=== PATIENT | male | born 1955 | race Caucasian/White ===

== ENCOUNTER → 2022-03-19 08:16 | Outpatient (BNVA) | payer MEDICARE, SELFPAY | PROVIDERS: PCP Internal Medicine; Visit Provider Psychiatry & Neurology Neurology | DX: G20 Parkinson's disease (principal); G47.52 REM sleep behavior disorder; F41.9 Anxiety disorder, unspecified | CPT/HCPCS: 99202 ==

== ENCOUNTER → 2022-06-18 07:48 | Outpatient (BNVA) | payer MEDICARE, SELFPAY | PROVIDERS: PCP Internal Medicine; Visit Provider Nurse Practitioner Family | DX: G20 Parkinson's disease (principal); G47.52 REM sleep behavior disorder; F41.9 Anxiety disorder, unspecified | CPT/HCPCS: 99212 ==

== ENCOUNTER → 2022-07-23 11:19 | Outpatient (BNVA) | payer MEDICARE, SELFPAY | PROVIDERS: PCP Internal Medicine; Visit Provider Nurse Practitioner Family | DX: G20 Parkinson's disease (principal); G47.52 REM sleep behavior disorder; F41.9 Anxiety disorder, unspecified | CPT/HCPCS: 99212 ==

== ENCOUNTER → 2022-11-13 08:52 | Outpatient (BNVA) | payer MEDICARE, SELFPAY | PROVIDERS: PCP Internal Medicine; Visit Provider Nurse Practitioner Family | DX: G20 Parkinson's disease (principal); R41.82 Altered mental status, unspecified; F41.9 Anxiety disorder, unspecified; G47.52 REM sleep behavior disorder | CPT/HCPCS: 99212 ==

== ENCOUNTER 2022-12-11 07:39 | Outpatient (REF) | payer MEDICARE, SELFPAY ==
--- NOTE | 2022-12-11 07:49 | EEG_ITS ---
This is a 16-channel EEG with an EKG lead. The patient is reported awake during the tracing. Background EEG rhythm is about 8 hertz 5 to 20 microvolt posteriorly and lower amplitude fast anteriorly. Photic stimulation does not produce any significant driving. Hypoventilation is not performed. Cardiac lead does not reveal any significant abnormality. No sharp wave spikes or paroxysmal tendency or asymmetry noted. IMPRESSION: Mild slowing with no evidence of seizure disorder. MD ANATOLY Kim/DORIS / [phone]
== END 2022-12-11 07:40 | disposition home or self-care (01) ==
LOC: HO.NEURO 07:39
PROVIDERS: PCP Internal Medicine; Visit Provider Nurse Practitioner Family
DX: R41.82 Altered mental status, unspecified (principal)
CPT/HCPCS: 95816

== ENCOUNTER 2023-05-13 09:24 | Outpatient (AMB) | payer MEDICARE, SELFPAY ==
--- NOTE | 2023-05-13 09:29 | MHC.OFFVIS ---
Intake Vital Signs 05/13/23 09:34 Weight 154 lb BP 112/62 Blood Pressure Location Lt brachial Position Sitting Pulse 70 Pulse Source Pulse Oximeter Pulse Oximetry (%) 77 L Oxygen Delivery Method Room Air Intake Visit Reasons: 6 mo f/u Parkinsons -Lvm Intake Note: F/U Parkinson, patient states he had fallen out of bed and also when stepping up on a curve. More shaking Senior Policy Analyst Required: No Allergies No Known Allergies Allergy (Verified 05/13/23 09:31) HPI HPI Comments History of Present Illness Details 67 y/o male patient presents with his for follow up of Parkinson disease. reports he is more slow in reaction and cognitive processing. No more episodes starring off. EEG result was mild slowing but not evidence of seizure. He has fall from bed, and hit his head. Now he uses bed rails to prevent to fall. He is on clonazepam 0.5 mg qHS for REM behavior. Pt's also reports that patient snores, and witnessed apnea spells. He is having non refreshing sleep with daytime sleepiness. Pt reports that his anxiety has been better with citalopram 20 mg daily. No hallucination. He is on PT four times a week. Pt is on Sinemet 25/100 mg, 1 tab TID, 6 am, 12 am and 5-6 am, he feels more tremor early in the morning and 11pm, difficulty turn and struggling pulling his blanket, and his feels him tremor in the bed. He needs helps for dressing. He uses MiraLax to manage constipation. [facility] Medical History Allergic rhinitis BPH (benign prostatic hyperplasia) CAD (coronary artery disease) Diverticulosis Hyperlipidemia Ischemic cardiomyopathy Nephrolithiasis Surgical History H/O carotid endarterectomy H/O heart surgery Family History Mother Parkinson disease Father Cirrhosis of liver Social History (Updated 05/13/23 @ 09:34 by Fozia Vargas [facility] [address]) Alcohol intake: never Patient Tobacco Use Status: Never used Tobacco Review of Systems Const All systems reviewed & are unremarkable except as noted in HPI and below Neuro Reports Abnormal speech present Physical Exam Vital Signs: Last Vital Signs Pulse 70 11/09/23 09:34 BP 112/62 05/13/23 09:34 Pulse Ox 77 L 05/13/23 09:34 Oxygen Delivery Method Room Air 05/13/23 09:34 Const General: cooperative and healthy appearing Nutritional Appearance: average body habitus Orientation/consciousness: patient oriented x3 HEENT Head: Yes normal to inspection Eyes Pupils: Equal, round and reactive pupils present Neck Other: mild antecollis Neuro Other: right wirst more stiff than left. Left hand more tremor. General: patient oriented x3 Cranial nerves: Yes Facial sensation intact/muscles of mastication intact, Yes Equal, round and reactive pupils present, Yes Bilaterally intact EOM present, Yes Nystagmus not present, Yes Normal facial strength present and Yes Midline tongue present Cognition (Neuro): normal cognition Speech: Abnormal speech present Motor exam (neuro): 5/5 motor strength present throughout Deep tendon reflexes (DTR's): Right triceps reflex intensity grade: 2+, Left triceps reflex intensity grade: 2+, Rt Biceps (C5, C6): 2+, Left biceps reflex intensity grade: 2+, Right brachioradialis reflex intensity grade: 2+, Left brachioradialis reflex intensity grade: 2+, Right patellar reflex intensity grade: 2+ and Left patellar reflex intensity grade: 2+ Psych Mental Status: mental status grossly normal Affect: normal affect Assessment & Plan Assessment & Plan (1) Anxiety: Code(s): F41.9 - Anxiety disorder, unspecified (2) Parkinson's disease: Code(s): G20 - Parkinson's disease (3) REM behavioral disorder: Code(s): G47.52 - REM sleep behavior disorder (4) Daytime sleepiness: Code(s): R40.0 - Somnolence (5) Snoring: Code(s): R06.83 - Snoring Plan Advised patient to continue citalopram 20mg qd for anxiety and clonazepam 0.5mg 1/2-1 tab along with melatonin 3 mg qhs for RBD. Continue to take Carbidopa/Levodopa 25-100 mg, 1 tab TID. Advised patient to take Sinemet 25/100 mg ER qHS. Increase fluids and continue to use miralax to manage constipation. Continue to do daily exercise. Advised patient to undergo home sleep study to assess sleep apnea. Orders: Orders RT home sleep study 05/13/23 R06.83 - Snoring, R40.0 - Somnolence Medications: New carbidopa-levodopa 25-100 mg ER 1 tab PO BEDTIME 30 days 30 tabs 2RF Coding Level of Care Code Est Pt Level 4 (03513) Diagnoses Anxiety F41.9 Parkinson's disease G20 REM behavioral disorder G47.52 Daytime sleepiness R40.0 Snoring R06.83
[2023-05-13 09:34] VITALS: BP 112/62; PULSE 70; O2SAT 77
== END 2023-05-13 10:13 | disposition home or self-care (01) ==
PROVIDERS: Visit Provider Nurse Practitioner Family
DX: G20.A1 Parkinson's disease without dyskinesia, without mention of fluctuations (principal); F41.9 Anxiety disorder, unspecified; G47.52 REM sleep behavior disorder; R40.0 Somnolence; R06.83 Snoring
CPT/HCPCS: 99214

== ENCOUNTER → 2023-05-13 09:24 | Outpatient (BNVA) | payer MEDICARE, SELFPAY | PROVIDERS: Visit Provider Nurse Practitioner Family | DX: R06.83 Snoring (principal); R40.0 Somnolence; G47.52 REM sleep behavior disorder; I25.10 Atherosclerotic heart disease of native coronary artery without angina pectoris; I25.5 Ischemic cardiomyopathy | CPT/HCPCS: 99212 ==

== ENCOUNTER 2023-10-01 13:11 | Outpatient (AMB) | payer MEDICARE, SELFPAY ==
--- NOTE | 2023-10-01 13:24 | A.OFFVIS_ITS ---
Intake Vital Signs 10/01/23 13:43 Height 5 ft 9 in Weight 147 lb BMI 21.7 BP 100/70 Blood Pressure Location Rt brachial Position Sitting Pulse 57 Pulse Source Pulse Oximeter Pulse Oximetry (%) 99 Oxygen Delivery Method Room Air Intake Visit Reasons: F/U-Confirmed Intake Note: Patient presents for f/u. Wants to know if he could get a 90 day prescription for Clonazepam. 90 day for Carbidopa/Levodopa ER and would like for prescriptions to be send to [facility] mail service pharmacy. More sweating at night and strong under arm body order pt wants to know if is the meds or the Parkinson's? More confusion and more memory loss. Allergies No Known Allergies Allergy (Verified 10/01/23 13:35) HPI HPI Comments History of Present Illness Details 67 y/o male patient presents with his wi fe for follow up of Parkinson disease. reports he is more slow in reaction and cognitive processing. No more episodes starring off. EEG result was mild slowing but not evidence of seizure. 67 y/o male patient presents with his wi fe for follow up of Parkinson disease. reports he is more slow in reaction and cognitive processing. No more episodes starring off. EEG result was mild slowing but not evidence of seizure. October 10 home sleep study scheduled. He has fall from bed, and hit his head. Now he uses bed rails to prevent to fall. He is on clonazepam 0.5 mg qHS for REM behavior. Pt's also reports that patient snores, and witnessed apnea spells. He is having non refreshing sleep with daytime sleepiness. Pt reports that his anxiety has been better with citalopram 20 mg daily. No hallucination. He is on PT four times a week. Pt is on Sinemet 25/100 mg, 1 tab TID, 9 am, 2 pm and 7 pm, He needs helps for dressing. He uses MiraLax to manage constipation. He has fall from bed, and hit his head. Now he uses bed rails to prevent to fall. He is on clonazepam 0.5 mg qHS for REM behavior. Pt's also reports that patient snores, and witnessed apnea spells. He is having non refreshing sleep with daytime sleepiness. Pt reports that his anxiety has been better with citalopram 20 mg daily. No hallucination. He is on PT four times a week. Pt is on Sinemet 25/100 mg, 1 tab TID, 6 am, 12 am and 5-6 am, he feels more tremor early in the morning and 11pm, difficulty turn and struggling pulling his blanket, and his feels him tremor in the bed. He needs helps for dressing. He uses MiraLax to manage constipation. [facility] Medical History Allergic rhinitis BPH (benign prostatic hyperplasia) CAD (coronary artery disease) Diverticulosis Hyperlipidemia Ischemic cardiomyopathy Nephrolithiasis Surgical History H/O carotid endarterectomy H/O heart surgery Family History Mother Parkinson disease Father Cirrhosis of liver Social History Alcohol intake: never Patient Tobacco Use Status: Never used Tobacco Physical Exam Vital Signs: Last Vital Signs Pulse 57 10/01/23 13:43 BP 100/70 10/01/23 13:43 Pulse Ox 99 10/01/23 13:43 Oxygen Delivery Method Room Air 10/01/23 13:43 BMI result Body Mass Index 21.7 Assessment & Plan Assessment & Plan (1) Anxiety: Code(s): F41.9 - Anxiety disorder, unspecified (2) Parkinson's disease: Code(s): G20 - Parkinson's disease (3) REM behavioral disorder: Code(s): G47.52 - REM sleep behavior disorder (4) Daytime sleepiness: Code(s): R40.0 - Somnolence (5) Snoring: Code(s): R06.83 - Snoring Plan Advised patient to continue citalopram 20mg qd for anxiety and clonazepam 0.5mg 1/2-1 tab along with melatonin 3 mg qhs for RBD. Continue to take Carbidopa/Levodopa 25-100 mg, 1 tab TID. Advised patient to take Sinemet 25/100 mg ER qHS. Increase fluids and continue to use miralax to manage constipation. Continue to do daily exercise. Advised patient to undergo home sleep study to assess sleep apnea. Coding Diagnoses Anxiety F41.9 Parkinson's disease G20 REM behavioral disorder G47.52 Daytime sleepiness R40.0 Snoring R06.83
--- NOTE | 2023-10-01 13:41 | A.OFFVIS_ITS ---
Intake Vital Signs 10/01/23 13:43 Height 5 ft 9 in Weight 147 lb BMI 21.7 BP 100/70 Blood Pressure Location Rt brachial Position Sitting Pulse 57 Pulse Source Pulse Oximeter Pulse Oximetry (%) 99 Oxygen Delivery Method Room Air Intake Visit Reasons: F/U-Confirmed Intake Note: Patient presents for F/U. Pt. wants to know if he could get a 90 day pre scription for Clonazepam. 90 day prescription for Carbidopa/Levodopa ER. Would like prescriptions to be send to [facility] service pharmacy. More sweating at night and srtong odor under arms. Pt. wants to know if it's the meds or the Parkinsons? Confusion and more memory loss. Allergies No Known Allergies Allergy (Verified 10/01/23 13:35) HPI HPI Comments History of Present Illness Details 68 y/o male patient presents with his wi fe for follow up of Parkinson disease. Pt is on Sinemet 25/100 mg, 1 tab TID, 9 am, 2 pm and 7 pm. Pt started Sinemet ER since the last visit. He states that he has less tremor, can move more easily at night, and early in the morning. He still needs helps for dressing. He uses MiraLax to manage constipation. He walks slowly, but no freezing episodes or falls He is on clonazepam 0.5 mg qHS for REM behavior. He sleeps well, uses bed rails. Pt's also reports that patient snores, and witnessed apnea spells. He is having non refreshing sleep with daytime sleepiness. Home sleep study scheduled on October,. Pt reports that his anxiety has been better with citalopram 20 mg daily. No hallucination. [facility] Medical History Allergic rhinitis BPH (benign prostatic hyperplasia) CAD (coronary artery disease) Diverticulosis Hyperlipidemia Ischemic cardiomyopathy Nephrolithiasis Surgical History H/O carotid endarterectomy H/O heart surgery Family History Mother Parkinson disease Father Cirrhosis of liver Social History Alcohol intake: never Patient Tobacco Use Status: Never used Tobacco Review of Systems Const All systems reviewed & are unremarkable except as noted in HPI and below Neuro Reports Abnormal speech present Physical Exam Vital Signs: Last Vital Signs Pulse 57 10/01/23 13:43 BP 100/70 10/01/23 13:43 Pulse Ox 99 10/01/23 13:43 Oxygen Delivery Method Room Air 10/01/23 13:43 BMI result Body Mass Index 21.7 Const General: cooperative and healthy appearing Nutritional Appearance: average body habitus Orientation/consciousness: patient oriented x3 HEENT Head: Yes normal to inspection Eyes Pupils: Equal, round and reactive pupils present Neck Other: mild antecollis Neuro Other: right wirst more stiff than left. Left hand more tremor. General: patient oriented x3 Cranial nerves: Yes Facial sensation intact/muscles of mastication intact, Yes Equal, round and reactive pupils present, Yes Bilaterally intact EOM present, Yes Nystagmus not present, Yes Normal facial strength present and Yes Midline tongue present Cognition (Neuro): normal cognition Speech: Abnormal speech present Motor exam (neuro): 5/5 motor strength present throughout Deep tendon reflexes (DTR's): Right triceps reflex intensity grade: 2+, Left triceps reflex intensity grade: 2+, Rt Biceps (C5, C6): 2+, Left biceps reflex intensity grade: 2+, Right brachioradialis reflex intensity grade: 2+, Left brachioradialis reflex intensity grade: 2+, Right patellar reflex intensity grade: 2+ and Left patellar reflex intensity grade: 2+ Psych Mental Status: mental status grossly normal Affect: normal affect Assessment & Plan Assessment & Plan (1) Anxiety: Code(s): F41.9 - Anxiety disorder, unspecified (2) Parkinson's disease: Code(s): G20 - Parkinson's disease (3) REM behavioral disorder: Code(s): G47.52 - REM sleep behavior disorder (4) Daytime sleepiness: Code(s): R40.0 - Somnolence (5) Snoring: Code(s): R06.83 - Snoring Plan Advised patient to continue citalopram 20mg qd for anxiety and clonazepam 0.5mg 1/2-1 tab for RBD. Continue to take Carbidopa/Levodopa 25-100 mg, 1 tab TID and Sinemet 25/100 mg ER qHS. Increase fluids and continue to use miralax to manage constipation. Continue to do daily exercise. Advised patient to undergo home sleep study to assess sleep apnea. Coding Level of Care Code Est Pt Level 4 (57900) Diagnoses Anxiety F41.9 Parkinson's disease G20 REM behavioral disorder G47.52 Daytime sleepiness R40.0 Snoring R06.83
[2023-10-01 13:43] VITALS: BP 100/70; PULSE 57; O2SAT 99; BMI 21.7
== END 2023-10-01 14:20 | disposition home or self-care (01) ==
PROVIDERS: PCP Internal Medicine; Visit Provider Nurse Practitioner Family
DX: G20.A1 Parkinson's disease without dyskinesia, without mention of fluctuations (principal); F41.9 Anxiety disorder, unspecified; G47.52 REM sleep behavior disorder; R40.0 Somnolence; R06.83 Snoring
CPT/HCPCS: 99214

== ENCOUNTER → 2023-10-01 13:11 | Outpatient (BNVA) | payer MEDICARE, SELFPAY | PROVIDERS: PCP Internal Medicine; Visit Provider Nurse Practitioner Family | DX: G20.A1 Parkinson's disease without dyskinesia, without mention of fluctuations (principal); F41.9 Anxiety disorder, unspecified; G47.52 REM sleep behavior disorder; R40.0 Somnolence; R06.83 Snoring | CPT/HCPCS: 99212 ==

== ENCOUNTER → 2023-10-11 12:46 | Outpatient (REF) | payer MEDICARE, SELFPAY | LOC: HO.SL 12:46 | PROVIDERS: PCP Internal Medicine; Visit Provider Nurse Practitioner Family | DX: G47.33 Obstructive sleep apnea (adult) (pediatric) (principal); R06.83 Snoring; R40.0 Somnolence; G47.52 REM sleep behavior disorder; I25.10 Atherosclerotic heart disease of native coronary artery without angina pectoris; I25.5 Ischemic cardiomyopathy | CPT/HCPCS: 95806 ==

== ENCOUNTER → 2023-10-11 13:24 | Outpatient (BNV) | payer MEDICARE, SELFPAY | PROVIDERS: PCP Internal Medicine; Visit Provider Psychiatry & Neurology Neurology | DX: G47.33 Obstructive sleep apnea (adult) (pediatric) (principal) | CPT/HCPCS: 95806 ==

== ENCOUNTER 2024-03-30 11:21 | Outpatient (AMB) | payer MEDICARE, SELFPAY ==
--- NOTE | 2024-03-30 11:22 | A.OFFVIS_ITS ---
Vital Signs 03/30/24 11:26 Height 5 ft 9 in Weight 142 lb 4 oz BMI 21.0 BP 80/60 L Blood Pressure Location Rt brachial Position Sitting Pulse 84 Pulse Source Pulse Oximeter Pulse Oximetry (%) 98 Oxygen Delivery Method Room Air Intake Visit Reasons: 6 mo f/u Intake Note: Patint presents for a 6 mo fu- Parkinson's disease. 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 Pt is on Sinemet 25/100 mg, 1 tab TID, 9 am, 2 pm and 7 pm. and CR at bedtime. His memory is worse. He has trouble expressing , slow responses. He still needs helps for dressing. He uses MiraLax to manage constipation. He walks slowly, but no freezing episodes or falls He is on clonazepam 0.5 mg qHS for REM behavior and he is better. He sleeps well, uses bed rails. He was diagnosed with VAN and started on AUtoPAP 5-20 but he is unable to tolerate it Pt reports that his anxiety has been better with citalopram 20 mg daily. No hallucination. [facility] Medical History (Updated 03/30/24 @ 14:13 by Beth Charles MD) Obstructive sleep apnea Allergic rhinitis Nephrolithiasis BPH (benign prostatic hyperplasia) Ischemic cardiomyopathy Hyperlipidemia Diverticulosis CAD (coronary artery disease) Surgical History H/O carotid endarterectomy H/O heart surgery Family History Mother Parkinson disease Father Cirrhosis of liver Social History Alcohol intake: never Patient Tobacco Use Status: Never used Tobacco Review of Systems Neuro Reports Abnormal speech present Physical Exam Vital Signs: Last Vital Signs Pulse 84 03/30/24 11:26 BP 80/60 L 03/30/24 11:26 Pulse Ox 98 03/30/24 11:26 Oxygen Delivery Method Room Air 03/30/24 11:26 BMI result Body Mass Index 21.0 Const General: cooperative and healthy appearing Nutritional Appearance: average body habitus Orientation/consciousness: patient oriented x3 HEENT Head: Yes normal to inspection Eyes Pupils: Equal, round and reactive pupils present Neck Other: mild antecollis Neuro Other: right wirst more stiff than left. Left hand more tremor. FFM and foot taps decreased L>R General: patient oriented x3 Cranial nerves: Yes Facial sensation intact/muscles of mastication intact, Yes Equal, round and reactive pupils present, Yes Bilaterally intact EOM present, Yes Nystagmus not present, Yes Normal facial strength present and Yes Midline tongue present Cognition (Neuro): normal cognition Speech: Abnormal speech present Motor exam (neuro): 5/5 motor strength present throughout Psych Mental Status: mental status grossly normal Affect: normal affect Assessment & Plan Assessment & Plan (1) Parkinson's disease: Code(s): G20 - Parkinson's disease Category: Medical Qualifiers: Dyskinesia presence: without dyskinesia Fluctuating manifestations: without fluctuating manifestations Qualified Code(s): G20.A1 - Parkinson's disease without dyskinesia, without mention of fluctuations (2) Anxiety: Code(s): F41.9 - Anxiety disorder, unspecified Category: Medical (3) REM behavioral disorder: Code(s): G47.52 - REM sleep behavior disorder Category: Medical (4) Obstructive sleep apnea: Code(s): G47.33 - Obstructive sleep apnea (adult) (pediatric) Category: Medical Plan Advised patient to continue citalopram 20mg qd for anxiety and clonazepam 0.5mg 1/2-1 tab for RBD. Increase Carbidopa/Levodopa 25-100 mg, 1 tab qid and Sinemet 25/100 mg ER qHS. Increase fluids and continue to use miralax to manage constipation. Continue to do daily exercise. will refer to [facility] for oral device to help with sleep apnea. Patient is unable to tolerate CPAP Orders: Referrals Dentistry Referral G47.33 - Obstructive sleep apnea (adult) (pediatric) Medications: Changed From carbidopa-levodopa 25-100 mg 1 tab PO TID 90 days 270 tabs 1RF To carbidopa-levodopa 25-100 mg 1 tab PO QID 90 days 360 tabs 1RF Coding Level of Care Code Est Pt Level 4 (88097) Complex EM visit Add On G2211 Diagnoses Parkinson's disease without dyskinesia or fluctuating manifestations G20.A1 Dyskinesia presence: without dyskinesia Fluctuating manifestations: without fluctuating manifestations Anxiety F41.9 REM behavioral disorder G47.52 Obstructive sleep apnea G47.33
[2024-03-30 11:26] VITALS: BP 80/60; PULSE 84; O2SAT 98; BMI 21.0
== END 2024-03-30 11:56 | disposition home or self-care (01) ==
PROVIDERS: PCP Internal Medicine; Visit Provider Psychiatry & Neurology Neurology
DX: G20.A1 Parkinson's disease without dyskinesia, without mention of fluctuations (principal); F41.9 Anxiety disorder, unspecified; G47.52 REM sleep behavior disorder; G47.33 Obstructive sleep apnea (adult) (pediatric)
CPT/HCPCS: 99214; G2211

== ENCOUNTER → 2024-03-30 11:21 | Outpatient (BNVA) | payer MEDICARE, SELFPAY | PROVIDERS: PCP Internal Medicine; Visit Provider Psychiatry & Neurology Neurology | DX: G20.A1 Parkinson's disease without dyskinesia, without mention of fluctuations (principal); G47.52 REM sleep behavior disorder; G47.33 Obstructive sleep apnea (adult) (pediatric); F41.9 Anxiety disorder, unspecified | CPT/HCPCS: 99212 ==

== ENCOUNTER 2024-08-02 11:08 | Outpatient (AMB) | payer MEDICARE, SELFPAY ==
--- NOTE | 2024-08-02 11:22 | A.OFFVIS_ITS ---
Vital Signs 08/02/24 11:23 Height 5 ft 9 in Weight 149 lb BMI 22.0 BP 90/62 Blood Pressure Location Rt brachial Position Sitting Intake Visit Reasons: 4m follow up Intake Note: Patient presents for 4 month follow up Allergies No Known Allergies Allergy (Verified 08/02/24 11:24) Medication List - Last Reconciled 08/02/24 by Beth Charles MD aspirin (Adult Low Dose Aspirin) 81 mg PO DAILY carbidopa-levodopa 25-100 mg 1 tab PO QID 90 days carbidopa-levodopa 25-100 mg ER 1 tab PO BEDTIME 90 days citalopram 20 mg PO DAILY 90 days clonazepam 0.5 mg PO BEDTIME 90 days evolocumab (Repatha SureClick) 140 mg subcut Q2W polyethylene glycol 3350 (Miralax) 17 grams PO DAILY HPI Comments Details: 69 y/o male patient presents with his for follow up of Parkinson disease.He is slower with his ADLS since his last visit.He needs occasional help with putting on his shirt .He had 1 fall last month while he was working out side - tripped on something.SPeech is slower , Memory is slower. Pt is on Sinemet 25/100 mg, 1 tab TID, 9 am, 2 pm and 7 pm. and CR at bedtime. He uses MiraLax to manage constipation. He is on clonazepam 0.5 mg qHS for REM behavior and he is better. He sleeps well, uses bed rails. He was diagnosed with VAN and started on AUtoPAP 5-20 but he is unable to tolerate it AHI was 14 and O 2 melanie was 81 % Pt reports that his anxiety has been better with citalopram 20 mg daily. No hallucination. [facility] Medical History Obstructive sleep apnea Allergic rhinitis Nephrolithiasis BPH (benign prostatic hyperplasia) Ischemic cardiomyopathy Hyperlipidemia Diverticulosis CAD (coronary artery disease) Surgical History H/O carotid endarterectomy H/O heart surgery Family History Mother Parkinson disease Father Cirrhosis of liver Social History Alcohol intake: never Patient Tobacco Use Status: Never used Tobacco Review of Systems Neuro Reports Abnormal speech present Physical Exam Vital Signs: Last Vital Signs BP 90/62 08/02/24 11:23 BMI result Body Mass Index 22.0 Const General: cooperative and healthy appearing Nutritional Appearance: average body habitus Orientation/consciousness: patient oriented x3 HEENT Head: Yes normal to inspection Eyes Pupils: Equal, round and reactive pupils present Neck Other: mild antecollis Neuro Other: right wrist more stiff than left. Left hand more tremor. FFM and foot taps decreased L>R- slower than last visit General: patient oriented x3 Cranial nerves: Yes Facial sensation intact/muscles of mastication intact, Yes Equal, round and reactive pupils present, Yes Bilaterally intact EOM present, Yes Nystagmus not present, Yes Normal facial strength present and Yes Midline tongue present Cognition (Neuro): normal cognition Speech: Abnormal speech present Motor exam (neuro): 5/5 motor strength present throughout Psych Mental Status: mental status grossly normal Affect: normal affect Assessment & Plan Assessment & Plan (1) Parkinson's disease: Code(s): G20 - Parkinson's disease Category: Medical Qualifiers: Dyskinesia presence: without dyskinesia Fluctuating manifestations: without fluctuating manifestations Qualified Code(s): G20.A1 - Parkinson's disease without dyskinesia, without mention of fluctuations (2) Anxiety: Code(s): F41.9 - Anxiety disorder, unspecified Category: Medical (3) REM behavioral disorder: Code(s): G47.52 - REM sleep behavior disorder Category: Medical (4) Obstructive sleep apnea: Code(s): G47.33 - Obstructive sleep apnea (adult) (pediatric) Category: Medical Plan Advised patient to continue citalopram 20mg qd for anxiety and clonazepam 0.5mg 1/2-1 tab for RBD. Increase Carbidopa/Levodopa 25-100 mg, 1.5 tab qid and Sinemet 25/100 mg ER qHS. Increase fluids and continue to use miralax to manage constipation. Continue to do daily exercise. will refer to [facility] for oral device to help with sleep apnea. Patient is unable to tolerate CPAP Orders: Orders PT Evaluation and Treatment Today G20.A1 - Parkinson's disease without dyskinesia, without mention of fluctuations Referrals Speech and Hearing Referral G20.A1 - Parkinson's disease without dyskinesia, without mention of fluctuations, R41.3 - Other amnesia Dentistry Referral G47.33 - Obstructive sleep apnea (adult) (pediatric) Medications: Changed From carbidopa-levodopa 25-100 mg 1 tab PO QID 90 days 360 tabs 1RF To carbidopa-levodopa 25-100 mg 1.5 tabs PO QID 90 days 540 tabs 1RF Coding Level of Care Code Est Pt Level 4 (59777) Complex EM visit Add On G2211 Diagnoses Parkinson's disease without dyskinesia or fluctuating manifestations G20.A1 Dyskinesia presence: without dyskinesia Fluctuating manifestations: without fluctuating manifestations Anxiety F41.9 REM behavioral disorder G47.52 Obstructive sleep apnea G47.33
[2024-08-02 11:23] VITALS: BP 90/62; BMI 22.0
--- OUTSIDE RECORDS SUMMARY | 2024-08-02 13:25 | XMS_ITS | Encounter Summary ---
Author Organization [facility] Address [address] [place] [address] Care Team Providers Care Carpet Journeyman Name Role Phone Miguel Chowdary MD Primary Care Provider [phone] Reason for Referral * Imaging (Routine) - Authorized Specialty Diagnoses / Procedures Referred By Suzy posada Referred To Contact Radiology Diagnoses Weight loss Decreased appetite History of myocardial infarct at age greater than [address] of the abdomen Procedures XR Esophagram Sukhdeep Schneider PA [address] [address] Referral ID Status Reason Start Date Expiration Date V isits Requested Visits Authorized [id number] Authorized 05/29/2024 05/29/2025 1 1 Reason for Visit * Reason Comments Weight Loss Encounter Details Date Type Department Care Team (Late st Contact Info) Description 05/29/2024 10:20 AM EST Office Visit Gastroenterology - [place] 175 [place] [address] [phone] Sukhdeep Schneider PA 175 [facility] [address] [place] [address] Weight loss (Primary Dx); Decreased appetite; History of myocardial infarct at age greater than 60 years; Abnormal CT of the abdomen Social History Tobacco Use Types Packs/Day Years Used Date Smoking Tobacco: Never Smokeless Tobacco: Never Alcohol Use Standard Drinks/Week Comments Not Currently 0 (1 standard drink = 0.6 oz pur e alcohol) Housing Instability Answer Date Recorde d Are you worried that in the next 2 months you may not have stable housing? Patient declined 06/22/2024 Food Access & Nutrition Answer Date Rec orded Do you have access to a vari ety of food including fruits and vegetables? Patient declined 06/22/2024 Health Literacy Answer Date Recorded How often do you need to hav e someone help you when you read instructions, pamphlets, or other written material from your doctor or pharmacy? Patient declined 06/22/2024 Caregiver: How often do you need to have someone help you when you read instructions, pamphlets, or other written material from your doctor or pharmacy? Not on file Financial Risk Answer Date Recorded How hard is it for you to pa y for the very basics like food, housing, medical care, and air conditioning / heating? Patient declined 06/22/2024 Transportation Answer Date Recorded Has the lack of transportati on kept you from meetings, work, or from getting things needed for daily living? Patient declined 06/22/2024 Has the lack of transportati on kept you from medical appointments or from getting medications? Patient declined 06/22/2024 Social Isolation Answer Date Recorded How often do you feel lonely or isolated from those around you? Patient declined 06/22/2024 Food Risk Answer Date Recorded Within the past 12 months we worried whether our food would run out before we got money to buy more. Patient declined 024 Within the past 12 months th e food we bought just didn't last and we didn't have money to get more. Patient declined 06/04 Dependent Care Answer Date Recorded Do you need help finding or paying for care for your loved ones. For example, child life assistant or elderly care for an older adult? Patient declined 06/22/2024 Education Answer Date Recorded Do you think completing more education or training, like finishing a GED, going to college, or learning a trade, would be helpful for you? Patient declined 06/22/2024 Employment and Income Answer Date Recor ded During the last four weeks, have you been actively looking for work? Unable to respond 06/22/2024 Living Situation Answer Date Recorded What is your living situation? 1 08/23/2023 Interpersonal Safety Answer Date Record ed Physical Abuse 06/08/2024 Verbal Abuse 06/08/2024 Sex and Gender Information Value Date Recorded Sex Assigned at Not on file Gender Identity Not on file Sexual Orientation Not on file Job Start Date Occupation Industry Not on file Not on file Not on file documented as of this encounter Last Filed Vital Signs Vital Sign Reading Time Taken Comments Blood Pressure 122/76 05/29/2024 10:22 AM EST Pulse 140 05/29/2024 10:22 AM EST Temperature - - Respiratory Rate - - Oxygen Saturation - - Inhaled Oxygen Concentration - - Weight 65.1 kg (143 lb 9.6 oz) 05/29/2024 10:22 AM EST Height 177.8 cm (5' 10 ) 05/29/2024 10:22 AM EST Body Mass Index 20.6 05/29/2024 10:22 AM EST documented in this encounter Patient Instructions * Attachments The following attachments cannot be sent through Care Everywhere. * CAD (Coronary Artery Disease): General Info (Barbadian) * Coronary Artery Disease (Barbadian) * Statins (Barbadian) * Weight Loss: Abnormal (Barbadian) documented in this encounter Progress Notes * REID Miranda - 05/29/2024 10:20 AM EST Patient seen for further discussion regarding weight loss and abnormal CT. Patient had reported losing about 15 lbs over the last couple of months and weight loss was unintentional. Patient underwentCT in Apr and it was noted for circumfrential wall thickening of the gastric antrum with a suggested direct visualization- EGD. Patient also reports that his appetite has slightly increased and has gain several pounds back. Patient also has had a colonoscopy several years ago but need the update study to verify the suggested repeat timeframe. Patient remarks that he did have an WV about 4 yrs agoand has not had the same appetite since. Does report issues with swallowing and choking with almostevery meal and suggest a modified barium swallow to further evaluate his choking episodes * REID Miranda - 05/29/2024 10:20 AM EST DENTIFIER: Kalia Taylor is a 68 y.o. old male who presents to the gastroenterology department todayfor re-evaluation of weight loss and abnormal CT as well as choking episodes. The biopsies of your stomach are showing mild inflammation associated with irritants. They do not contain any changes that were precancerous or associated with significant active inflammation or infection. HPI: 68-year-old gentleman seen for further discussion regarding weight loss and abnormal CT. Patient is accompanied by his . Patient had reported losing about 15 lbs over the last couple of months and weight loss was unintentional. Patient underwent CT in Apr and it was noted for circumfrential wall thickening of the gastric antrum with a suggested direct visualization- EGD. Patient also reports that his appetite has slightly increased in the recent past and has gain several pounds back. Patient denies any pain before or after eating. Patient also has had a colonoscopy in October 2021. There were 2 tubular adenomas that were removed from the transverse colon with a recommended 5-year repeat which would be in 2026. Patient remarks that he did have an WV about 4 yrs ago and has not had the same appetite since. Does report issues with swallowing and choking with almost every meal and suggest a modified bariumswallow to further evaluate his choking episodes. There is a question of whether he is also aspirating thus the decision for the modified barium swallow ROS: GENERAL: No malaise, significant weight loss or fever HEENT: No changes in hearing or vision, nose bleeds or swallowing problems NECK: No lumps, goiter, pain or significant neck swelling RESPIRATORY: No cough, wheezing or shortness of breath CARDIOVASCULAR: No chest pain, leg swelling or palpitations, history of WV in 2019 GI: Positive for episodes of choking and dysphagia, positive for abnormal CT, positive for polyps removed, weight loss MUSCULOSKELETAL: No joint pain or swelling, back pain, or muscle pain. SKIN: No lesions, rash or itching Neuro: Positive for Parkinson's disease The remainder of the review of systems is reviewed and negative. PAST MEDICAL HISTORY: Patient Active Problem List Diagnosis Date Noted Spinal stenosis of lumbar region with radiculopathy 05/16/2024 Chronic heart failure with preserved ejection fraction (HFpEF) ([facility]) 10/08/2023 Anxiety 12/21/2022 Parkinson disease ([facility]) 12/21/2022 Primary insomnia 12/21/2022 Primary hypertension 02/13/2022 STEMI involving right coronary artery ([facility]) 02/13/2022 Bilateral carotid artery stenosis 05/20/2021 Diverticulosis 04/05/2020 Ischemic cardiomyopathy 04/05/2020 Mixed hyperlipidemia 04/05/2020 Peyronie's disease 04/05/2020 Coronary artery disease involving [place] coronary artery of [place] heart without angina pectoris 12/21/2019 BPH (benign prostatic hyperplasia) 08/31/2014 Nephrolithiasis 07/31/2008 Allergic rhinitis 07/28/2005 SOCIAL HISTORY: Social History Tobacco Use Smoking status: Never Smokeless tobacco: Never Substance Use Topics Alcohol use: Not Currently FAMILY HISTORY: Family History Problem Relation Name Age of Onset Coronary artery disease Mother Coronary artery disease Father ACTIVE MEDICATIONS: Outpatient Medications Marked as Taking for the 05/29/24 encounter (Office Visit) with REID Miranda Medication Sig Dispense Refill aspirin 81 mg EC tablet Take 1 tablet (81 mg total) by mouth 1 (one) time each day. carbidopa-levodopa (Rytary) 23.75-95 mg per XR capsule Take by mouth at bedtime. carbidopa-levodopa (SINEMET) 25-100 mg per tablet Take 1 Tablet by mouth 4 times daily. citalopram (CeleXA) 10 mg tablet Take 1 tablet (10 mg total) by mouth 1 (one) time each day. clonazePAM (KlonoPIN) 0.5 mg tablet TAKE 1 TABLET BY MOUTH DAILY AT BEDTIME. ADMINISTER 30 MINUTES BEFORE BEDTIME evolocumab (Repatha Syringe) 140 mg/mL syringe Inject 140 mg into the skin. Every 14 days polyethylene glycol (MIRALAX) 17 gram packet Take 17 g by mouth daily. ALLERGIES: @ALL@ PHYSICAL EXAM: Visit Vitals BP 122/76 Pulse (!) 140 Ht 1.778 m (70 ) Wt 65.1 kg (143 lb 9.6 oz) BMI 20.60 kg/m?? Smoking Status Never BSA 1.81 m?? APPEARANCE: Alert and in no acute distress EYES: PERRLA, conjunctiva and sclera normal. MOUTH/THROAT: no erythema or exudates NECK: Neck supple, no adenopathy HEART: RRR with normal S1 and S2, no murmurs appreciated LUNG: clear to auscultation LYMPH NODES: grossly normal ABDOMEN: Soft, nontender, normal active bowel sounds throughout, no organomegaly RECTAL: Exam deferred. EXTREMITIES: Extremities warm and well perfused SKIN: Skin color, texture, turgor normal. LABS: No results found for: WBC , HGB , HCT , MCV , PLT , NA , K , CL , CO2 , GLUCOSE , BUN , CREATININE , CALCIUM , PROT , ALBUMIN , BILITOT , AST , ALT , URICACID , PHOS , MG , ALKPHOS , EGFR No results found for: SEDRATE , CRP , IRON , FERRITIN , CDIFFTOX , HPYLORI , STOOLCX , LIPASE , APTT , PT , INR , CELIAC , TTGIGA , GLIADINIGA , OCCULTBLD , CALPROTECTIN IMAGING: MRI OF LUMBAR SPINE NO CONTRAST MRI OF LUMBAR SPINE NO CONTRAST MR OF THE LUMBAR SPINE WITHOUT CONTRAST HISTORY: Left-sided sciatica. Technique: MR of the lumber spine was performed without contrast utilizing the standard departmental protocol. COMPARISON: Lumbar spine 04/20/2020. FINDINGS: Conus medullaris terminates at the [L2] level, and demonstrates normal signal. There is no abnormal thickening or clumping of the cauda equina nerve roots. There is slight retrolisthesis of L1 on L2. There is slight retrolisthesis of L2 on L3. There is slight retrolisthesis of L3 on L4. There is retrolisthesis of L5 relative to both L4 and S1. Vertebral body heights are normal. There is signal change of the bone marrow the endplates at multiple levels consistent with degenerative change.. There is disc desiccation at every level. There are parapelvic cysts of both kidneys. At T12-L1, there is disc bulging and endplate spurring on the sagittal sequences. No central canal stenosis. At L1-L2, there is slight retrolisthesis of L1 on L2. There is generalized disc bulging with bilateral lateral disc bulging, endplate spurring, and mild bilateral neural foraminal narrowing. No central canal stenosis . At L2-L3, there is slight retrolisthesis of L2 on L3. There is generalized disc bulging with bilateral lateral disc bulging right greater than left, endplate spurring, mild right neural foraminal narrowing and moderate left neural foraminal narrowing. No central canal stenosis . There is bilateral lateral recess narrowing with contact with the bilateral L3 nerve roots. At L3-L4, there is slight retrolisthesis of L3 on L4. There is generalized disc bulging with bilateral lateral disc bulging and small central disc herniation extending slightly caudad from the disc space, endplate spurring, ligamentous bulging, facet hypertrophy, severe left neural foraminal narrowing and mild left neural foraminal narrowing. There is bilateral lateral recess narrowing, left greater than right. There is mild central canal stenosis . At L4-L5, there is retrolisthesis of L5 relative to L4. There is generalized disc bulging with bilateral lateral disc bulging, moderate right neural foraminal narrowing, left neural foraminal narrowing, ligamentous bulging, severe facet hypertrophy, severe central stenosis stenosis with bunching of the nerve roots, and bilateral lateral recess stenosis with compression of the L5 nerve roots bilaterally. There is a small left paracentral disc herniation/bulge extending slightly craniad from the disc space and contacting the exiting left L4 nerve root. At L5-S1, there is disc space narrowing and retrolisthesis of L5 on S1. There is diffuse disc bulging with bilateral lateral disc bulging and small central disc bulge, extensive endplate spurring, moderate facet hypertrophy, moderate to severe bilateral neural foraminal narrowing with contact with the bilateral L5 nerve roots. There is bilateral lateral recess narrowing. No central canal stenosis.. IMPRESSION: IMPRESSION: Multilevel bony and discogenic degenerative changes as described. Severe central canal stenosis at L4-5. Compression L5 nerve roots bilaterally. Other findings as described. Not Vldtd CT Results for orders placed in visit on 04/14/24 CT ABD \T\ PELVIS W/CONTRAST Narrative CT ABD & PELVIS W/CONTRAST TECHNIQUE: Multidetector-row CT of the abdomen and pelvis was performed after administration of intravenous contrast (90 cc of Isovue-370) using tailored dose modulation techniques. Images were reconstructed in the axial, coronal, and sagittal planes. COMPARISON: Abdomen/pelvis CT on June 21, 2023. HISTORY: Unintentional weight loss. FINDINGS: Lower Chest: See separately dictated concurrently obtained chest CT report. Liver: Some of the hypodense hepatic lesions, the largest measuring 0.8 cm in the left hepatic lobe (3:18) are unchanged from previous CT that was obtained without intravenous contrast. Biliary: Normal gallbladder. No biliary ductal dilatation. Spleen: No splenomegaly. No focal splenic lesions. Pancreas: Unremarkable. Adrenal Glands: No nodules. Kidneys/Ureters: Bilateral parapelvic cysts. No hydronephrosis. Bowel: Orally administered contrast has reached the mid transverse colon. Circumferential wall thickening of the gastric antrum (3:32). No bowel distention. Moderate stool load within the proximal colonic loops. Peritoneum/Retroperitoneum: No free fluid or free air. Lymph Nodes: No lymphadenopathy. Pelvic Organs/Bladder: Urinary bladder is decompressed. Prostatomegaly. Vessels: No abnormality aortic aneurysm. Mild atherosclerotic disease with calcifications. Bones/Soft Tissues: Degenerative changes along the spine. No suspicious bone lesions. Chronic large coarse calcifications in the surface of the left gluteal musculature and in smaller amount on the right side. Impression IMPRESSION: 1. No suspicious masses or acute findings in the abdomen/pelvis. 2. Circumferential wall thickening of the gastric antrum without resulting in obstruction, of unclear clinical significance. If clinically concerning, consider correlation with endoscopy. 3. Prostatomegaly. IMPRESSION: 1. Weight loss 2. Decreased appetite 3. History of myocardial infarct at age greater than [address] of the abdomen PLAN: 1. Weight loss, decreased appetite, abnormal CT of abdomen, history of WV Patient states that since he had his WV in 2019, he has not had the same appetite. His states that he lost about 20 pounds over the last 10 months or so but patient feels that he has gained several pounds back. He does remark that his appetite has changed and does feel full easy. Due to his weight loss his PCP had ordered a CT of abdomen and pelvis. The results of the CT showed circumferential thickening of the antrum with a suggested direct visualization. Patient is not having any epigastric pain. Patient is having some issues with swallowing and more so with choking and there is a question of aspiration pneumonia so he will be scheduled for sinew with speech for further evaluation. Due to the abnormal finding on the CT, it is suggested that patient undergo an patient will be notified about the date for the endoscopy. The procedure(s) was explained to the patient and all questions were answered. The list of complications include: perforation, infection, bleeding, reaction to medications, and incomplete examination. Treatments that might be necessary to correct these complications if they occur include resting athome, hospitalization, intravenous fluid therapy, antibiotic therapy, blood transfusion, and rarely, surgery. Patient has been advised that they will need an escort home following the procedure. If the EGD is in the AM, they are aware that no food or drink after midnight. If procedure is after 11 AM, then nofood or drink eight hours prior to procedure. Patient to follow up in office as scheduled after procedure. Total time of today's encounter is 36 minutes in preparing to see the patient, reviewing labs, diagnostic studies as well as other provider notes, documenting in charting, creating an HPI, performinga medically appropriate exam, counseling patient length in regards to choking and dysphagia as wellas abnormal CT There was documentation in EMR after visit. None of which time was spent performing s eparately billable procedures or ancillary services. Much appreciation for allowing us to participate in patient's care Orders Placed This Encounter Procedures XR Esophagram XR Speech Evaluation w Cine/Video ADDITIONAL ORDERS: XR ESOPHAGRAM XR SPEECH EVALUATION W CINE/VIDEO REID Miranda documented in this encounter Plan of Treatment Upcoming Encounters Date Type Department Care Team (Late st Contact Info) Description 08/04/2024 2:00 PM EST Consult Orthopedics [address] [phone] Lokesh Floyd PA [address] [place], [place] 08/10/2024 11:00 AM EST Office Visit Adult Medicine [facility] [address] [place] [address] Garcia Jin PA [address] [place], [place] 08/16/2024 10:10 AM EST Office Visit Pulmonolgy - [place] [address] [phone] Rebecca Casey NP [address] [address] 08/17/2024 9:00 AM EST Appointment [facility] [address] [place] [phone] Scheduled Orders Name Type Priority Associated Diagnoses Orde r Schedule XR Esophagram Imaging Routine Weight loss Decreased appetite History of myocardial infarct at age greater than [address] of the abdomen Expected: 05/29/2024, Expires: 05/29/2025 XR Speech Evaluation w Cine/Video Imaging Routine Weight loss Decreased appetite History of myocardial infarct at age greater than [address] of the abdomen Expected: 05/29/2024, Expires: 05/29/2025 documented as of this encounter Visit Diagnoses Diagnosis Weight loss- Primary Loss of weight Decreased appetite Anorexia History of myocardial infarct at age greater than [address] of the abdomen Nonspecific (abnormal) findings on radiological and other examination of abdominal area, including retroperitoneum documented in this encounter Care Teams Carpet Journeyman Relationship Specialty Start Date End Date Miguel Chowdary MD [address] [place] [id number] PCP - General Internal Medicine 01/24/19 documented as of this encounter
--- OUTSIDE RECORDS SUMMARY | 2024-08-02 13:25 | XMS_ITS | Encounter Summary ---
Author Organization [facility] Address [address] [place] [address] Care Team Providers Care Machine Sander Name Role Phone Miguel Chowdary MD Primary Care Provider [phone] Encounter Details Date Type Department Care Team (Late st Contact Info) Description 12/08/2019 Scanned Document [facility] [place] [address] [place] [phone] Rm Francois MD [address] [facility] [address] [place] [address] Social History Tobacco Use Types Packs/Day Years Used Date Smoking Tobacco: Never Smokeless Tobacco: Never Alcohol Use Standard Drinks/Week Comments Never 0 (1 standard drink = 0.6 oz pur e alcohol) AUDIT-C Answer Date Recorded Frequency of Alcohol Consumption Never 10/16/2019 Average Number of Drinks Not on file 020 Frequency of Binge Drinking Not on file 10/03 Sex and Gender Information Value Date Recorded Sex Assigned at Not on file Gender Identity Not on file Sexual Orientation Not on file COVID-19 Exposure Response Date Recorded In the last month, have you been in contact with someone who was confirmed or suspected to have Coronavirus / COVID-19? No / Unsure 12/08/2019 8:48 AM EDT documented as of this encounter Plan of Treatment Not on file documented as of this encounter Visit Diagnoses Not on filedocumented in this encounter Care Teams Machine Sander Relationship Specialty Start Date End Date Miguel Chowdary MD [address] [place] [id number] PCP - General 09/28/19 documented as of this encounter
--- OUTSIDE RECORDS SUMMARY | 2024-08-02 13:25 | XMS_ITS | Encounter Summary ---
Author Organization [facility] Address [address] [place] [address] Care Team Providers Care Nursing Home Assistant Administrator Name Role Phone Miguel Chowdary MD Primary Care Provider [phone] Reason for Referral * Consultation (Routine) - Authorized Specialty Diagnoses / Procedures Referred By Contac t Referred To Contact Orthopaedics / Orthopedic Diagnoses Knee pain, unspecified chronicity, unspecified laterality Miguel Chowdary MD [address] [place] [address] Lokesh Floyd PA [address] [place] [id number] Referral ID Status Reason Start Date Expiration Date Visits Requested Visits Authorized [id number] Authorized Specialty Services Required 07/03/2025 1 1 Reason for Visit * Reason Onset Date Comments Knee Pain 07/03/2024 Encounter Details Date Type Department Care Team (Late st Contact Info) Description 07/03/2024 Telephone Adult Medicine [address] [address] Miguel Chowdary MD [address] [place] [address] [phone] Knee Pain Social History Tobacco Use Types Packs/Day Years [...] got money to buy more. Patient declined Within the past 12 months th e food we bought just didn't last and we didn't have money to get more. Patient declined 06/04 Dependent Care Answer Date Recorded Do you need help finding or paying for care for your loved ones. For example, child welfare consultant or elderly care for an older adult? [...] on file documented as of this encounter Progress Notes * Mercedes Luevano RN - 07/03/2024 12:01 PM EST Pt is aware * Miguel Chowdary MD - 07/03/2024 11:58 AM EST Please call patient and , I have referred patient to orthopedic service. * Mercedes Luevano RN - 07/03/2024 11:45 AM EST Pt has pain in right knee , he has had this pain for several weeks, was seen last week and had an xray but after visit stepped down hard and had sudden onset of [pain in the knee and now has more pain when walking Pt has no chest pain or SOB, has not been ill and has not had any N/V/D or fever, he has no other new joint pains, both knees are painful, slight swelling at inner aspect of the patella , no redness,denies any redness or pain in calves, he has nl CSM, knees are not locking or giving out but he haspain with full weight bearing Pt and are asking what they can do with this new pain . He was told to use conservative therapy for 6 weeks but he has more pain today * Arlet Johnson - 07/03/2024 11:18 AM EST Patient was seen 06/29/[address] Chowdary for knee pain and was told to call if worsened. Patient states he was walking down some steps yesterday and felt something break loose. Says its very painful and heis having a hard time standing. documented in this encounter Plan of Treatment Upcoming Encounters Date Type Department Care Team (Late st Contact Info) Description 08/04/2024 2:00 PM EST Consult Orthopedics - [place] [id number] [place], [place] [phone] Lokesh Floyd PA [address] [place], [place] 08/10/2024 11:00 AM EST Office Visit Adult Medicine [place] [address] [place], [place] [phone] Garcia Jin PA 444 [place], [place] 08/16/2024 10:10 AM EST Office Visit Pulmonolgy [facility] [address] [phone] Rebecca Casey NP [address] [address] 08/17/2024 9:00 AM EST Appointment [facility] Xray [address] [place] [phone] Scheduled Referrals Name Type Priority Associated Diagnoses Orde r Schedule Ambulatory referral to Orthopedic Outpatient Referral Routine Knee pain, unspecified chronicity, unspecified laterality Expected: 07/10/2024, Expires: 07/03/2025 documented as of this encounter Visit Diagnoses Diagnosis Knee pain, unspecified chronicity, unspecified laterality- Primary documented in this encounter Additional Health Concerns Assessment Noted Time PHQ-9 Depression Total Score: 0 06/22/20 24 6:18 PM EST documented as of this encounter Care Teams Nursing Home Assistant Administrator Relationship Specialty Start Date End Date Miguel Chowdary MD [address] [place] [address] PCP - General Internal Medicine 01/24/19 documented as of this encounter
--- OUTSIDE RECORDS SUMMARY | 2024-08-02 13:25 | XMS_ITS | Encounter Summary ---
Author Organization [facility] Address [address] [place] [address] Care Team Providers Care Urology Nurse Name Role Phone Miguel Chowdary MD Primary Care Provider [phone] Encounter Details Date Type Department Care Team (Late st Contact Info) Description 12/08/2019 Scanned Document [facility] Heart [facility] V[facility] [place] [address] [place] [phone] mR Francois MD [address] [facility] [address] [place] [address] Social History Tobacco Use Types Packs/Day Years [...] on filedocumented in this encounter Care Teams Urology Nurse Relationship Specialty Start Date End Date Miguel Chowdary MD [address] [place] [address] PCP - General 09/28/19 documented as of this encounter
--- OUTSIDE RECORDS SUMMARY | 2024-08-02 13:25 | XMS_ITS | Encounter Summary ---
Author Organization [facility] Address [address] [place] [address] Care Team Providers Care Frankfurter Inspector Name Role Phone Miguel Chowdary MD Primary Care Provider [phone] Reason for Visit * Reason Onset Date Comments Treatmeant Plan pwk 07/19/2024 Encounter Details Date Type Department Care Team ([facility] Contact Info) Description 07/19/2024 Telephone Adult Medicine [address] [phone] Flavia Miller [place] Treatmeant Plan pwk Social History Tobacco Use Types Packs/Day Years [...] your doctor or pharmacy? Not on file 024 Financial Risk Answer Date Recorded How hard [...] for your loved ones. For example, child watch attendant or elderly care for an older adult? [...] as of this encounter Progress Notes * Flavia [place] - 07/19/2024 11:39 AM EST Treatment Plan put in DrY's office for signature documented in this encounter Plan of Treatment Upcoming Encounters Date Type Department Care Team (Late st Contact Info) Description 08/04/2024 2:00 PM EST Consult Orthopedics - [place] [address] [place] [address] Lokesh Floyd PA [address] [place] [address] 08/10/2024 11:00 AM EST Office Visit [place] [facility] [address] [place] [address] Garcia Jin PA [address] [place] [address] 08/16/2024 10:10 AM EST Office Visit Pulmonolgy - [place] [address] [phone] Rebecca Casey NP [address] [address] 08/17/2024 9:00 AM EST Appointment [facility] Xray [address] [place] [phone] documented as of this encounter Visit Diagnoses Not on filedocumented in this encounter Additional Health Concerns Assessment Noted Time PHQ-9 Depression Total Score: 0 06/22/20 24 6:18 PM EST documented as of this encounter Care Teams Frankfurter Inspector Relationship Specialty Start Date End Date Miguel Chowdary MD [address] [place] [address] PCP - General Internal Medicine 01/24/19 documented as of this encounter
--- OUTSIDE RECORDS SUMMARY | 2024-08-02 13:25 | XMS_ITS | Encounter Summary ---
Author Organization [facility] Address [address] [place] [address] Care Team Providers Care Display Associate Name Role Phone Miguel Chowdary MD Primary Care Provider [phone] Encounter Details Date Type Department Care Team (Late st Contact Info) Description 11/22/2019 Scanned Document [facility] Heart & Vascular [place] [address] [place] [phone] Rm Francois MD [facility] [address] [place] [address] Social History Tobacco Use Types Packs/Day Years [...] have Coronavirus / COVID-19? No / Unsure 11/14/2019 11:40 AM EDT documented as of this encounter Plan of Treatment Not on file documented as of this encounter Visit Diagnoses Not on filedocumented in this encounter Care Teams Display Associate Relationship Specialty Start Date End Date Miguel Chowdary MD [address] [place] [address] PCP - General 09/28/19 documented as of this encounter
--- OUTSIDE RECORDS SUMMARY | 2024-08-02 13:25 | XMS_ITS | Encounter Summary ---
Author Organization [facility] Address [address] [place] [address] Care Team Providers Care Padder Cushion Name Role Phone Miguel Chowdary MD Primary Care Provider [phone] Encounter Details Date Type Department Care Team (Late st Contact Info) Description 12/08/2019 Scanned Document [facility] Heart & Vascular [place] [address] [place] [phone] Rm Francois MD [facility] [address] [place] [address] Social History Tobacco Use Types Packs/Day Years [...] on filedocumented in this encounter Care Teams Padder Cushion Relationship Specialty Start Date End Date Miguel Chowdary MD [address] [place] [address] PCP - General 09/28/19 documented as of this encounter
--- OUTSIDE RECORDS SUMMARY | 2024-08-02 13:25 | XMS_ITS | Encounter Summary ---
Author Organization [facility] Address [address] [place] [address] Care Team Providers Care Chief Of Anesthesiology Name Role Phone Miguel Chowdary MD Primary Care Provider [phone] Encounter Details Date Type Department Care Team (Late st Contact Info) Description 01/01/2020 Scanned Document [facility] Heart & Vascular [place] [address] [place] [phone] Rm Francois MD [facility] [address] [place] [address] Social History Tobacco Use Types Packs/Day Years [...] have Coronavirus / COVID-19? No / Unsure 12/18/2019 9:05 AM EDT documented as of this encounter Plan of Treatment Not on file documented as of this encounter Visit Diagnoses Not on filedocumented in this encounter Care Teams Chief Of Anesthesiology Relationship Specialty Start Date End Date Miguel Chowdary MD [address] [place] [address] PCP - General 09/28/19 documented as of this encounter
--- OUTSIDE RECORDS SUMMARY | 2024-08-02 13:25 | XMS_ITS | Encounter Summary ---
Author Organization [facility] Address [address] [place] [address] Care Team Providers Care Consumer Loan Officer Name Role Phone Miguel Chowdary MD Primary Care Provider [phone] Reason for Referral * Imaging (Routine) - Closed Specialty Diagnoses / Procedures Referred By Suzy posada Referred To Contact Radiology Diagnoses Allergic rhinitis, unspecified seasonality, unspecified trigger Procedures CT Chest wo Contrast Rebecca Casey NP [address] [address] [facility] [address] Scan [address] [place], [place] Referral ID Status Reason Start Date Expiration Date Visits Re quested Visits Authorized [id number] Closed 05/15/2024 05/15/2025 1 1 Reason for Visit * Imaging (Routine) - Closed Specialty Diagnoses / Procedures Referred By Suzy posada Referred To Contact Radiology Diagnoses Allergic rhinitis, unspecified seasonality, unspecified trigger Procedures CT Chest wo Contrast Rebecca Casey NP [address] Scan [address] [place], [place] Referral ID Status Reason Start Date Expiration Date Visits Re quested Visits Authorized [id number] Closed 05/15/2024 05/15/2025 1 1 Encounter Details Date Type Department Care Team (Latest Contact Info) Description 2024 10:42 AM EST - 2024 11:59 PM [facility] Hospital Encounter [place] [address] Allergic rhinitis, unspecified seasonality, unspecified trigger Discharge Disposition: Home or Self Care Social History Tobacco Use Types Packs/Day Years [...] care for your loved ones. For example, housekeeper child care or elderly care for an older adult? [...] on file documented as of this encounter Medications at Time of Discharge Medication Sig Dispensed Refills Start Date End Date aspirin 81 mg EC tablet Take 1 tablet (81 mg total) by mouth 1 (one) time each day. 12/21/2019 carbidopa-levodopa (Rytary) 23.75-95 mg per XR capsule Take by mouth at bedtime. carbidopa-levodopa (SINEMET) 25-100 mg per tablet Take 1 Tablet by mouth 4 times daily. citalopram (CeleXA) 10 mg tablet Take 1 tablet (10 mg total) by mouth 1 (one) time each day. 06/17/2022 clonazePAM (KlonoPIN) 0.5 mg tablet TAKE 1 TABLET BY MOUTH DAILY AT BEDTIME. ADMINISTER 30 MINUTES BEFORE BEDTIME 06/18/2022 evolocumab (Repatha Syringe) 140 mg/mL syringe Inject 140 mg into the skin. Every 14 days polyethylene glycol (MIRALAX) 17 gram packet Take 17 g by mouth daily. documented as of this encounter Discharge Disposition Disposition Code Departure Means Destination Home or Self Care documented in this encounter Plan of Treatment Upcoming Encounters Date Type Department Care Team (Late st Contact Info) Description 08/04/2024 2:00 PM EST Consult Orthopedics - [place] [address] [place] [address] Lokesh Floyd PA [address] [place] [address] 08/10/2024 11:00 AM EST Office Visit Adult Medicine [facility] [address] [place] [address] Garcia Jin PA 444 [place] [address] 08/16/2024 10:10 AM EST Office Visit Pulmonolgy - [place] 175 [facility] [address] [place] [phone] Rebecca Casey, JORGE ALBERTO 175 [facility] 200 [place] [address] 08/17/2024 9:00 AM EST Appointment [facility] Xray [address] [place] [phone] documented as of this encounter Procedures Procedure Name Priority Date/Time Associated Diagnosis Comments CT CHEST WO CONTRAST Routine 2024 10:59 AM EST Allergic rhinitis, unspecified seasonality, unspecified trigger documented in this encounter Results * CT Chest wo Contrast (2024 10:59 AM EST) Anatomical Region Laterality Modality Body Computed Tomogra phy 2024 11:1 6 AM EST Impressions 2024 1:38 PM EST 1. ??No acute changes. 2. ??Near complete resolution of previously seen focal abnormality in the posterior aspect of the right upper lobe, reflecting improvement of the inflammatory/infectious process. 3. ??Few small pulmonary nodules measuring up to 0.3 cm appears unchanged from April 2024. -------- FINAL REPORT -------- Dictated By: Collin Carbajal Dictated Date: 2024 11:16 ET Assigned Physician: Collin Carbajal Reviewed and Electronically Signed By: Collin Carbajal Signed Date: 2024 13:38 ET Workstation ID: [id number] Transcribed By: Self Edit Transcribed Date: 2024 13:26 ET Narrative 2024 1:[address] CHEST WO CONTRAST TECHNIQUE: Multidetector CT of the chest was performed without intravenous contrast. COMPARISON: Chest CT on April 14, 2024 HISTORY: Cough, persistent Lung nodule, < 6mm, high cancer risk suspious nodules FINDINGS: Lungs: Central airways are clear. Near complete resolution of previously seen cluster of nodules surrounded by groundglass opacity in the posterior aspect of the right lower lobe pleural (2:120). No confluent consolidation or mass. ??Respiratory motion partially limits evaluation for small pulmonary nodules. ??A few small pulmonary nodules measuring 0.3 cm in the right middle lobe abutting the minor fissure (2:192) and in the left lower lobe abutting the fissure (2:236) appears unchanged from previous examination from April 2024. Pleura: No pleural effusion or pneumothorax. Mediastinum: No thyroid nodules. ??Heart is normal in size. No pericardial effusion. ??Moderate coronary artery calcifications. ??Thoracic aorta is normal in caliber. ??Unchanged small amount of soft tissue density in the prevascular space, which probably represents thymic hyperplasia. Lymph Nodes: No bulky lymphadenopathy. Upper Abdomen: Unremarkable. Chest Wall: Unremarkable. Bones: Degenerative changes along the spine. ??No suspicious bone lesions. Procedure Note Collin Carbajal MD - 2024 CT CHEST WO CONTRAST TECHNIQUE: Multidetector CT of the chest was performed without intravenouscontrast. COMPARISON: Chest CT on April 14, 2024 HISTORY: Cough, persistent Lung nodule, < 6mm, high cancer risk suspious nodules FINDINGS: Lungs: Central airways are clear. Near complete resolution of previouslyseen cluster of nodules surrounded by groundglass opacity in the posterioraspect of the right lower lobe pleural (2:120). No confluent consolidationor mass. Respiratory motion partially limits evaluation for smallpulmonary nodules. A few small pulmonary nodules measuring 0.3 cm in theright middle lobe abutting the minor fissure (2:192) and in the left lowerlobe abutting the fissure (2:236) appears unchanged from previousexamination from April 2024. Pleura: No pleural effusion or pneumothorax. Mediastinum: No thyroid nodules. Heart is normal in size. No pericardialeffusion. Moderate coronary artery calcifications. Thoracic aorta isnormal in caliber. Unchanged small amount of soft tissue density in theprevascular space, which probably represents thymic hyperplasia. Lymph Nodes: No bulky lymphadenopathy. Upper Abdomen: Unremarkable. Chest Wall: Unremarkable. Bones: Degenerative changes along the spine. No suspicious bonelesions. IMPRESSION: 1. No acute changes. 2. Near complete resolution of previously seen focal abnormality in theposterior aspect of the right upper lobe, reflecting improvement of theinflammatory/infectious process. 3. Few small pulmonary nodules measuring up to 0.3 cm appears unchangedfrom April 2024. -------- FINAL REPORT -------- Dictated By: Collin Carbajal Dictated Date: 2024 11:16 ET Assigned Physician: Collin Carbajal Reviewed and Electronically Signed By: Collin Carbajal Signed Date: 2024 13:38 ET Workstation ID: [id number] Transcribed By: Self Edit Transcribed Date: 2024 13:26 ET Rebecca Floresdriss HOT STONE SETTER IMG CT PROCEDUR ES documented in this encounter Visit Diagnoses Diagnosis Allergic rhinitis, unspecified seasonality, unspecified trigger documented in this encounter Additional Health Concerns Assessment Noted Time PHQ-9 Depression Total Score: 0 06/22/20 24 6:18 PM EST documented as of this encounter Care Teams Consumer Loan Officer Relationship Specialty Start Date End Date Miguel Chowdary MD [address] [place] [address] PCP - General Internal Medicine 01/24/19 documented as of this encounter
--- OUTSIDE RECORDS SUMMARY | 2024-08-02 13:25 | XMS_ITS | Encounter Summary ---
Author Organization [facility] Address [address] [place] [address] Care Team Providers Care Supervisor Assembly And Packing Name Role Phone Miguel Chowdary MD Primary Care Provider [phone] Encounter Details Date Type Department Care Team (Late st Contact Info) Description 01/01/2020 Scanned Document [facility] Heart & Vascular [place] [address] [place] [phone] Rm Francois MD [facility] [address] [place] [address] Social History Tobacco Use Types Packs/Day Years [...] on filedocumented in this encounter Care Teams Supervisor Assembly And Packing Relationship Specialty Start Date End Date Miguel Chowdary MD [address] [place] [address] PCP - General 09/28/19 documented as of this encounter
--- OUTSIDE RECORDS SUMMARY | 2024-08-02 13:26 | XMS_ITS | Encounter Summary ---
Author Organization [facility] Address [address] [place] [address] Care Team Providers Care Weekend Receptionist Name Role Phone Miguel Chowdary MD Primary Care Provider [phone] Encounter Details Date Type Department Care Team (Late st Contact Info) Description 11/13/2019 Telephone [facility] Heart & Vascular [place] [address] [place] [phone] Rm Francois MD [address] [place] [address] [place] [address] Social History Tobacco Use Types Packs/Day Years [...] AM EDT documented as of this encounter Miscellaneous Notes * Telephone Encounter - Mar Gibbs - 11/13/2019 10:10 AM EDT Hi , This patient and his called again today and said they would like a call from you serafin.They mentioned that it's not just for results from stress test but they have other concerns they wanted to talk to you about. In regards to his nuclear stress test records: I called and spoke to Kenyetta from [facility] and contacted Mar Waite about getting the records and they are working on it! Patient callback # is his 's cell phone # [phone]. Thank you . documented in this encounter Plan of Treatment Not on file documented as of this encounter Visit Diagnoses Not on filedocumented in this encounter Care Teams Weekend Receptionist Relationship Specialty Start Date End Date Miguel Chowdary MD [address] [place] [address] PCP - General 09/28/19 documented as of this encounter
--- OUTSIDE RECORDS SUMMARY | 2024-08-02 13:26 | XMS_ITS | Encounter Summary ---
Author Organization [facility] Address [address] [place] [address] Care Team Providers Care Wind Science And Planning Name Role Phone Miguel Chowdary MD Primary Care Provider [phone] Reason for Visit * Reason Comments Results Request Encounter Details Date Type Department Care Team ([facility] st Contact Info) Description 11/10/2019 Telephone [facility] Heart & Vascular [address] [phone] Rm Francois MD 300 [facility] 262 [place] [address] Results Request Social History Tobacco Use Types Packs/Day Years [...] on file Sexual Orientation Not on file documented as of this encounter Miscellaneous Notes * Telephone Encounter - Mar Gibbs - 11/10/2019 9:11 AM EDT PT called and would like a call back with results from his stress test taken on November 06. He said hewas superposed to return to work on Wednesday the and just wanted to get an update and he also has other questions he would like to ask. PLS call [phone] when you have a chance, thank you documented in this encounter Plan of Treatment Not on file documented as of this encounter Visit Diagnoses Not on filedocumented in this encounter Care Teams Wind Science And Planning Relationship Specialty Start Date End Date Miguel Chowdary MD [address] [place] [address] PCP - General 09/28/19 documented as of this encounter
--- OUTSIDE RECORDS SUMMARY | 2024-08-02 13:26 | XMS_ITS | Clinical Summary ---
Author Organization 175 [facility] Address [address] [place] [address] Phone Care Team Providers Care Receiver/Laborer Name Role Phone Miguel Chowdary MD Primary Care Provider [phone] Allergies Active Allergy Reactions Criticality Noted Date Comments Bee Venom Protein (Honey Bee) Swelling 2010 Medications Medication Sig Dispensed Refills Start Date End Date Status aspirin 81 mg EC tablet Take 1 tablet (81 mg total) by mouth 1 (one) time each day. 12/21/2019 Active carbidopa-levodopa (SINEMET) 25-100 mg per tablet Take 1 Tablet by mouth 4 times daily. Active carbidopa-levodopa (Rytary) 23.75-95 mg per XR capsule Take by mouth at bedtime. Active citalopram (CeleXA) 10 mg tablet Take 1 tablet (10 mg total) by mouth 1 (one) time each day. 06/17/2022 Active clonazePAM (KlonoPIN) 0.5 mg tablet TAKE 1 TABLET BY MOUTH DAILY AT BEDTIME. ADMINISTER 30 MINUTES BEFORE BEDTIME 06/18/2022 Active evolocumab (Repatha Syringe) 140 mg/mL syringe Inject 140 mg into the skin. Every 14 days Active polyethylene glycol (MIRALAX) 17 gram packet Take 17 g by mouth daily. Active Active Problems Problem Noted Date Diagnosed Date Abnormal TSH 06/29/2024 Spinal stenosis of lumbar region with radiculopa thy 05/16/2024 Assessment & Plan (05/16/2024 10:56 AM EST): I reviewed the imaging findings in detail with Mr. Taylor and his using a spine model. He has underlying central stenosis at L4-5 which is taken years to develop but I believe it was the small left sided disc herniation that created the more acute symptoms. We discussed how the awkward forward region bending may have contributed to this and that he should employ good body mechanics with his activities going forward. At this point, his pain is manageable, he has no weakness or incontinence and feels he is nearly at his baseline. We need not consider surgery at this juncture but he is certainly welcome to contact us if anything recurs in the future. At that point, I would obtain lumbar spine flexion-extension x-rays to look for instability at L4-5 if we are considering surgery then. Chronic heart failure with p reserved ejection fraction (HFpEF) 10/08/2023 Anxiety 12/21/2022 Parkinson disease 12/21/2022 Overview (04/19/2024): Somewhat complex picture with multiple components including anxiety, REM phase sleep disorder, please see consultation note by neurology, Dr. Ahumada, 11/13/22 Primary insomnia 12/21/2022 Primary hypertension 02/13/2022 STEMI involving right coronary artery 02/13/2022 Bilateral carotid artery stenosis 05/20/2021 Diverticulosis 04/05/2020 Overview (04/19/2024): Incidental finding 2006 CN- Repeat 10 yrs Ischemic cardiomyopathy 04/05/2020 Overview (04/19/2024): 09/2019 EF 45-55% Mixed hyperlipidemia 04/05/2020 Peyronie's disease 04/05/2020 Coronary artery disease invo lving [place] coronary artery of [place] heart without angina pectoris 12/21/2019 Overview (04/19/2024): STEMI 09/2019 s/p stent to distal RCA BPH (benign prostatic hyperplasia) 08/31/2014 Nephrolithiasis 07/31/2008 Overview (04/19/2024): 2008; Dr. Taye Monsalve Allergic rhinitis 07/28/2005 Overview (04/19/2024): deviated septum seen by ENT & opted to forgo surgery Encounters Date Type Department Care Team Description 07/19/2024 Telephone Adult Medicine [address] [phone] Flavia Miller MA Treatmeant Plan pwk 2024 10:42 AM EST - 2024 11:59 PM EST Hospital Encounter CT Scan [address] [phone] Allergic rhinitis, unspecified seasonality, unspecified trigger Discharge Disposition: Home or Self Care 07/03/2024 Telephone Adult Medicine [address] [phone] Miguel Chowdary MD Knee Pain 06/29/2024 8:45 AM EST Office Visit Adult [address] [phone] Miguel Chowdary MD Right knee pain, unspecified chronicity (Primary Dx); Anxiety; Coronary artery disease involving [place] coronary artery of [place] heart without angina pectoris; Parkinson's disease, unspecified whether dyskinesia present, unspecified whether manifestations fluctuate (CMS/[facility]); Abnormal TSH 06/08/2024 3:47 PM EST Anesthesia Event [facility] [address] [place] [phone] Kalia Iqbal MD 06/08/2024 1:33 PM EST - 06/08/2024 11:59 PM EST Hospital Encounter [facility] [address] [place] [phone] Tatiana Kauffman MD Steele, Matthew G, CRNA Piela, Robert C, MD Dysphagia; Weight loss Discharge Disposition: Home or Self Care 05/29/2024 10:20 AM EST Office Visit Gastroenterology [facility] [address] [phone] Sukhdeep Schneider PA Weight loss (Primary Dx); Decreased appetite; History of myocardial infarct at age greater than [address]; [address] of the abdomen 05/29/2024 Telephone Gastroenterology [facility] 175 [facility] [address] [phone] Sukhdeep Schneider PA Provider Call Back 05/29/2024 Telephone Gastroenterology - [place] 175 [facility] 175 [facility] [address] [place] [address] Sukhdeep Schneider PA 05/16/2024 9:30 AM EST Office Visit Neurosurgery [place] [facility] [place] 175 [facility] [address] [place] [address] Claudette San MD Spinal stenosis of lumbar region with radiculopathy (Primary Dx) 05/15/2024 2:20 PM EST Consult Pulmonolgy - [place] 175 [facility] [address] [place] [address] Rebecca Casey NP Pulmonary nodules (Primary Dx); Ground glass opacity present on imaging of lung; Unintentional weight loss; Allergic rhinitis, unspecified seasonality, unspecified trigger; Chronic cough; Choking due to food in larynx, sequela from Last 3 Months Immunizations Name Administration Dates Next Due Influenza Quadravalent, MDCK , 0.5ml, preservative free (Flucelvax) 6mo and older 04/21/2023,03/19/2020 Influenza trivalent, 0.5mL ( Fluad) 65yo and older 06/22/2022,07/21/2021 SCP Events SARS-CoV-2 COVID-19, mRNA, LNP-S, preservative free 07/15/2021,09/11/2020,08/22/2020 Pneumococcal conjugate 20 va lent (Prevnar 20, PCV 20) 2mo and older 01/20/2024 Tdap Tetanus diptheria acell ular pertussis (Boostrix; Adacel) 7yo and older 08/31/2014 Surgical History Surgery Date Site/Laterality Comments TONSILLECTOMY childhood PROCEDURE: HISTORICAL TONSILLECTOMY OTHER SURGICAL HISTORY PROCEDURE: TX REPAIR PRIMARY OPEN/PRQ RUPTURED ACHILLES TENDON ANGIOPLASTY 09/2019 PROCEDURE: HISTORICAL ANGIOPLASTY W/STENT; COMMENT: [facility]MA of mid RCA with Xience 3.5 x 18mm stent performed dy Dr. Francois @ [facility] COLONOSCOPY 08/11/2006 PROCEDURE: HISTORICAL COLONOSCOPY; COMMENT: Diverticulosis, Repeat 10 yrs CAROTID STENT HERNIA REPAIR CARDIAC SURGERY Medical History Medical History Date Comments Hyperlipidemia 04/05/2020 DX:Hyperlipidemi a Ischemic cardiomyopathy 04/05/2020 DX:Ische aislinn cardiomyopathy; COMMENT: 09/2019 EF 45-55% Nephrolithiasis 07/31/2008 DX:Nephrolithias is; COMMENT: 2008; Dr. Taye Monsalve Peyronie's disease 04/05/2020 DX:Peyronie's disease Allergic rhinitis 07/28/2005 DX:Allergic rh initis; COMMENT: deviated septum seen by ENT & opted to forgo surgery Diverticulosis 04/05/2020 DX:Diverticulosi s; COMMENT: Incidental finding 2006 CN- Repeat 10 yrs BPH (benign prostatic hyperplasia) 08/31/2014 DX:BPH (benign prostatic hyperplasia) CAD (coronary artery disease) 12/21/2019 DX :CAD (coronary artery disease); COMMENT: STEMI 09/2019 s/p stent to distal RCA History of actinic keratoses 04/25/2020 DX: History of actinic keratoses; COMMENT: Actinic keratoses History of actinic keratoses 04/25/2020 DX: History of actinic keratoses Myocardial infarction (CMS/HCC) CHF (congestive heart failure) (CMS/HCC) Parkinson's disease (CMS/HCC) 20 20 Family History Medical History Relation Name Comments Coronary artery disease Father Coronary artery disease Mother Relation Name Status Comments Father Mother Social History Tobacco Use Types Packs/Day Years Used Date Smoking Tobacco: Never Smokeless Tobacco: Never Tobacco Cessation:Counseling Given: Not Answered Alcohol Use Standard Drinks/Week Comments Not Currently [...] care for your loved ones. For example, early childhood associate or elderly care for an older adult? [...] file Not on file Not on file Obstetrics History Last Filed Vital Signs Vital Sign Reading Time Taken Comments Blood Pressure 92/58 06/29/2024 8:44 AM EST Pulse 68 06/29/2024 8:44 AM EST Temperature 36 ??C (96.8 ??F) 06/29/2024 8:44 AM EST Respiratory Rate 10 06/29/2024 8:44 AM EST Oxygen Saturation 99% 06/08/2024 4:23 PM EST Inhaled Oxygen Concentration - - Weight 68 kg (150 lb) 06/29/2024 8:44 AM EST Height 175.3 cm (5' 9 ) 06/29/2024 8:44 AM EST Body Mass Index 22.15 06/29/2024 8:44 AM EST Plan of Treatment Upcoming Encounters Date Type Department Care Team (Late st Contact Info) Description 08/04/2024 2:00 PM EST Consult Orthopedics [facility] [address] [place], [place] [phone] Lokesh Floyd PA [address] [place] 08/10/2024 11:00 AM EST Office Visit [place] [facility] [place] [address] [place], [place] [phone] Garcia Jin PA [address] [place], [place] 08/16/2024 10:10 AM EST Office Visit Pulmonolgy - [place] [address] [phone] Rebecca Casey NP [address] [address] 08/17/2024 9:00 AM EST Appointment [facility] [address] [place] [phone] Health Maintenance Due Date Last Done Comments Zoster Vaccines (1 of 2) 2005 RSV Immunization Patients 60+ Years Old (1 - Risk 60-74 years 1-dose series) 2015 Medicare Annual Wellness Visit 12/22/2023 12/21/2022 COVID-19 Vaccine ( season) 2024 07/15/2021, 09/11/2020, 08/22/2020 Influenza Vaccine (#1) 2024 , 06/22/2022, 07/21/2021, Additional history exists DTaP,Tdap,and Td Vaccines (2 - Td or Tdap) 08/31/2024 08/31/2014 Hypertension/CHF/CAD Annual BMP Blood Test 04/04/2025 04/04/2024, 04/04/2024, 01/20/2024, Additional history exists Depression Screening 06/22/2025 06/22/2024 Social Influencers of Health Screening 06/22/2025 06/22/2024 Falls Risk Assessment 06/29/2025 06/29/2024 , 06/08/2024, 01/20/2024 Colorectal Cancer Screening: Colonoscopy 10/29/2026 10/29/2021 Cholesterol Screening (Lipid Panel) 01/19/2029 01/20/2024, 01/20/2024 Hepatitis C Screening Completed 04/05/2020 Pneumococcal Vaccine: 65+ Years Completed 01/20/2024 HIB Vaccines Aged Out No longer eligi ble based on patient's age to complete this topic HPV Vaccines Aged Out No longer eligi ble based on patient's age to complete this topic Hepatitis A Vaccines Aged Out No long er eligible based on patient's age to complete this topic Hepatitis B Vaccines Aged Out No long er eligible based on patient's age to complete this topic IPV Vaccines Aged Out No longer eligi ble based on patient's age to complete this topic MMR Vaccines Aged Out No longer eligi ble based on patient's age to complete this topic Meningococcal ACWY Vaccine Aged Out N o longer eligible based on patient's age to complete this topic RSV Immunization Patients Under 20 months Aged Out No longer eligible based on patient's age to complete this topic Varicella Vaccines Aged Out No longer eligible based on patient's age to complete this topic Procedures Procedure Name Priority Date/Time Associated Diagnosis Comments CT CHEST WO CONTRAST Routine 2024 10:59 AM EST Allergic rhinitis, unspecified seasonality, unspecified trigger EGD Routine 06/08/2024 4:02 PM EST Dysphagia Weight loss TISSUE EXAM Routine 06/08/2024 3:53 PM EST Dysphagia Weight loss ANNUAL BMP BLOOD TEST Routine 04/04/2024 FALLS RISK ASSESSMENT Routine 01/20/2024 LIPID PANEL Routine 01/20/2024 COLONOSCOPY Routine 10/29/2021 HEPATITIS C SCREENING Routine 04/05/2020 from Last 3 Months or Most Recently Relevant to Health Maintenance Results * CT Chest wo Contrast (2024 [...] Signed Date: 2024 13:38 ET Workstation ID: [id number] Transcribed By: Self Edit Transcribed Date: 2024 [...] Signed Date: 2024 13:38 ET Workstation ID: [id number] Transcribed By: Self Edit Transcribed Date: 2024 13:26 ET Rebecca Carmela SUPERVISOR SPECIAL EDUCATION IMG CT PROCEDUR ES * EGD Anesthesia - MAC; [facility] ENDOSCOPY (06/08/2024 4:02 PM EST) Anatomical Region Laterality Modality Endoscopy 06/08/2024 3:47 PM EST Impressions 06/08/2024 4:05 PM EST - Normal examined duodenum. ? - Gastritis. Biopsied. ? - Benign-appearing esophageal stenosis. Dilated. Recommendation: ?- Discharge patient to home. ? - Await pathology results. ? - Follow an antireflux regimen. ? - Use a proton pump inhibitor PO daily. Narrative 06/08/2024 4:05 PM EST [facility] Patient Name: Kalia Taylor Procedure Date: 06/08/2024 3:47 PM Date of : 1955 Age: 68 Gender: Male Note Status: Finalized Attending MD: Tatiana Kauffman MD, Procedure Date No Time: 06/08/2024 Procedure: ? Upper GI endoscopy Indications: ? Dysphagia, Upper abdominal symptoms associated with ? anorexia (suggesting structural disease), Upper ? abdominal symptoms associated with weight loss ? (suggesting structural disease) Providers: ? Tatiana Kauffman MD Referring MD: ?Tatiana Kauffman MD Medicines: ? Monitored Anesthesia Care Complications: ? No immediate complications. Estimated blood loss: ? Minimal. Estimated Blood Loss: ? Estimated blood loss was minimal. Procedure: ? Pre-Anesthesia Assessment: ? - Prior to the procedure, a History and Physical was ? performed, and patient medications and allergies were ? reviewed. The patient is competent. The risks and ? benefits of the procedure and the sedation options and ? risks were discussed with the patient. All questions ? were answered and informed consent was obtained. ? Patient identification and proposed procedure were ? verified by the physician, the nurse, the weight recorder ? and the sterile technician in the pre-procedure area in the ? endoscopy suite. Mental Status Examination: alert and ? oriented. Airway Examination: normal oropharyngeal ? airway and neck mobility. Respiratory Examination: ? clear to auscultation. CV Examination: normal. ? Prophylactic Antibiotics: The patient does not require ? prophylactic antibiotics. Prior Anticoagulants: The ? patient has taken no anticoagulant or antiplatelet ? agents. ASA Grade Assessment: III - A patient with ? severe systemic disease. After reviewing the risks and ? benefits, the patient was deemed in satisfactory ? condition to undergo the procedure. The anesthesia ? plan was to use monitored anesthesia care (MAC). ? Immediately prior to administration of medications, ? the patient was re-assessed for adequacy to receive ? sedatives. The heart rate, respiratory rate, oxygen ? saturations, blood pressure, adequacy of pulmonary ? ventilation, and response to care were monitored ? throughout the procedure. The physical status of the ? patient was re-assessed after the procedure. ? After obtaining informed consent, the endoscope was ? passed under direct vision. Throughout the procedure, ? the patient's blood pressure, pulse, and oxygen ? saturations were monitored continuously. The Olympus ? Gastroscope was introduced through the mouth, and ? advanced to the second part of duodenum. The upper GI ? endoscopy was accomplished without difficulty. The ? patient tolerated the procedure well. Findings: ?The examined duodenum was normal. ? Segmental moderate inflammation characterized by ? congestion (edema) and erythema was found in the ? gastric body and in the gastric antrum. Biopsies were ? taken with a cold forceps for histology. Estimated ? blood loss was minimal. ? One benign-appearing, intrinsic moderate ? (circumferential scarring or stenosis; an endoscope ? may pass) stenosis was found in the lower third of the ? esophagus. This stenosis measured 1.6 cm (inner ? diameter) x less than one cm (in length). The stenosis ? was traversed. A guidewire was placed and the scope ? was withdrawn. Dilation was performed with a Savary ? dilator with mild resistance at 17 mm, 18 mm, 19 mm ? and 20 mm. ? No other significant abnormalities were identified in ? a careful examination of the esophagus. Procedure Code(s): ? --- Professional --- ? 74351, Esophagogastroduodenoscopy, flexible, ? transoral; with insertion of guide wire followed by ? passage of dilator(s) through esophagus over guide wire ? 87137, 59, Esophagogastroduodenoscopy, flexible, ? transoral; with biopsy, single or multiple Diagnosis Code(s): ? --- Professional --- ? K29.70, Gastritis, unspecified, without bleeding ? K22.2, Esophageal obstruction CPT copyright 2020 [employer]. All rights reserved. The codes documented in this report are preliminary and upon atg java developer review may be revised to meet current compliance requirements. Tatiana Kauffman MD 06/08/2024 4:05:00 PM This report has been signed electronically.Tatiana Kauffman MD Number of Addenda: 0 Note Initiated On: 06/08/2024 3:47 PM Scope In: Scope Out: ? Endoscopy Department at [facility] - [address] [place] [address], ? [place] [address] Procedure Note Tatiana Kauffman MD - 06/08/2024 [facility] GI Patient Name: Kalia Taylor Procedure Date: 06/08/2024 3:47 PM Date of : 1955 Age: 68 Gender: Male Note Status: Finalized Attending MD: Tatiana Kauffman MD, Procedure Date No Time: 06/08/2024 Procedure: Upper GI endoscopy Indications: Dysphagia, Upper abdominal symptoms associated with anorexia (suggesting structural disease), Upper abdominal symptoms associated with weight loss (suggesting structural disease) Providers: Tatiana Kauffman MD Referring MD: Tatiana Kauffman MD Medicines: Monitored Anesthesia Care Complications: No immediate complications. Estimated blood loss: Minimal. Estimated Blood Loss: Estimated blood loss was minimal. Procedure: Pre-Anesthesia Assessment: - Prior to the procedure, a History and Physicalwas performed, and patient medications and allergieswere reviewed. The patient is competent. The risks and benefits of the procedure and the sedation optionsand risks were discussed with the patient. Allquestions were answered and informed consent was obtained. Patient identification and proposed procedure were verified by the physician, the nurse, theanesthetist and the sterile technician in the pre-procedure area in the endoscopy suite. Mental Status Examination: alertand oriented. Airway Examination: normal oropharyngeal airway and neck mobility. Respiratory Examination: clear to auscultation. CV Examination: normal. Prophylactic Antibiotics: The patient does notrequire prophylactic antibiotics. Prior Anticoagulants: The patient has taken no anticoagulant or antiplatelet agents. ASA Grade Assessment: III - A patient with severe systemic disease. After reviewing the risksand benefits, the patient was deemed in satisfactory condition to undergo the procedure. The anesthesia plan was to use monitored anesthesia care (MAC). Immediately prior to administration of medications, the patient was re-assessed for adequacy to receive sedatives. The heart rate, respiratory rate, oxygen saturations, blood pressure, adequacy of pulmonary ventilation, and response to care were monitored throughout the procedure. The physical status ofthe patient was re-assessed after the procedure. After obtaining informed consent, the endoscope was passed under direct vision. Throughout theprocedure, the patient's blood pressure, pulse, and oxygen saturations were monitored continuously. TheOlympus Gastroscope was introduced through the mouth, and advanced to the second part of duodenum. The upperGI endoscopy was accomplished without difficulty. The patient tolerated the procedure well. Findings: The examined duodenum was normal. Segmental moderate inflammation characterized by congestion (edema) and erythema was found in the gastric body and in the gastric antrum. Biopsieswere taken with a cold forceps for histology. Estimated blood loss was minimal. One benign-appearing, intrinsic moderate (circumferential scarring or stenosis; an endoscope may pass) stenosis was found in the lower third ofthe esophagus. This stenosis measured 1.6 cm (inner diameter) x less than one cm (in length). Thestenosis was traversed. A guidewire was placed and the scope was withdrawn. Dilation was performed with a Savary dilator with mild resistance at 17 mm, 18 mm, 19 mm and 20 mm. No other significant abnormalities were identifiedin a careful examination of the esophagus. Procedure Code(s): --- Professional --- 83730, Esophagogastroduodenoscopy, flexible, transoral; with insertion of guide wire followed by passage of dilator(s) through esophagus over guidewire 24813, 59, Esophagogastroduodenoscopy, flexible, transoral; with biopsy, single or multiple Diagnosis Code(s): --- Professional --- K29.70, Gastritis, unspecified, without bleeding K22.2, Esophageal obstruction CPT copyright 2020 [employer]. All rights reserved. The codes documented in this report are preliminary and upon atg java developer reviewmay be revised to meet current compliance requirements. Tatiana Kauffman MD 06/08/2024 4:05:00 PM This report has been signed electronically.Tatiana Kauffman MD Number of Addenda: 0 Note Initiated On: 06/08/2024 3:47 PM Scope In: Scope Out: Endoscopy Department at [facility] - [address] [place] [phone] IMPRESSION: - Normal examined duodenum. - Gastritis. Biopsied. - Benign-appearing esophageal stenosis. Dilated. Recommendation: - Discharge patient to home. - Await pathology results. - Follow an antireflux regimen. - Use a proton pump inhibitor PO daily. Tatiana Kauffman MD GI~PROCEDURE ORDERA BLES * Tissue exam (06/08/2024 3:53 PM EST) Final Diagnosis Gastric biopsy: Gastric mucosa with chronic gastritis and reactive changes. No Helicobacter pylori identified. No intestinal metaplasia, dysplasia, or neoplasia identified. Note: Routine sections show a population of plasmacytoid cells in the lamina propria, likely secondary to chronic gastritis. However, given the clinical finding of unintentional weight loss and thickening of the wall seen on CT, immunohistochemical stain for cytokeratin is performed to exclude occult carcinoma and is interpreted as negative with appropriate internal controls, supporting the above diagnosis. No Helicobacter is appreciated on routine stains. Because of gastritis, immunohistochemical stain for Helicobacter is performed and is interpreted as negative, supporting the above diagnosis. Controls stain appropriately. 12:35 PM EST [facility] Gross Description A. Stomach, gastric biopsy: Labeled stomach gastric . Received in formalin are four irregular carcamo mucosal tissue fragments, ranging from 0.1 cm to 0.5 cm in greatest dimension, which are wrapped in paper and submitted in toto in one cassette, four pieces, multiple levels on one slide. JACKI 12:35 PM EST [facility] Disclaimer NOTE: The immunohistochemical tests and in situ hybridization tests were developed and their performance characteristics were determined by [facility]. They have not been cleared or approved by the U.S. Food and Drug Administration. The FDA has determined that such clearance or approval is not necessary. These tests are used for clinical purposes. They should not be regarded as investigational or for research. This laboratory is certified under the Clinical Laboratory Improvement Amendments of 1988 (CLIA) as qualified to perform high complexity clinical laboratory testing. (controls appropriate) Unless otherwise specified, all tissue is 10% NB formalin fixed and paraffin embedded. 12:35 PM EST [facility] Tissue Stomach structure / Unknown 06/08/2024 3:53 PM EST 06/09/2024 4:52 AM EST Tatiana Kauffman MD LAB PATHOLOGY ORDER ALEX [facility] [address] [place] [address], * Annual BMP Blood Test (04/04/2024) [facility] Annual BMP Blood Test abstracted [facility] [place] Risk Assessment (01/20/2024) [facility] [place] Risk Assessment abstracted [facility] Provider [facility] Lipid panel (01/20/2024) [facility] LDL/HDL Ratio 2 0 - 4 Triglycerides 53 0 - 150 mg/dL Cholesterol 135 0 - 200 mg/dL HDL 72 40 mg/dL LDL Cholesterol 53 0 - 100 mg/dL Blood Venous blood specimen / Unknown Historical Provider LAB BLOOD ORDERAB LES * Colonoscopy (10/29/2021) [facility] Colonoscopy no interpreta tion,abstr acted Anatomical Region Laterality Modality Other [facility] Provider [facility] Hepatitis C Screening (04/05/2020) [facility] Hepatitis C Screening abstracted [facility] Provider MD WAGNER Luis from Last 3 Months or Most Recently Relevant to Health Maintenance Care Teams Receiver/Laborer Relationship Specialty Start Date End Date Miguel Chowdary MD [address] [place] [address] PCP - General Internal Medicine 01/24/19
--- OUTSIDE RECORDS SUMMARY | 2024-08-02 13:26 | XMS_ITS | Encounter Summary ---
Author Organization Formerly [facility] Address [address] [place] [address] Care Team Providers Care Pension Consultant Name Role Phone Miguel Chowdary MD Primary Care Provider [phone] Reason for Visit * Reason Comments Blood Pressure Check Encounter Details Date Type Department Care Team ([facility] st Contact Info) Description 10/20/2019 Telephone [facility] [place] [address] [phone] Rm Francois MD [address] [facility] [address] [place] [address] Blood Pressure Check Social History Tobacco Use Types Packs/Day Years [...] have Coronavirus / COVID-19? No / Unsure 09/28/2019 8:30 AM EDT documented as of this encounter Miscellaneous Notes * Telephone Encounter - Mar Gibbs - 10/20/2019 11:28 AM EDT Pt and his called again, 11:30 AM still concerned and would like to talk to GR. Gonzalez call back# is [phone]. Thank you , AM 10/20/2019 * Telephone Encounter - Mar Gibbs - 10/20/2019 9:18 AM EDT This patient had a televisit on 10/15. He said that upon his visit he was told to keep a record of his BP. He called with concern because his BP is dropping. Wednesday his reading was 102/62 and today BP is 87/53. A good callback # is [phone] thank you. AM 10/20/2019. documented in this encounter Plan of Treatment Not on file documented as of this encounter Visit Diagnoses Not on filedocumented in this encounter Care Teams Pension Consultant Relationship Specialty Start Date End Date Miguel Chowdary MD [address] [place] [id number] PCP - General 09/28/19 documented as of this encounter
--- OUTSIDE RECORDS SUMMARY | 2024-08-02 13:26 | XMS_ITS | Encounter Summary ---
Author Organization [facility] Address [address] [place] [address] Care Team Providers Care Sole Leveling Machine Operator Name Role Phone Miguel Chowdary MD Primary Care Provider [phone] Encounter Details Date Type Department Care Team (Late st Contact Info) Description 10/10/2019 Scanned Document [facility] EXTERNAL DATA DEPARTMENT Center[address] [address] Social History Tobacco Use Types Packs/Day Years Used Date Smoking Tobacco: Never Assessed Sex and Gender Information Value Date Recorded [...] on filedocumented in this encounter Care Teams Sole Leveling Machine Operator Relationship Specialty Start Date End Date Miguel Chowdary MD [address] [place] [id number] PCP - General 09/28/19 documented as of this encounter
--- OUTSIDE RECORDS SUMMARY | 2024-08-02 13:26 | XMS_ITS | Clinical Summary ---
Author Organization [facility] Address [address] [place] [address] Care Team Providers Care Inside Meter Tester Name Role Phone Miguel Chowdary MD Primary Care Provider [phone] Allergies No known active allergies Medications Medication Sig Dispensed Refills Start Date End Date Status nitroglycerin (NITROSTAT) 0.[address] 0.3 mg under the tongue every 5 (five) minutes as needed. 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 90 tablet 3 11/01/2019 Active metoPROLOL SUCCINATE (TOPROL-XL) 25 MG 24 hr tabletIndications:Isch emic cardiomyopathy Take 1 tablet (25 mg total) by mouth daily. 90 tablet 3 12/18/2019 Active Family History Medical History Relation Name Comments [...] on file Sexual Orientation Not on file Last Filed Vital Signs Vital Sign Reading Time Taken Comments Blood Pressure 100/60 12/18/2019 9:15 AM EDT Pulse 66 12/18/2019 9:15 AM EDT Temperature - - Respiratory Rate - - Oxygen Saturation 97% 12/18/2019 9:15 AM EDT Inhaled Oxygen Concentration - - Weight 74.1 kg (163 lb 6.4 oz) 12/18/2019 9:15 A M EDT Height - - Body Mass Index - - Plan of Treatment Health Maintenance Due Date Last Done Comments Hepatitis C Virus Screening 1955 DTaP/Tdap/Td Vaccines (1 - Tdap) 1974 Colonoscopy 2000 Pneumococcal Vaccines 50+ (1 of 1 - PCV) 2005 Zoster (Shingles) Vaccine (1 of 2) 2005 RSV Vaccine 60 years and old er and Patients (1 - Risk 60-74 years 1-dose series) 2015 Influenza Vaccine 02/03/2024 COVID-19 Vaccine (1 - 2023-2 5 season) 2024 Hepatitis B Vaccines Aged Out No long er eligible based on patient's age to complete this topic Care Teams Inside Meter Tester Relationship Specialty Start Date End Date Miguel Chowdary MD [address] [place] [phone] PCP - General 09/28/19
--- OUTSIDE RECORDS SUMMARY | 2024-08-02 13:26 | XMS_ITS | Encounter Summary ---
Author Organization [facility] Address [address] [place] [address] Care Team Providers Care Rn Burn Name Role Phone Miguel Chowdary MD Primary Care Provider [phone] Encounter Details Date Type Department Care Team (Late st Contact Info) Description 10/10/2019 Scanned Document [facility] EXTERNAL DATA DEPARTMENT Center[address] [address] Social History Tobacco Use Types Packs/Day Years [...] on filedocumented in this encounter Care Teams Rn Burn Relationship Specialty Start Date End Date Miguel Chowdary MD [address] [place] [phone] PCP - General 09/28/19 documented as of this encounter
--- OUTSIDE RECORDS SUMMARY | 2024-08-02 13:26 | XMS_ITS | Encounter Summary ---
Author Organization [facility] Address [address] [place] [address] Care Team Providers Care Program Admin Name Role Phone Miguel Chowdary MD Primary Care Provider [phone] Encounter Details Date Type Department Care Team (Late st Contact Info) Description 10/10/2019 Scanned Document [facility] EXTERNAL DATA DEPARTMENT Center[address] [address] Social History Tobacco Use Types Packs/Day Years [...] on filedocumented in this encounter Care Teams Program Admin Relationship Specialty Start Date End Date Miguel Chowdary MD [address] [place] [id number] PCP - General 09/28/19 documented as of this encounter
--- OUTSIDE RECORDS SUMMARY | 2024-08-02 13:26 | XMS_ITS | Clinical Summary ---
Author Organization [facility] Address [phone] [facility] [employer] [place] [address] Care Team Providers Care Panel Sewer Name Role Phone Miguel Chowdary MD Primary Care Provider [phone] Social History Tobacco Use Types Packs/Day Years Used Date Smoking Tobacco: Never Assessed Education Answer Date Recorded Are you interested in more education? Not on jfefrey e 10/30/2022 Are you concerned about learning? Not on file 10/30/2022 No 10/30/2022 No 10/30/2022 Digital Access Answer Date Recorded No 11/28/2022 No 11/28/2022 No 11/28/2022 Reliable internet access at home? Not on file 11/28/2022 Device with a working camera? Not on file Sex and Gender Information Value Date Recorded Sex Assigned at Not on file Gender Identity Not on file Sexual Orientation Not on file Last Filed Vital Signs Vital Sign Reading Time Taken Comments Blood Pressure 104/70 11/07/2019 3:23 PM EDT Pulse - - Temperature - - Respiratory Rate - - Oxygen Saturation 98% 11/07/2019 2:00 PM EDT Inhaled Oxygen Concentration - - Weight - - Height - - Body Mass Index - - Plan of Treatment Health Maintenance Due Date Last Done Comments LIPID PANEL 1955 DEPRESSION SCREENING 1967 SMOKING Hx and SMOKELESS TOBACCO SCREENING 1968 HEPATITIS B SCREENING 1973 HEPATITIS C SCREENING 1973 COLOGUARD 2000 COLONOSCOPY 2000 COLORECTAL CANCER SCREENING 2000 FIT TEST 2000 FOBT 2000 SIGMOIDOSCOPY 2000 VIRTUAL COLONOSCOPY 2000 PNEUMOCOCCAL VACCINES (50+ years) (1 of 1 - PCV) 2005 ZOSTER VACCINES (1 of 2) 2005 INFLUENZA VACCINE (#1) 2024 03/19/2020 COVID-19 VACCINE (3 - 2023-2 5 season) 2024 09/11/2020, 08/22/2020 Adult Td,Tdap Booster 08/31/2024 08/31/2014 RSV VACCINE (1 - 1-dose 75+ series) 2030 HEPATITIS A VACCINES Aged Out No long er eligible based on patient's age to complete this topic HEPATITIS B VACCINES Aged Out No long er eligible based on patient's age to complete this topic HIB VACCINES Aged Out No longer eligi ble based on patient's age to complete this topic MENINGOCOCCAL VACCINES (ACWY) Aged Out No longer eligible based on patient's age to complete this topic Medical Devices Not on file Insurance Payer Benefit Plan / Group Subscriber ID Effective Dates Phone Address [facility] [id number] [address] [address] [facility] Care Teams Panel Sewer Relationship Specialty Start Date End Date Miguel Chowdary MD [address] [place] [address] PCP - General Internal Medicine 10/26/19 Additional Source Comments The information contained in this document represents components of the legal health record. It is not the complete legal health record.[facility]
--- OUTSIDE RECORDS SUMMARY | 2024-08-02 13:26 | XMS_ITS | Encounter Summary ---
Author Organization [facility] Address [address] [place] [address] Care Team Providers Care Primary Substance Abuse Counselor Name Role Phone Miguel Chowdary MD Primary Care Provider [phone] Encounter Details Date Type Department Care Team (Late st Contact Info) Description 10/30/2019 Telephone [facility] [place] [address] [place] [phone] Rm Francois MD [address] [place] [address] Social History Tobacco Use Types Packs/Day Years [...] * Telephone Encounter - Mar Gibbs - 10/30/2019 11:20 AM EDT Patient said that he had partial disability to November 01 because Gr wanted pt to have stress test before pt returns back to work. However, the patient's stress test is not booked until November 07, 2019 @the [facility]. Pt needs an extended disability note for after the stress test until Gr reviews the testing. A good call back # is his cell phone = [phone] ([employer]) Thank you, Mar Gibbs documented in this encounter Plan of Treatment Not on file documented as of this encounter Visit Diagnoses Not on filedocumented in this encounter Care Teams Primary Substance Abuse Counselor Relationship Specialty Start Date End Date Miguel Chowdary MD [address] [place] [id number] PCP - General 09/28/19 documented as of this encounter
== END 2024-08-02 11:59 | disposition home or self-care (01) ==
PROVIDERS: PCP Internal Medicine; Visit Provider Psychiatry & Neurology Neurology
DX: G20.A1 Parkinson's disease without dyskinesia, without mention of fluctuations (principal); F41.9 Anxiety disorder, unspecified; G47.52 REM sleep behavior disorder; G47.33 Obstructive sleep apnea (adult) (pediatric)
CPT/HCPCS: 99214; G2211

== ENCOUNTER → 2024-08-02 11:08 | Outpatient (BNVA) | payer MEDICARE, SELFPAY | PROVIDERS: PCP Internal Medicine; Visit Provider Psychiatry & Neurology Neurology | DX: G20.A1 Parkinson's disease without dyskinesia, without mention of fluctuations (principal); F41.9 Anxiety disorder, unspecified; G47.52 REM sleep behavior disorder; G47.33 Obstructive sleep apnea (adult) (pediatric); R41.3 Other amnesia | CPT/HCPCS: 99212 ==

== ENCOUNTER 2024-11-22 10:01 | Outpatient (RCR) | payer MEDICARE, SELFPAY ==
--- NOTE | 2024-11-24 14:56 | MHC.SP.ADU ---
Referring provider: Beth Charles MD Reason for Referral: amenesia, Parkinson's Type of Treatment: 91339 Standardized Cognitive Performance Testing, per hour Date of Plan of Treatment: 11/22/22 Onset of Symptoms/Illness: 11/22/17 Date Treatment Started: 11/22/22 Medical Diagnosis: Parkinson's disease Primary Speech Language Diagnosis: G20 Parkinson?s disease Secondary Speech Language Diagnosis: R41.841 Cognitive communication disorder History Kalia is a 69 year old male referred to [facility] for an evaluation by Dr. Beth Charles for amnesia and Parkinson?s. Kalia was accompanied to the evaluation on 11/22/2024 by his wifeRobert was diagnoses with Parkinson?s disease approximately 5 years ago. The first noticeable changes were with fine motor tasks such as writing and tremor. Since then he has noticed changes in memory, voice, speech, and swallowing. 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 Sometimes when someone tells him something he will forget almost immediately. Kalia reports that it is ?it?s harder? to talk and went on to discuss processing time, production of sound, and volume of voice. He reports changes in voice such as others asking him to repeat himself, hoarse/rough/scratchy vocal quality, and decreased loudness. Reported related symptoms include difficulty swallowing, throat clearing, and excess phlegm. He believes he may have had a Videofluroscopic Swallowing Study (VFSS), also called Modified Barium Swallow Study (MBSS), done at [facility] earlier this year, however did not attend any follow-up speech therapy and it is unclear whether or not it was recommended. Medical History: Allergies Arthritis Cardiovascular Disease Heart Attack Neurological Conditions e.g.: Ward's, Parkinson's Sinusitis Voice Changes Other: anxiety/depression Respiratory Needs: Room Air Patient Orientation: Alert & Oriented x 4 Social History: Employment Status: Retired Highest level of education obtained: Completed High School/GED Current Living Situation: Lives with others in private residence Assistive Devices in use: Glasses/Contacts Past Speech Language Therapy: Unknown; Kalia may have had an instrumental swallow study earlier this year. Swallowing History: Dysphagia Specific: Risk of Aspiration Comments: Kalia reports concerns for swallowing including pills getting stuck and frequent coughing/throat clearing when eating. Pre-eval Risk for Aspiration: Neurological Condition Pre-evaluation Dietary Consistencies: Regular Pre-eval Liquid Intake: Thin Reported Speech, Language, Cognition difficulties: Understanding Attention Reading Memory Cognition Speaking Problem Solving Writing Voice Swallowing Assessment MOTOR SPEECH: Paucity of Slow Clinical Impression: Observations: Alternating motion rate (AMR) and sequential motion rate (SMR) were assessed. AMR is assessed by having the individual produce the following sounds as fast as possible in three separate tasks: /p/ (?puh?), /t/ (?tuh?), and /k/ (?kuh?). SMR is assessed by having the individual produce the three sounds together as fast as possible in one singular task: ?puh tuh kuh.? Overall, AMR productions were relatively consistent in a quick speed with appropriate coordination and articulation. In both AMR and SMR, the production of the /k/ sound was noticeably less articulate. Kalia?s production of SMR was slow and in the appropriate order, yet largely coordinated with the exception of /k/ being less intelligible. Overall, Kalia?s speech was perceptually judged to be 100% intelligible at the word level and approximately 98% intelligible in spontaneous speech at the conversation level. VOICE: Informal Voice Assessment: Voice Loudness: Mildly Soft/Quiet Voice Phonatory-based Quality: Tremor Voice Pitch: Limited Variation Clinical Impression: Observations: Kalia?s observed vocal quality as well as his perception of his voice was analyzed during today?s evaluation through measures including patient interview, questionnaires, conversation samples, and vocal exercises. Voice-Related Quality of Life (V-RQOL) Measure The V-RQOL is a questionnaire completed by an individual to analyze their outlook on their voice problem as it relates to their daily activities and overall quality of life. There are ten statements to which an individual subscribes a score to each from 1 to 5 (1=not a problem, 5=?as bad as it can be?) to describe how much of a problem that particular statement has been within the past two weeks. Kalia assigned ratings 1, 2, 3, or 4 to each statement. He responded 4 (?a lot?) to ?I have trouble using the telephone because of my voice? and ?I have to repeat myself to be understood.? He responded 3 (moderate) to ?I have trouble speaking loudly or being heard in noisy situations,? ?I sometimes get depressed because of my voice? and ?I have become less outgoing because of my voice.? He responded 2 (a small amount) to ?I am sometimes anxious or frustrated because of my voice? and ?I avoid going out socially because of my voice.? All other questions, he responded with a rating of 1. Kalia scored 24 on the questionnaire, which is considered to be ?good? in regards to the effect on one?s quality of life. This indicates that Kalia does not perceive his voice to negatively impact his quality of life overall. Maximum Phonation Time (MPT): [a] prolongation: range: 15.66-17.01 seconds, mean = 16.14 seconds When prompted to produce a prolonged ?AHH? ([a] prolongation), Kalia produced a strong vocal quality ranging in volume from the low 60s dB to the mid 70s dB. Compared to normative data of males age 68-89, Kalia?s maximum phonation time of [a] (?AHH?) is within one standard deviation below average indicating a value within functional limits. Norms: Mean 18.1 seconds (Standard deviation = 6.6 seconds) (Edwardk et al., 1966) Conversation and Reading Samples: Vocal loudness was evaluated through both conversation samples and reading samples with the use of a Sound Level Meter approximately 12 inches from the patient. Kalia?s loudness in both samples was comparable. During one conversation samples of one minute in length, Kalia?s loudness ranged from 52-67dB. While reading the [place], Kalia?s loudness ranged from low 50s dB to mid 60s dB. COGNITION: RBANS: Repeatable Battery for the Assessment of Neuropsychological Status Clinical Impression: Impaired Observations: RBANS: Repeatable Battery for the Assessment of Neuropsychological Status The RBANS-Updated Form A assesses aspects of cognitive memory, language, and attention skills. The RBANS is considered a screening battery for cognitive function and is repeatable for the purpose of evaluating any changes in function. It is intended for use with adolescents and adults, ages 12 to 89 years. Composite domains assessed in this test are: Immediate Memory, Visuospatial/Constructional, Language, Attention, and Delayed Memory. Interpretation of test performance is based on normative data on individuals between ages 60-69. It is noteworthy to mention the impact that symptoms of Parkinson?s has had on Kalia?s fine motor skills such as writing. This may have negatively impacted the figure drawing and coding tasks which require the individual to use fine motor writing skills. Kalia?s performance is summarized below: IMMEDIATE MEMORY: This domain assesses the individual's ability to remember information immediately after it is presented. Kalia was read a list of 10 words and asked to repeat back as many words as he could. Upon the first reading of the wordlist, he recalled 2 words accurately. The following three times that he was read the list; he recalled 4-5 words. Kalia was then read aloud a story and asked to recall as many details as possible. Upon the first reading of the story he recalled 6 of 12 corbin details. Following the second reading he again recalled 6 of 12 corbin details. Because Kalia was able to recall more information with additional repetitions in the wordlist task, this could indicate that repetition of information could help to support her memory. List Learning Total Score: 16 Scaled Score: 3 Interpretation: Extremely Low Story Memory Total Score: 12 Scaled Score: 5 Interpretation: Borderline Immediate Memory Index Score: 65 Percentile: 1 Interpretation: Extremely Low VISUOSPATIAL/CONSTUCTIONAL: This domain assesses the individual's ability to perceive spatial relations and to construct a spatially accurate copy of a drawing. During the Figure Copy task, Kalia was given an example of a specific figure to copy onto a piece of paper. Individuals are scored on both the drawing accuracy and placement of 10 different target items. Kalia?s drawing depicted rotations of shapes, misplacement of shapes, and inaccurate size of shapes. Kalia was then administered a Line Orientation task, in which an individual is asked to match two lines below to a series of angled numbered lines above. Kalia accurately identified both corresponding lines in 3 of 10 items, and 1 or 0 corresponding lines in the remaining 7 test 10 items; scoring 12 out of 20 in this subtest. Kalia was wearing his glasses during this subtest. Figure Copy Total Score: 18 Scaled Score: 10 Interpretation: Average Line Orientation Total Score: 12 Percentile Group: 3-9 Interpretation: Borderline Visuospatial/Constructional Index Score: 87 Percentile: 19 Interpretation: Low Average LANGUAGE: This domain assesses the individual's ability to respond verbally to either naming or retrieving learned material. Kalia was first asked to name the word of various line drawings in a responsive naming task. He responded to all test items quickly and accurately with notably clear speech. Kalia was then asked to name as many fruits and vegetables as he could in one minute in a Semantic Fluency task. Picture Naming Total Score: 10 Percentile Group: 51-75 Interpretation: Average Semantic Fluency Total Score: 15 Scaled Score: 6 Interpretation: Average Language Index Score: 90 Percentile: 25 Interpretation: Average ATTENTION: This domain assesses the individual's capacity to remember and manipulate both visually and orally presented information in short-term memory storage Kalia was read aloud strings of numbers of varying lengths then asked to recall the numbers. Kalia recalled strings of numbers up to 4 digits. In the coding subtest, Kalia was asked to write numbers to their matching symbols as quickly and efficiently as possible within 90 seconds. Kalia?s fine motor skills again was likely to have a negative impact on this subtest. Digit Span Total Score: 4 Scaled Score: 5 Interpretation: Borderline Coding Total Score: 19 Scaled Score: 3 Interpretation: Extremely Low Attention Index Score: 49 Percentile: <0.1 Interpretation: Extremely Low DELAYED MEMORY: This domain assesses the individual's anterograde memory capacity. Low scores indicate difficulties with recognition and retrieval of information from long-term memory stores. Kalia recalled 1 words out of the 10 wordlist that was presented to him earlier in the testing. When given a recognition task (i.e. ?Was apple on the list??), Kalia answered yes/no questions accurately for 16 of 20 test items. When asked to recall the story read to her earlier in testing, Kalia recalled 7 out of 12 corbin details which is notably more than the storytelling immediate recall task. Because Kalia performed better on the delayed story recall in comparison to the delayed list tasks, this may indicate that story telling or some version of word association may be a strategy to support his memory. List Recall Total Score: 1 Percentile Group: 3-9 Interpretation: Borderline List Recognition Total Score: 16 Percentile Group: =2 Interpretation: Extremely Low Story Recall Total Score: 7 Scaled Score: 8 Interpretation: Average Figure Recall Total Score: 13 Scaled Score: 10 Interpretation: Average Delayed Memory Index Score: 71 Percentile: 3 Interpretation: Borderline Sum of Index Scores: 362 Total Scale Score: 65 Percentile: 1 Interpretation: Extremely Low Fady Reyes (1998). Repeatable Battery for the Assessment of Neuropsychological Status [Manual]. TIMOTHY Moss: Tram. Impressions and Recommendations Summary: Based on standardized testing using the RBANS on this date, Kalia performed ?extremely low? overall compared to individuals age 60-69. In addition to overall score, Kalia performed ?extremely low? on two cognitive domains: immediate memory and attention. It is recommended that Kalia attend outpatient speech therapy for three weeks to target immediate memory and attention as well as further evaluation of motor speech and voice. Given his diagnosis of Parkinson?s disease and his increased concern with volume of voice, Kalia may be a candidate for the [facility] program which is an intensive program with a Speech-Language Pathologist that targets vocal loudness. Recommendation for Speech Therapy: Outpatient Speech Therapy Frequency/Duration: 1x/week x 12 weeks Date Range for Service Requested: Time to Reassess: 3 months Detention Goals: LTG 1: Kalia will learn rehabilitative and compensatory strategies to support memory LTG 2: Kalia will improve performance in attention based tasks Short Term Goals: Goal # : STG 1.1: Kalia will recall 4-5 strategies to support memory in 80% of opportunities Goal Status: New Goal Goal# : STG 1.2: Kalia will recall a 7-10-item wordlist in 80% of opportunities when provided with moderate support Goal Status: New Goal Goal # : STG 2.1 Kalia will complete complex (divided, alternating) attention tasks (i.e. coding task) in 80% of opportunities when provided with moderate clinician/communication partner support Goal Status: New Goal Goal # : STG 2.2 Kalia will complete simple (sustained, selective) attention tasks (i.e. listening to clinician talk while crinkling paper) in 80% of opportunities when provided with moderate clinician/communication partner support Goal Status: New Goal Recommended Referrals to be Discussed with Primary Care Provider: Audiological Evaluation Other: See Comment -It is recommended that Kalia be referred for an instrumental swallow evaluation due to reported difficulty with swallowing -It is recommended that Kalia be referred for a full audiological evaluation to rule in/out hearing loss. Per the audiology team at [facility] [place] it is typically recommended for individuals with stable hearing to be re-evaluated every 2-3 years or sooner if changes or concerns arise. Patient Education: Completed: Yes Patient/Caregiver Education: Described Results of Evaluation Patient expressed understanding of evaluation Patient agrees with goals and treatment plan Family/Caregivers expressed understanding of results Family/Caregivers expressed agreement with goals and treatment plan Patient requires further education on strategies Family/Caregivers require further education on strategies Solid Waste Management Engineer Clinican/Clinical Fellow: No Supervisory Statement: N/A Speech Language Pathologist: Rosa Isela Jennings M.A., CCC-MANAGER [employer]IVERSITY
== END 2024-12-22 14:39 | disposition still patient (30) ==
LOC: HO.SH 10:01
PROVIDERS: PCP Internal Medicine; Visit Provider Psychiatry & Neurology Neurology
DX: R41.3 Other amnesia (principal); G20.A1 Parkinson's disease without dyskinesia, without mention of fluctuations
CPT/HCPCS: 96125

== ENCOUNTER 2025-01-10 12:44 | Outpatient (AMB) | payer MEDICARE, SELFPAY ==
[2025-01-10 12:55] VITALS: BP 96/64; BMI 22.3
--- NOTE | 2025-01-10 12:55 | A.OFFVIS_ITS ---
Vital Signs 01/10/25 12:55 Height 5 ft 9 in Weight 151 lb BMI 22.3 BP 96/64 Blood Pressure Location Rt brachial Position Sitting Intake Visit Reasons: Follow up 4mo Intake Note: Patient presents for follow up speech and hearing consult 11/24 and PT note from 08/08/24 Allergies No Known Allergies Allergy (Verified 01/10/25 12:57) HPI Comments Details: 69 y/o male patient presents with his for follow up of Parkinson disease.He is slower with his ADLS since his last visit.He needs occasional help with putting on his shirt .He had 1 fall last month while he was working out side - tripped on something.SPeech is slower , Memory is slower. The increase in dose did not help much Pt is on Sinemet 25/100 mg, 2-1 1/2-2- 1 07/06 and CR at bedtime. Citalopram 20 mg qd Clonazepam 0.5mg qhs He has a very disrupted sleep but takes a nap in the morning after breakfast. He uses MiraLax to manage constipation. He is on clonazepam 0.5 mg qHS for REM behavior and he is better. He sleeps well, uses bed rails. He was diagnosed with VAN and started on AUtoPAP 5-20 but he is unable to tolerate it AHI was 14 and O 2 melanie was 81 %He was seen by dentist but patient declined dental device. Pt reports that his anxiety has been better with citalopram 20 mg daily. No hallucination. He takes miralax for constipation. He exercise 3 times a week- 1 with a PT and 2 DOPA exercise class. The rest of the days he is active He is doing cognitive therapy. He still has word finding difficulty - stuttering COUNTS INCLUDE 234 BEDS AT THE [facility] Medical History Memory change Obstructive sleep apnea Allergic rhinitis Nephrolithiasis BPH (benign prostatic hyperplasia) Ischemic cardiomyopathy Hyperlipidemia Diverticulosis CAD (coronary artery disease) Surgical History H/O carotid endarterectomy H/O heart surgery Family History Mother Parkinson disease Father Cirrhosis of liver Social History Alcohol intake: never Patient Tobacco Use Status: Never used Tobacco Review of Systems Neuro Reports Abnormal speech present Physical Exam Vital Signs: Last Vital Signs BP 96/64 01/10/25 12:55 BMI result Body Mass Index 22.3 Const General: cooperative and healthy appearing Nutritional Appearance: average body habitus Orientation/consciousness: patient oriented x3 HEENT Head: Yes normal to inspection Eyes Pupils: Equal, round and reactive pupils present Neck Other: mild antecollis Neuro Other: right wrist more stiff than left. Left hand more tremor. FFM and foot taps decreased L>R- slower than last visit General: patient oriented x3 Cranial nerves: Yes Facial sensation intact/muscles of mastication intact, Yes Equal, round and reactive pupils present, Yes Bilaterally intact EOM present, Yes Nystagmus not present, Yes Normal facial strength present and Yes Midline tongue present Cognition (Neuro): normal cognition Speech: Abnormal speech present Motor exam (neuro): 5/5 motor strength present throughout Psych Mental Status: mental status grossly normal Affect: normal affect Assessment & Plan Assessment & Plan (1) Parkinson's disease: Code(s): G20 - Parkinson's disease Category: Medical Qualifiers: Dyskinesia presence: without dyskinesia Fluctuating manifestations: without fluctuating manifestations Qualified Code(s): G20.A1 - Parkinson's disease without dyskinesia, without mention of fluctuations (2) Anxiety: Code(s): F41.9 - Anxiety disorder, unspecified Category: Medical (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 Increase Carbidopa/Levodopa 25-100 mg, 2 tab qid and Sinemet 25/100 mg ER qHS. will consider adding rasagiline or increasing ER to bid Increase fluids and continue to use miralax to manage constipation. Continue to do daily exercise. Medications: Changed From carbidopa-levodopa 25-100 mg 1.5 tabs PO QID 90 days 540 tabs 2RF To carbidopa-levodopa 25-100 mg 2 tabs PO QID 720 tabs 2RF 90 days Coding Level of Care Code Est Pt Level 4 (49433) Complex EM visit Add On G2211 Diagnoses Parkinson's disease without dyskinesia or fluctuating manifestations G20.A1 Dyskinesia presence: without dyskinesia Fluctuating manifestations: without fluctuating manifestations Anxiety F41.9 REM behavioral disorder G47.52 Obstructive sleep apnea G47.33
--- OUTSIDE RECORDS SUMMARY | 2025-01-10 13:35 | XMS_ITS | Clinical Summary ---
Author Organization [address] [facility] Address [address] [place] [address] Phone Care Team Providers Care Attraction Attendant Name Role Phone Miguel Chowdary MD Primary Care Provider [phone] Allergies Active Allergy Reactions Criticality Noted Date Comments Bee Venom Protein (Honey Bee) Swelling High 2010 Medications aspirin 81 mg EC tablet Take 1 tablet (81 mg total) by mouth 1 (one) time each day. OTC Active carbidopa-levod opa (SINEMET) 25-100 mg per tablet Take 1.5 tablets by mouth 4 (four) times a day. Neurologist prescribed meds Active carbidopa-levod opa (Rytary) 23.75-95 mg per XR capsule Neurologist prescribed meds Active citalopram (CeleXA) 10 mg tablet Take 1 tablet (10 mg total) by mouth 1 (one) time each day. Neurologist prescribed meds Active clonazePAM (KlonoPIN) 0.5 mg tablet Neurologist prescribed meds Active polyethylene glycol (MIRALAX) 17 gram packet OTC Active evolocumab (Repatha SureClick) 140 mg/mL pen injector injection INJECT 1 ML INTO THE SKIN EVERY 14 DAYS 6 mL 1 Active Active Problems Problem Noted Date Diagnosed [...] failure with p reserved ejection fraction (HFpEF) ([facility] V24, [facility] V28) 10/08/2023 Anxiety 12/21/2022 Parkinson disease ([facility] V24, [facility] V28) Overview (04/19/2024): Somewhat complex picture with multiple components including anxiety, REM phase sleep disorder, please see consultation note by neurology, Dr. Ahumada, 11/13/22 Primary insomnia 12/21/2022 Primary hypertension 02/13/2022 STEMI involving right ba ry artery ([facility] V24, [facility] V28) 02/13/2022 Bilateral carotid artery stenosis 05/20/2021 Diverticulosis 04/05/2020 Overview (04/19/2024): Incidental finding 2006 CN- Repeat 10 yrs Ischemic cardiomyopathy 04/05/2020 Overview (04/19/2024): 09/2019 EF 45-55% Mixed hyperlipidemia 04/05/2020 Peyronie's disease 04/05/2020 Coronary artery disease invo lving [place] coronary artery of [place] heart without angina pectoris 12/21/2019 Overview (04/19/2024): STEMI 09/2019 s/p stent to distal RCA BPH (benign prostatic hyperplasia) 08/31/2014 Nephrolithiasis 07/31/2008 Overview (04/19/2024): 2008; Dr. Taye Monsalve Allergic rhinitis 07/28/2005 Overview (04/19/2024): deviated septum seen by ENT & opted to forgo surgery Encounters Date Type Department Care Team Description 11/01/2024 2:00 PM EDT Office Visit Adult Medicine [address] [phone] Tess Cortes NP Pericardial pain (Primary Dx); Chronic heart failure with preserved ejection fraction (HFpEF) (CMS/HCC V24, CMS/HCC V28); Mixed hyperlipidemia; Encounter for examination following treatment at hospital; Need for tetanus, diphtheria, and acellular pertussis (Tdap) vaccine; Encounter for screening for cardiovascular disorders 10/31/2024 Telephone Adult Medicine [address] [phone] Miguel Chowdary MD Hospitalization/ER 10/27/2024 5:22 PM EDT - 10/27/2024 9:50 PM EDT Emergency [facility] Emergency [address] [place] [address] Vish Al MD Precordial pain (Primary Dx) Discharge Disposition: Home or Self Care from Last 3 Months Immunizations Name Administration Dates Next Due Influenza Quadravalent, MDCK , 0.5ml, preservative free (Flucelvax) 6mo and older 04/21/2023,03/19/2020 Influenza trivalent, 0.5mL ( Fluad) 65yo and older 06/22/2022,07/21/2021 [employer] SARS-CoV-2 COVID-19, mRNA, LNP-S, preservative free 07/15/2021,09/11/2020,08/22/2020 Pneumococcal conjugate 20 va lent (Prevnar 20, PCV 20) 2mo and older 01/20/2024 Tdap Tetanus diptheria acell ular pertussis (Boostrix; Adacel) 7yo and older 11/01/2024,08/31/2014 Surgical History Surgery Date Site/Laterality Comments TONSILLECTOMY childhood PROCEDURE: HISTORICAL TONSILLECTOMY OTHER SURGICAL HISTORY PROCEDURE: TN REPAIR PRIMARY OPEN/PRQ RUPTURED ACHILLES TENDON ANGIOPLASTY 09/2019 PROCEDURE: HISTORICAL ANGIOPLASTY W/STENT; COMMENT: [facility] of mid RCA with Xience 3.5 x 18mm stent performed dy Dr. Francois @ [facility] COLONOSCOPY 08/11/2006 PROCEDURE: HISTORICAL COLONOSCOPY; COMMENT: Diverticulosis, [...] DX: History of actinic keratoses Myocardial infarction (CMS/H CC V24, CMS/HCC V28) CHF (congestive heart failur e) (CMS/HCC V24, CMS/HCC V28) Parkinson's disease (CMS/HCC V24, CMS/HCC V28) 2019 Family History Medical History Relation Name Comments [...] for your loved ones. For example, child care assistant or elderly care for an older [...] Recorded Sex Assigned at Not on file Legal Sex Male 5:29 AM EST Gender Identity Not on file Sexual Orientation Not on file Obstetrics History Last Filed Vital Signs Vital Sign Reading Time Taken Comments Blood Pressure 96/62 11/01/2024 1:54 PM EDT Pulse 61 11/01/2024 1:54 PM EDT Temperature 36.2 C (97.1 F) 11/01/2024 1:54 PM EDT Respiratory Rate 16 11/01/2024 1:54 PM EDT Oxygen Saturation 95% 11/01/2024 1:54 PM EDT Inhaled Oxygen Concentration - - Weight 69.7 kg (153 lb 9.6 oz) 11/01/2024 1:54 P M EDT Height 175.3 cm (5' 9 ) 11/01/2024 1:54 PM EDT Body Mass Index 22.68 11/01/2024 1:54 PM EDT Plan of Treatment Upcoming Encounters Date Type Department Care Team (Late st Contact Info) Description 02/05/2025 9:10 AM EDT Office Visit [facility] [address] [place] [address] Eliz Nolasco, JORGE ALBERTO [address] [place] [address] [place] [address] 04/03/2025 11:15 AM EDT Office Visit Adult Medicine [address] [phone] Miguel Chowdary MD [address] [place] [phone] Health Maintenance Due Date Last Done Comments Zoster Vaccines (1 of 2) 1974 RSV Immunization Adult Patients (1 - Risk 60-74 years 1-dose series) 2015 Medicare Annual Wellness Visit 12/22/2023 12/21/2022 Influenza Vaccine (#1) 2025 , 06/22/2022, 07/21/2021, Additional history exists Depression Screening 06/22/2025 06/22/2024 Social Influencers of Health Screening 06/22/2025 06/22/2024 Falls Risk Assessment 06/29/2025 06/29/2024 , 06/08/2024, 01/20/2024 Hypertension/CHF/CAD Annual BMP Blood Test 10/27/2025 10/27/2024, 04/04/2024, 04/04/2024, Additional history exists Colorectal Cancer Screening: Colonoscopy 10/29/2026 10/29/2021 Cholesterol Screening (Lipid Panel) 01/19/2029 01/20/2024, 01/20/2024 DTaP,Tdap,and Td Vaccines (3 - Td or Tdap) 11/01/2034 11/01/2024, 08/31/2014 Hepatitis C Screening Completed 04/05/2020 COVID-19 Vaccine Discontinued 07/15/2021, 04/2021, 08/22/2020 Pneumococcal Vaccine: 50+ Years Completed 01/20/2024 HIB Vaccines Aged Out [...] patient's age to complete this topic Meningococcal B Vaccine Aged Out No l onger eligible based on patient's age to complete this topic RSV Immunization Patients Under 20 months Aged Out No longer eligible based on patient's age to complete this topic Varicella Vaccines Aged Out No longer eligible based on patient's age to complete this topic Procedures Procedure Name Priority Date/Time Associated Diagnosis Comments ECG ANNOTATED 10/30/2024 ECG 12-LEAD STAT 10/27/2024 6:35 PM EDT TROPONIN I HIGH SENSITIVITY STAT 10/27/2024 6:24 PM EDT XR CHEST 2 VIEWS STAT 10/27/2024 5:56 PM EDT CBC WITH AUTO DIFFERENTIAL STAT 10/27/2024 5:47 PM EDT B-TYPE NATRIURETIC PEPTIDE STAT 10/27/2024 5:47 PM EDT MAGNESIUM STAT 10/27/2024 5:47 PM EDT LIPASE STAT 10/27/2024 5:47 PM EDT COMPREHENSIVE METABOLIC PANEL STAT 10/27/2024 5:47 PM EDT CBC AND DIFFERENTIAL STAT 10/27/2024 5:47 PM EDT TROPONIN I HIGH SENSITIVITY STAT 10/27/2024 5:47 PM EDT ECG 12-LEAD STAT 10/27/2024 5:34 PM EDT FALLS RISK ASSESSMENT Routine 01/20/2024 LIPID PANEL Routine 01/20/2024 COLONOSCOPY Routine 10/29/2021 HEPATITIS C SCREENING Routine 04/05/2020 from Last 3 Months or Most Recently Relevant to Health Maintenance Results * ECG-Annotated (10/30/2024) us Provider Onbase MD ECG ORDERABLES Final Result * ECG 12 lead (10/27/2024 6:35 PM EDT) Only the most recent of2 resultswithin the time period is included. Ventricular Rate ECG 57 BPM GEMUSE Atrial Rate 57 BPM GEMUSE P-R Interval 142 ms GEMUSE QRS Duration 84 ms GEMUSE Q-T Interval 448 ms GEMUSE QTc 436 ms GEMUSE P Wave Merlin 44 degrees GEMUSE R Merlin 50 degrees GEMUSE T Merlin 50 degrees GEMUSE ECG Interpretation Sinus bradycardia Otherwise normal ECG When compared with ECG of 27-OCT-2024 17:34, No significant change was found Confirmed by MD Colin, [place] ([id number]) on 10/28/2024 11:59:56 PM GEMUSE 10/27/2024 6:35 PM EDT 10/28/2024 11:59 PM EDT Vish Al MD ECG ORDERABLES Final Res ult Performing Organization Address City/[facility]/ZIP Co de Phone Number GEMUSE * Troponin I high sensitivity (10/27/2024 6:24 PM EDT) Only the most recent of2 resultswithin the time period is included. High Sensitivity Troponin I 7 <=79 ng/L LAB CHEMISTRY METHOD 10/27/2024 8:10 PM EDT [facility] Blood Venous blood specimen / Unknown Venipuncture / Unknown 10/27/2024 6:24 PM EDT 10/27/2024 6:50 PM EDT Narrative [facility] - 10/27/2024 8:10 PM EDT High levels of biotin in samples may falsely decrease hsTroponin values. Use caution when interpreting hsTroponin results in patients taking biotin who exhibit renal impairment (eGFR <60) or in patients taking more than 20 mg/day of biotin. Vish Al MD LAB BLOOD ORDERABLES Odalis l Result Performing Organization Address [facility] Co de Phone Number [facility] [address] [place] [address], [place] [phone] * XR Chest 2 Views (10/27/2024 5:56 PM EDT) Anatomical Region Laterality Modality Body Radiographic Neva ging 10/28/2024 9:09 AM EDT Impressions 10/28/2024 9:09 AM EDT FINDINGS/IMPRESSION: Normal heart size and pulmonary vascularity. Lungs are clear and costophrenic angles are sharp. No acute osseous abnormality. -------- FINAL REPORT -------- Dictated By: Dave De Guzman Dictated Date: 10/28/2024 09:09 ET Assigned Physician: Dave De Guzman Reviewed and Electronically Signed By: Dave De Guzman Signed Date: 10/28/2024 09:09 ET Workstation ID: [id number] Transcribed By: Self Edit Transcribed Date: 10/28/2024 09:09 ET Narrative 10/28/2024 9:09 AM EDT XR CHEST 2 VIEWS INDICATION: chest pain TECHNIQUE: XR CHEST 2 VIEWS COMPARISON: No priors available. Procedure Note Dave De Guzman MD - 10/28/2024 XR CHEST 2 VIEWS INDICATION: chest pain TECHNIQUE: XR CHEST 2 VIEWS COMPARISON: No priors available. IMPRESSION: FINDINGS/IMPRESSION: Normal heart size and pulmonary vascularity. Lungsare clear and costophrenic angles are sharp. No acute osseousabnormality. -------- FINAL REPORT -------- Dictated By: Dave De Guzman Dictated Date: 10/28/2024 09:09 ET Assigned Physician: Dave De Guzman Reviewed and Electronically Signed By: Dave De Guzman Signed Date: 10/28/2024 09:09 ET Workstation ID: [id number] Transcribed By: Self Edit Transcribed Date: 10/28/2024 09:09 ET Vish Al MD IMG XR PROCEDURES Final R esult * (ABNORMAL) CBC auto differential (10/27/2024 5:47 PM EDT) [facility] WBC 6.1 4.8 - 10.8 K/[facility] LAB HEMETOLOGY METHOD 10/27/2024 6:15 PM EDT [facility] RBC 4.20(L) 4.50 - 5.50 M/[facility] LAB HEMETOLOGY METHOD 10/27/2024 6:15 PM EDT [facility] Hemoglobin 13.3(L) 13.5 - 17.5 g/dL LAB HEMETOLOGY METHOD 10/27/2024 6:15 PM EDT [facility] Hematocrit 39.7(L) 42.0 - 54.0 % LAB HEMETOLOGY METHOD 10/27/2024 6:15 PM EDT [facility] MCV 94.3 79.0 - 98.0 FL LAB H[facility]ETOLOGY METHOD [facility] MCH 31.6 27.0 - 32.0 pcg LAB HEMETOLOGY METHOD 10/27/2024 6:15 PM [facility] MCHC 33.5 32.0 - 37.0 g/dL LAB HEMETOLOGY METHOD 10/27/2024 6:15 PM [facility] RDW 12.5 11.0 - 15.0 % LAB HEMETOLOGY METHOD 10/27/2024 6:15 PM [facility] Platelets 178 130 - 400 K/mcL LAB HEMETOLOGY METHOD 10/27/2024 6:15 PM [facility] MPV 8.9 7.0 - 11.0 FL LAB HEMETOLOGY METHOD 10/27/2024 6:15 PM [facility] NRBC 0.0 <1.0 % LAB HEMETOLOGY METHOD 10/27/2024 6:15 PM [facility] NRBC Absolute 0.00 <0.10 K/mcL LAB HEMETOLOGY METHOD 10/27/2024 6:15 PM [facility] Neutrophils Relative 70.0 % LAB HEMETOLOGY METHOD 10/27/2024 6:15 PM [facility] Lymphocytes Relative 16.6 % LAB HEMETOLOGY METHOD 10/27/2024 6:15 PM [facility] Monocytes Relative 10.2 % LAB HEMETOLOGY METHOD 10/27/2024 6:15 PM [facility] Eosinophils Relative 2.0 % LAB HEMETOLOGY METHOD 10/27/2024 6:15 PM [facility] Basophils Relative 0.7 % LAB HEMETOLOGY METHOD 10/27/2024 6:15 PM [facility] Immature Granulocytes Relative 0.5 % LAB HEMETOLOGY METHOD 10/27/2024 6:15 PM [facility] Neutrophils Absolute 4.27 1.50 - 7.00 K/mcL LAB HEMETOLOGY METHOD 10/27/2024 6:15 PM EDT [facility] Lymphocytes Absolute 1.01 1.00 - 5.00 K/mcL LAB HEMETOLOGY METHOD 10/27/2024 6:15 PM EDT [facility] Monocytes Absolute 0.62 0.20 - 1.00 K/mcL LAB HEMETOLOGY METHOD 10/27/2024 6:15 PM EDT [facility] Eosinophils Absolute 0.12 0.00 - 0.50 K/mcL LAB HEMETOLOGY METHOD 10/27/2024 6:15 PM EDT [facility] Basophils Absolute 0.04 0.00 - 0.20 K/mcL LAB HEMETOLOGY METHOD 10/27/2024 6:15 PM EDT [facility] Immature Granulocytes Absolute 0.03 0.00 - 0.03 K/mcL LAB HEMETOLOGY METHOD 10/27/2024 6:15 PM EDT [facility] Blood Venous blood specimen / Unknown Venipuncture / Unknown 10/27/2024 5:47 PM EDT 10/27/2024 5:57 PM EDT Vish Al MD LAB BLOOD ORDERABLES Odalis l Result [facility] [address] [place] [address], * B-type natriuretic peptide (10/27/2024 5:47 PM EDT) BNP 63 <=100 pcg/mL LAB CHEMISTRY METHOD 10/27/2024 6:38 PM EDT [facility] Blood Venous blood specimen / Unknown Venipuncture / Unknown 10/27/2024 5:47 PM EDT 10/27/2024 5:57 PM EDT Vish Al MD LAB BLOOD ORDERABLES Odalis l Result Performing Organization Address [facility]/ZIP Co de Phone Number [facility] [address] [place] [address], [place] [phone] * Magnesium (10/27/2024 5:47 PM EDT) [facility] Magnesium 2.1 1.9 - 2.6 mg/dL LAB CHEMISTRY METHOD 10/27/2024 6:30 PM EDT [facility] Blood Venous blood specimen / Unknown Venipuncture / Unknown 10/27/2024 5:47 PM EDT 10/27/2024 5:57 PM EDT Vish Al MD LAB BLOOD ORDERABLES Odalis l Result Performing Organization Address [facility]/ZIP Co de Phone Number [facility] [address] [place] [address], [place] [phone] * Lipase (10/27/2024 5:47 PM EDT) [facility] Lipase 31 13 - 75 unit/L LAB CHEMISTRY METHOD 10/27/2024 6:30 PM EDT [facility] Blood Venous blood specimen / Unknown Venipuncture / Unknown 10/27/2024 5:47 PM EDT 10/27/2024 5:57 PM EDT Vish Al MD LAB BLOOD ORDERABLES Odalis l Result Performing Organization Address [facility]/ZIP Co de Phone Number [facility] [address] [place] [address], [place] [phone] * (ABNORMAL) Comprehensive metabolic panel (10/27/2024 5:47 PM EDT) [facility] Sodium 139 133 - 145 mmol/L LAB CHEMISTRY METHOD 10/27/2024 6:30 PM [facility] Potassium 4.2 3.5 - 5.5 mmol/L LAB CHEMISTRY METHOD 10/27/2024 6:30 PM [facility] Chloride 105 96 - 110 mmol/L LAB CHEMISTRY METHOD 10/27/2024 6:30 PM [facility] CO2 29 21 - 32 mmol/L LAB CHEMISTRY METHOD 10/27/2024 6:30 PM [facility] Anion Gap 5 3 - 11 LAB CHEMISTRY METHOD 10/27/2024 6:30 PM [facility] Glucose 86 70 - 100 mg/dL LAB CHEMISTRY METHOD 10/27/2024 6:30 PM [facility] BUN 14 5 - 25 mg/dL LAB CHEMISTRY METHOD 10/27/2024 6:30 PM [facility] Creatinine 0.83 0.70 - 1.30 mg/dL LAB CHEMISTRY METHOD 10/27/2024 6:30 PM [facility] eGFR 95 >=60 mL/min/1. 73m2 LAB CHEMISTRY METHOD 10/27/2024 6:30 PM [facility] Comment:Calculation based on the Chronic Kidney Disease Epidemiology Collaboration (CKD-EPI) equation refit without adjustment for race. BUN/Creatinine Ratio 16.9 LAB CHEMISTRY METHOD 10/27/2024 6:30 PM [facility] Calcium 8.3(L) 8.5 - 10.5 mg/dL LAB CHEMISTRY METHOD 10/27/2024 6:30 PM [facility] AST (SGOT) 14 10 - 42 unit/L LAB CHEMISTRY METHOD 10/27/2024 6:30 PM [facility] ALT (SGPT) 7(L) 10 - 60 unit/L LAB CHEMISTRY METHOD 10/27/2024 6:30 PM [facility] Alkaline Phosphatase 93 42 - 121 unit/L LAB CHEMISTRY METHOD 10/27/2024 6:30 PM EDT [facility] Total Protein 5.9(L) 6.0 - 8.0 g/dL LAB CHEMISTRY METHOD 10/27/2024 6:30 PM EDT [facility] Albumin 3.3 3.2 - 5.0 g/dL LAB CHEMISTRY METHOD 10/27/2024 6:30 PM EDT [facility] Total Bilirubin 0.6 0.0 - 1.4 mg/dL LAB CHEMISTRY METHOD 10/27/2024 6:30 PM EDT [facility] Blood Venous blood specimen / Unknown Venipuncture / Unknown 10/27/2024 5:47 PM EDT 10/27/2024 5:57 PM EDT Vish Al MD LAB BLOOD ORDERABLES Odalis l Result [facility] [address] [place] [address], * Falls Risk Assessment (01/20/2024) [facility] Falls Risk Assessment abstracted [facility] Provider HEALTH MAINTENANCE Final Result * Lipid panel (01/20/2024) [facility] LDL/HDL Ratio 2 0 - 4 Triglycerides 53 0 - 150 mg/dL Cholesterol 135 0 - 200 mg/dL HDL 72 >=40 mg/dL LDL Cholesterol 53 0 - 100 mg/dL Blood Venous blood specimen / Unknown [facility] Provider LAB BLOOD ORDERABLES Odalis l Result * Colonoscopy (10/29/2021) [facility] Colonoscopy no interpreta tion,abstr acted Anatomical Region Laterality Modality Other [facility] Provider HEALTH MAINTENANCE Final Result * Hepatitis C Screening (04/05/2020) [facility] Hepatitis C Screening abstracted Historical Provider HEALTH MAINTENANCE Final Result from Last 3 Months or Most Recently Relevant to Health Maintenance Insurance MEDICARE [facility] Care Teams Attraction Attendant Relationship Specialty Start Date End Date Miguel Chowdary MD [address] [place] [address] PCP - General Internal Medicine 01/24/19
--- OUTSIDE RECORDS SUMMARY | 2025-01-10 13:35 | XMS_ITS | Encounter Summary ---
Author Organization [facility] Address [address] [place] [address] Care Team Providers Care Dealer Analyst Name Role Phone Miguel Chowdary MD Primary Care Provider Unavailabl e Encounter Details Date Type Department Care Team (Late st Contact Info) Description 12/08/2019 Scanned Document [facility] [address] [place] [phone] Rm Francois MD [address] [place] [address] Social History Tobacco Use Types Packs/Day Years [...] at Not on file Legal Sex Male 8:26 AM EDT Gender Identity Not on file Sexual Orientation [...] on filedocumented in this encounter Care Teams Dealer Analyst Relationship Specialty Start Date End Date Miguel Chowdary MD PCP - General 09/28/19 documented as of this encounter
== END 2025-01-10 13:32 | disposition home or self-care (01) ==
LOC: HO.HSMS 12:44
PROVIDERS: PCP Internal Medicine; Visit Provider Psychiatry & Neurology Neurology
DX: G20.A1 Parkinson's disease without dyskinesia, without mention of fluctuations (principal); F41.9 Anxiety disorder, unspecified; G47.52 REM sleep behavior disorder; G47.33 Obstructive sleep apnea (adult) (pediatric)
CPT/HCPCS: 99214; G2211

== ENCOUNTER → 2025-01-10 12:44 | Outpatient (BNVA) | payer MEDICARE, SELFPAY | PROVIDERS: PCP Internal Medicine; Visit Provider Psychiatry & Neurology Neurology | DX: G20.A1 Parkinson's disease without dyskinesia, without mention of fluctuations (principal); F41.9 Anxiety disorder, unspecified; G47.33 Obstructive sleep apnea (adult) (pediatric); G47.52 REM sleep behavior disorder; Z79.899 Other long term (current) drug therapy | CPT/HCPCS: 99212 ==

== ENCOUNTER 2025-01-23 13:00 | Outpatient (RCR) | payer MEDICARE, SELFPAY ==
--- NOTE | 2025-02-28 14:37 | MHC.SL.SOA ---
Referring Provider: Beth Charles MD Reason for Referral: amenesia, Parkinson's Date of Plan of Treatment:11/22/24 Onset of Symptoms/Illness:11/22/17 Date Treatment Started:11/22/24 Medical Diagnosis: Primary Speech Language Diagnosis:G20 Parkinson?s disease Secondary Speech Language Diagnosis:I69.911 Memory deficit Number of Authorized Visits Remaining: Authorization End Date: Reason for Visit:Non-billable Event Other: Subjective:This is an administrative discharge note for Josué Taylor, who elected to end language based cognitive therapy. Per a phone call with his , she reported that they had both learned some new information and strategies from the therapy sessions, but did not wish to continue with treatment. Josué was seen for four cognitive based therapy sessions from 12/26/24-01/24/24 Objective: Josué engaged in structured practice of memory strategies through language specific exercises. Assessment:1.1: Josué used reheasal/repetition to recall a list of words for performing a functional task with 70% accuracy on recall, with errors related to recency/latency in his recall (omitted either the second or third word in the list). On following directions with a visual support/image, Josué was noted not to repeat or rehearse, yet demonstrated excellent accuracy on the task (100%). Josué's strong skills with visual memory/processing was discussed as a go to strategy. 2.1 Using a similar but subtly contrasting images, Josué readily labelled differences between the images with very good accuracy and evident, strong visual perceptual skills. 3.1: Josué formulated semantic associations to assist with recall of information in functional tasks with some difficulty at times with this language based strategy (60% accuracy. 4.1: Given his strengths with visual memory and processing, Josué generally instinctively used visualization, visual association and visual organizational skills as a preferred strategy for recall of information. Notes: The following goals are recommended: Plan: Goal # : STG 1.1: Kalia will use a rehearsal strategy to recall a detail or specific information from visual or verbal presented information with 80% accuracy Status of Goal: Discharge Goal Goal # : STG 2.1: Kalia will use a visualization strategy to recall a detail or specific information from verbally presented information with 80% accuracy. Status of Goal: Discharge Goal Goal # : STG 3.1 Kalia will use an association strategy to recall a detail or specific information from verbally presented information with 80% accuracy. Status of Goal: Discharge Goal Goal # : STG 4.1 Kalia will electively use a strategy to remember and retrieve needed information in four out of five contexts. Status of Goal: New Goal Seen by: Graduate/Clinical Fellow: Supervisory Statement: f_Reg Query Last Value , MHC.AU.SIGNAT Speech Language Pathologist: Kamala Pino M.A., CCC-SIZE WORKER
== END 2025-03-27 13:52 | disposition home or self-care (01) ==
LOC: HO.SH 13:00
PROVIDERS: PCP Internal Medicine; Visit Provider Psychiatry & Neurology Neurology
DX: R41.3 Other amnesia (principal); G20.A1 Parkinson's disease without dyskinesia, without mention of fluctuations
CPT/HCPCS: 92507

== ENCOUNTER 2025-05-08 08:28 | Outpatient (AMB) | payer MEDICARE, SELFPAY ==
[2025-05-08 08:28] VITALS: BP 100/58; PULSE 61; O2SAT 95; BMI 23.0
--- NOTE | 2025-05-08 08:28 | A.OFFVIS_ITS ---
Vital Signs 05/08/25 08:28 Height 5 ft 9 in Weight 155 lb 8 oz BMI 23.0 BP 100/58 L Blood Pressure Location Rt brachial Position Sitting Pulse 61 Pulse Source Pulse Oximeter Pulse Oximetry (%) 95 Oxygen Delivery Method Room Air Intake Visit Reasons: 4mnth follow up Intake Note: Follow up Parkinson's disease, Anxiety, REM Behavioral disorder and VAN [facility] Products Assembler Required: No Accompanied by: Spouse Allergies No Known Allergies Allergy (Verified 05/08/25 08:28) HPI Comments Details: 69 y/o male patient presents with his for follow up of Parkinson disease.He is slower with his ADLS since his last visit.He needs occasional help with putting on his shirt .He had 1 fall last month while he was working out side - tripped on something.SPeech is slower , Memory is slower. The increase in dose did not help much He had a fall in the middle of the night- passed out when he woke up to [facility] bathroom . Pt is on Sinemet 25/100 mg, 2 tabs qid and CR at bedtime. Citalopram 20 mg qd Clonazepam 0.5mg qhs He has a very disrupted sleep but takes a nap in the morning after breakfast. He uses MiraLax to manage constipation. He is on clonazepam 0.5 mg qHS for REM behavior and he is better. He sleeps well, uses bed rails. He was diagnosed with VAN and started on AUtoPAP 5-20 but he is unable to tolerate it AHI was 14 and O 2 melanie was 81 %He was seen by dentist but patient declined dental device.Now his is concerned about his witnessed apneas Pt reports that his anxiety has been better with citalopram 20 mg daily. No hallucination. He takes miralax for constipation. He exe He still has word finding difficulty - stuttering [facility] Medical History Memory change Obstructive sleep apnea Allergic rhinitis Nephrolithiasis BPH (benign prostatic hyperplasia) Ischemic cardiomyopathy Hyperlipidemia Diverticulosis CAD (coronary artery disease) Surgical History H/O carotid endarterectomy H/O heart surgery Family History Mother Parkinson disease Father Cirrhosis of liver Social History Alcohol intake: never Patient Tobacco Use Status: Never used Tobacco Review of Systems Neuro Reports Abnormal speech present Physical Exam Vital Signs: Last Vital Signs Pulse 61 05/08/25 08:28 BP 100/58 L 05/08/25 08:28 Pulse Ox 95 05/08/25 08:28 Oxygen Delivery Method Room Air 05/08/25 08:28 BMI result Body Mass Index 23.0 supine BP 90/60 [place] 78 Standing 1 min 90/70 [place] 73 Standing 3 min 90/62 [place] 50 Const General: cooperative and healthy appearing Nutritional Appearance: average body habitus Orientation/consciousness: patient oriented x3 HEENT Head: Yes normal to inspection Eyes Pupils: Equal, round and reactive pupils present Neck Other: mild antecollis Neuro Other: right wrist more stiff than left. Left hand more tremor. FFM and foot taps decreased L>R- slower than last visit General: patient oriented x3 Cranial nerves: Yes Facial sensation intact/muscles of mastication intact, Yes Equal, round and reactive pupils present, Yes Bilaterally intact EOM present, Yes Nystagmus not present, Yes Normal facial strength present and Yes Midline tongue present Cognition (Neuro): normal cognition Speech: Abnormal speech present Motor exam (neuro): 5/5 motor strength present throughout Psych Mental Status: mental status grossly normal Affect: normal affect Assessment & Plan Assessment & Plan (1) Parkinson's disease: Code(s): G20 - Parkinson's disease Category: Medical (2) Anxiety: Code(s): F41.9 - Anxiety disorder, unspecified Category: Medical (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 will trial on rytary 36/145 3 caps tid D/C Carbidopa/Levodopa 25-100 mg, 2 tab qid and Sinemet 25/100 mg ER qHS. will consider adding rasagiline or increasing ER to bid Increase fluids and continue to use miralax to manage constipation. Continue to do daily exercise. Use urinal at night to prevent falls Home sleep test to reevaluate sleep apnea. ADD MIDODRINE 5mg qama nd after 4 hrs Medications: New midodrine qam and q noon 5 mg PO BID 60 tabs 3RF carbidopa-levodopa 36.25-145 mg ER (Rytary) divide evenly over waking hours 3 caps PO TID 270 caps 3RF Coding Level of Care Code Est Pt Level 4 (08112) Complex EM visit Add On G2211 Diagnoses Parkinson's disease G20 Anxiety F41.9 REM behavioral disorder G47.52 Obstructive sleep apnea G47.33
--- OUTSIDE RECORDS SUMMARY | 2025-05-08 08:50 | XMS_ITS | Encounter Summary ---
Author Organization [facility] Address [address] [place] [address] Care Team Providers Care Steel Erecting Pusher Name Role Phone Miguel Chowdary MD Primary Care Provider Unavailabl e Encounter Details Date Type Department Care Team (Late st Contact Info) Description 12/08/2019 Scanned Document [facility] Heart & Vascular [address] [place] [address] [phone] Rm Francois MD [address] [place] [address] Social History Tobacco Use Types Packs/Day Years [...] on filedocumented in this encounter Care Teams Steel Erecting Pusher Relationship Specialty Start Date End Date Miguel Chowdary MD PCP - General 09/28/19 documented as of this encounter
--- OUTSIDE RECORDS SUMMARY | 2025-05-08 08:50 | XMS_ITS | Encounter Summary ---
Author Organization [facility] Address [address] [place] [address] Care Team Providers Care Environmental Engineering Intern Name Role Phone Miguel Chowdary MD Primary Care Provider Unavailabl e Encounter Details Date Type Department Care Team (Late st Contact Info) Description 12/08/2019 Scanned Document [facility] Heart & Vascular [address] [place] [address] [phone] Rm Francois MD [address] [place] [address] Social History Tobacco Use Types Packs/Day Years [...] on filedocumented in this encounter Care Teams Environmental Engineering Intern Relationship Specialty Start Date End Date Miguel Chowdary MD PCP - General 09/28/19 documented as of this encounter
--- OUTSIDE RECORDS SUMMARY | 2025-05-08 08:50 | XMS_ITS | Encounter Summary ---
Author Organization [facility] Address [address] [place] [address] Care Team Providers Care Trencher Driver Name Role Phone Miguel Chowdary MD Primary Care Provider Unavailabl e Encounter Details Date Type Department Care Team (Late st Contact Info) Description 01/01/[address] [facility] Heart & Vascular [address] [place] [address] [phone] Rm Francois MD [address] [place] [address] Social History Tobacco Use Types Packs/Day Years [...] on filedocumented in this encounter Care Teams Trencher Driver Relationship Specialty Start Date End Date Miguel Chowdary MD PCP - General 09/28/19 documented as of this encounter
--- OUTSIDE RECORDS SUMMARY | 2025-05-08 08:50 | XMS_ITS | Encounter Summary ---
Author Organization [facility] Address [address] [place] [address] Care Team Providers Care Globe Changer Name Role Phone Miguel Chowdary MD Primary Care Provider Unavailabl e Encounter Details Date Type Department Care Team (Late st Contact Info) Description 11/22/2019 Scanned Document [facility] Heart & Vascular [address] [place] [address] [phone] Rm Francois MD [address] [place] [address] Social History Tobacco Use Types Packs/Day Years [...] on filedocumented in this encounter Care Teams Globe Changer Relationship Specialty Start Date End Date Miguel Chowdary MD PCP - General 09/28/19 documented as of this encounter
--- OUTSIDE RECORDS SUMMARY | 2025-05-08 08:50 | XMS_ITS | Encounter Summary ---
Author Organization [facility] Address [address] [place] [address] Care Team Providers Care Lens Engraver Name Role Phone Miguel Chowdary MD Primary Care Provider Unavailabl e Encounter Details Date Type Department Care Team (Late st Contact Info) Description 01/01/2020 Scanned Document [facility] Heart & Vascular [address] [place] [address] [phone] Rm Francois MD [address] [place] [address] Social History Tobacco Use Types Packs/Day Years [...] on filedocumented in this encounter Care Teams Lens Engraver Relationship Specialty Start Date End Date Miguel Chowdary MD PCP - General 09/28/19 documented as of this encounter
--- OUTSIDE RECORDS SUMMARY | 2025-05-08 08:50 | XMS_ITS | Encounter Summary ---
Author Organization [facility] Address [address] [place] [address] Care Team Providers Care Case Manager Specialist Name Role Phone Miguel Chowdary MD Primary Care Provider Unavailabl e Encounter Details Date Type Department Care Team (Late st Contact Info) Description 12/08/2019 Scanned Document [facility] Heart & Vascular [address] [place] [address] [phone] Rm Francois MD [address] [place] [address] Social History Tobacco Use Types Packs/Day Years [...] on filedocumented in this encounter Care Teams Case Manager Specialist Relationship Specialty Start Date End Date Miguel Chowdary MD PCP - General 09/28/19 documented as of this encounter
--- OUTSIDE RECORDS SUMMARY | 2025-05-08 08:52 | XMS_ITS | Encounter Summary ---
Author Organization [facility] Address [address] [place] [address] Care Team Providers Care Concrete Curer Name Role Phone Miguel Chowdary MD Primary Care Provider Unavailabl e Encounter Details Date Type Department Care Team (Late st Contact Info) Description 10/10/2019 Scanned Document [facility] EXTERNAL DATA DEPARTMENT [address] [address] Social History Tobacco Use Types Packs/Day Years [...] on filedocumented in this encounter Care Teams Concrete Curer Relationship Specialty Start Date End Date Miguel Chowdary MD PCP - General 09/28/19 documented as of this encounter
--- OUTSIDE RECORDS SUMMARY | 2025-05-08 08:52 | XMS_ITS | Encounter Summary ---
Author Organization [facility] Address [address] [place] [address] Care Team Providers Care Senior Database Engineer Name Role Phone Miguel Chowdary MD Primary Care Provider Unavailabl e Reason for Visit * Reason Comments Results Request Encounter Details Date Type Department Care Team (Late st Contact Info) Description 11/10/2019 Telephone [facility] Heart & Vascular [place] [address] [place] [address] [phone] Rm Francois MD [address] [facility] [address] [place] [address] Results Request Social History Tobacco Use Types [...] he would like to ask. PLS call [phone] when you have a chance, thank you documented in this encounter Plan of Treatment Not on file documented as of this encounter Visit Diagnoses Not on filedocumented in this encounter Care Teams Senior Database Engineer Relationship Specialty Start Date End Date Miguel Chowdary MD PCP - General 09/28/19 documented as of this encounter
--- OUTSIDE RECORDS SUMMARY | 2025-05-08 08:52 | XMS_ITS | Encounter Summary ---
Author Organization [facility] Address [address] [place] [address] Care Team Providers Care Singing Telegram Performer Name Role Phone Miguel Chowdary MD Primary Care Provider Unavailabl e Encounter Details Date Type Department Care Team (Late st Contact Info) Description 10/10/2019 Scanned Document [facility] EXTERNAL DATA DEPARTMENT [address] [address] Social History Tobacco Use Types Packs/Day Years [...] on filedocumented in this encounter Care Teams Singing Telegram Performer Relationship Specialty Start Date End Date Miguel Chowdary MD PCP - General 09/28/19 documented as of this encounter
--- OUTSIDE RECORDS SUMMARY | 2025-05-08 08:52 | XMS_ITS | Encounter Summary ---
Author Organization [facility] Address [address] [place] [address] Care Team Providers Care Unloader Name Role Phone Miguel Chowdary MD Primary Care Provider Unavailabl e Encounter Details Date Type Department Care Team (Late st Contact Info) Description 11/13/2019 Telephone [facility] Heart & Vascular [address] [place] [address] [phone] Rm Francois MD [address] [place] [address] Social History Tobacco Use Types Packs/Day Years [...] I called and spoke to Kenyetta from [facility] and contacted [facility] about getting the records and they are working on it! Patient callback # is his 's cell phone # [phone]. Thank you . documented in this encounter Plan of Treatment Not on file documented as of this encounter Visit Diagnoses Not on filedocumented in this encounter Care Teams Unloader Relationship Specialty Start Date End Date Miguel Chowdary MD PCP - General 09/28/19 documented as of this encounter
--- OUTSIDE RECORDS SUMMARY | 2025-05-08 08:52 | XMS_ITS | Encounter Summary ---
Author Organization [facility] Address [address] [place] [address] Care Team Providers Care Food Bagging Machine Operator Name Role Phone Miguel Chowdary MD Primary Care Provider Unavailabl e Reason for Visit * Reason Comments Blood Pressure Check Encounter Details Date Type Department Care Team (Late st Contact Info) Description 10/20/2019 Telephone [facility] Heart & Vascular [place] [address] [place] [phone] Rm Francois MD [address] [facility] [address] [place] [address] Blood Pressure Check Social History Tobacco Use [...] talk to GR. Gonzalez call back# is [phone]. Thank you , AM 10/20/2019 * Telephone Encounter - Mar Gibbs - 10/20/2019 9:18 AM EDT This patient had a televisit on 10/15. He said that upon his visit he was told to keep a record of his BP. He called with concern because his BP is dropping. Wednesday his reading was 102/62 and today BP is 87/53. A good callback # is [phone] thank you. AM 10/20/2019. documented in this encounter Plan of Treatment Not on file documented as of this encounter Visit Diagnoses Not on filedocumented in this encounter Care Teams Food Bagging Machine Operator Relationship Specialty Start Date End Date Miguel Chowdary MD PCP - General 09/28/19 documented as of this encounter
--- OUTSIDE RECORDS SUMMARY | 2025-05-08 08:52 | XMS_ITS | Encounter Summary ---
Author Organization [facility] Address [address] [place] [address] Care Team Providers Care Door Closer Mechanic Name Role Phone Miguel Chowdary MD Primary Care Provider Unavailabl e Encounter Details Date Type Department Care Team (Late st Contact Info) Description 10/10/2019 Scanned Document [facility] EXTERNAL DATA DEPARTMENT [address] [address] Social History Tobacco Use Types Packs/Day Years [...] on filedocumented in this encounter Care Teams Door Closer Mechanic Relationship Specialty Start Date End Date Miguel Chowdary MD PCP - General 09/28/19 documented as of this encounter
--- OUTSIDE RECORDS SUMMARY | 2025-05-08 08:52 | XMS_ITS | Encounter Summary ---
Author Organization [facility] Address [address] [place] [address] Care Team Providers Care Fur Repair Inspector Name Role Phone Miguel Chowdary MD Primary Care Provider Unavailabl e Encounter Details Date Type Department Care Team (Late st Contact Info) Description 10/30/2019 Telephone [facility] Heart & Vascular [address] [place] [address] [phone] Rm Francois MD [address] [place] [address] Social History Tobacco Use Types Packs/Day Years [...] not booked until November 07, 2019 @the [place] office. Pt needs an extended disability note for after the stress test until Gr reviews the testing. A good call back # is his cell phone = [phone] ([place]) Thank you, Mar Gibbs documented in this encounter Plan of Treatment Not on file documented as of this encounter Visit Diagnoses Not on filedocumented in this encounter Care Teams Fur Repair Inspector Relationship Specialty Start Date End Date Miguel Chowdary MD PCP - General 09/28/19 documented as of this encounter
--- OUTSIDE RECORDS SUMMARY | 2025-05-08 08:52 | XMS_ITS | Clinical Summary ---
Author Organization [facility] Address [address] [place] [address] Care Team Providers Care C Architect Name Role Phone Miguel Chowdary MD Primary Care Provider Unavailabl e Allergies No known active allergies Medications nitroglycerin (NITROSTAT) 0.[address] 0.3 mg under the tongue every 5 (five) minutes as needed. Active lisinopril (PRINIVIL,ZeSTRIL) 5 MG tabletIndications:C oronary artery disease involving ely shoshone coronary artery of ely shoshone heart without angina pectoris Take 1 tablet (5 mg total) by mouth daily. 90 tablet 3 0 Active atorvastatin (LIPITOR) 40 MG tabletIndications:C oronary artery disease involving ely shoshone coronary artery of ely shoshone heart without angina pectoris Take 1 tablet (40 mg total) by mouth daily. 90 tablet 3 0 Active BRILINTA 90 MG tabletIndications:C oronary artery disease involving ely shoshone coronary artery of ely shoshone heart without angina pectoris Take 1 tablet (90 mg total) by mouth 2 (two) times a day. 180 tablet 3 0 Active aspirin enteric coated (aspirin enteric coated) 81 MG EC tabletIndications:C oronary artery disease involving ely shoshone coronary artery of ely shoshone heart without angina pectoris Take 1 tablet (81 mg total) by mouth daily. 90 tablet 3 0 Active metoPROLOL SUCCINATE (TOPROL-XL) 25 MG 24 hr tabletIndications:I schemic cardiomyopathy Take 1 tablet (25 mg total) by mouth daily. 90 tablet 3 0 Active Family History Medical History Relation Name [...] Health Maintenance Due Date Last Done Comments Advance Care Planning 1955 Hepatitis C Virus Screening 1955 DTaP/Tdap/Td Vaccines (1 - Tdap) 1974 Colonoscopy 2000 Pneumococcal Vaccines 50+ (1 of 1 - PCV) 2005 RSV Vaccine 50 years and old er and Patients (1 - Risk 50-74 years 1-dose series) 2005 Zoster (Shingles) Vaccine (1 of 2) 2005 Influenza Vaccine 02/02/2025 COVID-19 Vaccine (1 - 2023-2 5 season) 2025 Hepatitis B Vaccines Aged Out No long er eligible based on patient's age to complete this topic Insurance [facility] Care Teams C Architect Relationship Specialty Start Date End Date Miguel Chowdary MD PCP - General 09/28/19
--- OUTSIDE RECORDS SUMMARY | 2025-05-08 08:52 | XMS_ITS | Encounter Summary ---
Author Organization [facility] Address [address] [place] [address] Care Team Providers Care Platen Press Feeder Name Role Phone Miguel Chowdary MD Primary Care Provider [phone] Encounter Details Date Type Department Care Team (Late st Contact Info) Description 04/13/2025 Results Follow-Up [facility] [address] [place] [address] [address] [place] [phone] Eliz Nolasco NP [address] [place] [address] [address] [place] [phone] Social History Tobacco Use Types Packs/Day Years [...] care for your loved ones. For example, maternal child nurse or elderly care for an older adult? [...] Date Recorded What is your living situation? Unrecognized valu e 06/22/2024 Interpersonal Safety Answer Date Record ed Physical Abuse Unrecognized value 06/08/2024 Verbal Abuse Unrecognized value 06/08/2024 Sex and Gender Information Value Date Recorded Sex Assigned at Not on file Legal Sex Male 5:29 AM EST Gender Identity Not on file Sexual Orientation Not on file documented as of this encounter Progress Notes * Eliz Nolasco NP - 04/13/2025 11:00 AM EDT Will defer to Dr. Amanda regarding this echo measurement question * Danette Burciaga RN - 04/13/2025 10:21 AM EDT I spoke to Hilda- she called earlier today wanting to discuss abnormal findings from Echo. She read about elevated Ewave online and reported she would like to know more about it; stated she does not want the patient to have a heart attack. Hilda stated the patient does not have chest pain, but he sleeps a lot, get swollen ankles, mentioned his diagnosis of Parkinsons. I reassured her of stable left ventricle function, but she would like to know more about elevated Ewave and what that could mean for the patient. documented in this encounter Plan of Treatment Upcoming Encounters Date Type Department Care Team (Late st Contact Info) Description 10/02/2025 9:30 AM EDT Office Visit Adult Medicine [facility] [address] [place] [phone] Miguel Chowdary MD [address] [place] [phone] documented as of this encounter Visit Diagnoses Not on filedocumented in this encounter Additional Health Concerns Assessment Noted Time PHQ-9 Depression Total Score: 0 06/22/20 24 6:18 PM EST documented as of this encounter Care Teams Platen Press Feeder Relationship Specialty Start Date End Date Miguel Chowdary MD [address] [place] [id number] PCP - General Internal Medicine 01/24/19 documented as of this encounter
--- OUTSIDE RECORDS SUMMARY | 2025-05-08 08:52 | XMS_ITS | Clinical Summary ---
Author Organization 175 [facility] Address [address] [place] [address] Phone Care Team Providers Care Riding Coach Name Role Phone Miguel Chowdary MD Primary Care Provider [phone] Allergies Active Allergy Reactions Criticality Noted Date [...] SKIN EVERY 14 DAYS 6 mL 1 5 Active Active Problems Problem Noted Date Diagnosed Date Elevated PSA 04/03/2025 Overview (04/03/2025): Follow-up with the urology Assessment & Plan (04/03/2025 2:53 PM EDT): Abnormal TSH 06/29/2024 Spinal stenosis of lumbar region with radiculopa thy 05/16/2024 Assessment & Plan (05/16/2024 10:56 AM EST): I reviewed the imaging findings in detail with Mr. Brian and his using a spine model. He [...] failure with p reserved ejection fraction (HFpEF) ([facility] V24, [facility] V28) 10/08/2023 Anxiety 12/21/2022 Assessment & Plan (04/03/2025 2:53 PM EDT): Parkinson disease ([facility] V24, [facility] V28) Overview (04/19/2024): Somewhat complex picture with multiple components including anxiety, REM phase sleep disorder, please see consultation note by neurology, Dr. Ahumada, 11/13/22 Assessment & Plan (04/03/2025 2:53 PM EDT): Primary insomnia 12/21/2022 Assessment & Plan (04/03/2025 2:53 PM EDT): Primary hypertension 02/13/2022 Assessment & Plan (04/03/2025 2:53 PM EDT): Assessment & Plan (02/05/2025 10:26 AM EDT): Blood pressure is under excellent control, 106/60, continue on current antihypertensive medication regimen. I have reviewed with the patient the importance of a heart healthy lifestyle which includes eating a low-fat low-salt diet, getting regular exercise, maintaining a healthy weight, not smoking, and following up with routine medical care. STEMI involving right ba ry artery (CMS/[facility] V24, CMS/HCC V28) 02/13/2022 Bilateral carotid artery stenosis 05/20/2021 Diverticulosis 04/05/2020 Overview (04/19/2024): Incidental finding 2006 CN- Repeat 10 yrs Ischemic cardiomyopathy 04/05/2020 Overview (04/19/2024): 09/2019 EF 45-55% Mixed hyperlipidemia 04/05/2020 Assessment & Plan (04/03/2025 2:53 PM EDT): Assessment & Plan (02/05/2025 10:26 AM EDT): LDL cholesterol from January 2024 showing an LDL level of 53. Continue on Repatha. He is within goal range of less than 70. Peyronie's disease 04/05/2020 Assessment & Plan (04/03/2025 11:54 AM EDT): Coronary artery disease invo lving [place] coronary artery of [place] heart without angina pectoris 12/21/2019 Overview (04/19/2024): STEMI 09/2019 s/p stent to distal RCA Assessment & Plan (04/03/2025 11:54 AM EDT): Assessment & Plan (02/05/2025 10:26 AM EDT): Patient with a history of CAD. Continues on aspirin and Repatha. Denies any exertional symptoms. Patient advised to seek emergency medical attention by calling 911 if they were to develop severe dyspnea, chest pain that did not resolve with rest or nitroglycerin, or if they were to faint. Orders: Transthoracic echocardiogram (TTE) complete with PRN contrast, bubble, strain, and 3D order panel; Future perflutren lipid microsphere (DEFINITY) 1.3 mL in sodium chloride 0.9% 8.7 mL injection BPH (benign prostatic hyperplasia) 08/31/2014 Nephrolithiasis 07/31/2008 Overview (04/19/2024): 2008; Dr. Taye Monsalve Allergic rhinitis 07/28/2005 Overview (04/19/2024): deviated septum seen by ENT & opted to forgo surgery Encounters Date Type Department Care Team Description 04/13/2025 Results Follow-Up [facility] [address] [place] [address] Eliz Nolasco NP 04/13/2025 Telephone [facility] [address] [place] [address] Eliz Nolasco NP 04/11/2025 11:00 AM EDT Ancillary Procedure [facility] [address] [place] [id number] Leg swelling; Coronary artery disease involving [place] coronary artery of [place] heart without angina pectoris; Ischemic cardiomyopathy 04/03/2025 11:15 AM EDT Office Visit Adult Medicine [address] [phone] Miguel Chowdary MD Routine general medical examination at a health care facility (Primary Dx); Peyronie's disease; Coronary artery disease involving [place] coronary artery of [place] heart without angina pectoris; Mixed hyperlipidemia; Anxiety; Parkinson's disease, unspecified whether dyskinesia present, unspecified whether manifestations fluctuate (CMS/HCC V24, CMS/HCC V28); Primary hypertension; Primary insomnia; Elevated PSA 03/28/2025 Telephone Adult Medicine [address] [phone] Tess Cortes NP 02/13/[address] [facility] [address] [place] [address] Alberto Amanda MD 02/05/2025 9:10 AM EDT Office Visit [facility] [address] [place] [address] Eliz Nolasco NP Coronary artery disease involving [place] coronary artery of [place] heart without angina pectoris (Primary Dx); Leg swelling; Mixed hyperlipidemia; Primary hypertension; Bilateral carotid artery stenosis; Ischemic cardiomyopathy from Last 3 Months Immunizations Immunization Administration Dates Next Due Influenza Quadravalent, MDCK , 0.5ml, preservative free (Flucelvax) 6mo and older 04/21/2023,03/19/2020 Influenza trivalent, 0.5mL ( Fluad) 65yo and older 06/22/2022,07/21/2021 Pfizer SARS-CoV-2 COVID-19, mRNA, LNP-S, preservative free 07/15/2021,09/11/2020,08/22/2020 Pneumococcal conjugate 20 va lent (Prevnar 20, PCV 20) 2mo and older 01/20/2024 Tdap Tetanus diptheria acell ular pertussis (Boostrix; Adacel) 7yo and older 11/01/2024,08/31/2014 Surgical History Surgery Date Site/Laterality Comments TONSILLECTOMY childhood PROCEDURE: HISTORICAL TONSILLECTOMY OTHER SURGICAL HISTORY PROCEDURE: NM REPAIR PRIMARY OPEN/PRQ RUPTURED ACHILLES TENDON ANGIOPLASTY 09/2019 PROCEDURE: HISTORICAL ANGIOPLASTY W/STENT; COMMENT: EMMA of mid RCA with Xience 3.5 x 18mm stent performed dy Dr. Francois @ [facility] COLONOSCOPY 08/11/2006 PROCEDURE: HISTORICAL COLONOSCOPY; COMMENT: Diverticulosis, [...] DX: History of actinic keratoses Myocardial infarction ([facility] V24, [facility] V28) CHF (congestive heart failur e) ([facility] V24, [facility] V28) Parkinson's disease ([facility] V24, [facility] V28) 2019 Family History Medical History Relation [...] for your loved ones. For example, child nutrition manager or elderly care for an older adult? [...] Sign Reading Time Taken Comments Blood Pressure 103/67 04/11/2025 12:28 PM EDT Pulse 55 04/03/2025 11:31 AM EDT Temperature 36.3 C (97.3 F) 04/03/2025 11:31 AM EDT Respiratory Rate 12 04/03/2025 11:31 AM EDT Oxygen Saturation 95% 11/01/2024 1:54 PM EDT Inhaled Oxygen Concentration - - Weight 70.8 kg (156 lb) 04/11/2025 12:28 PM EDT Height 175.3 cm (5' 9 ) 04/11/2025 12:28 PM EDT Body Mass Index 23.04 04/11/2025 12:28 PM EDT Plan of Treatment Upcoming Encounters Date Type Department Care Team (Late st Contact Info) Description 10/02/2025 9:30 AM EDT Office Visit Adult Medicine [address] [phone] Miguel Chowdary MD [address] [place] [address] Health Maintenance Due Date Last Done Comments Zoster Vaccines (1 of 2) 1974 Depression Screening 07/05/2024 06/22/2024 Influenza Vaccine (#1) 2025 , 06/22/2022, 07/21/2021, Additional history exists Social Influencers of Health Screening 06/22/2025 06/22/2024 Falls Risk Assessment 06/29/2025 06/29/2024 , 06/08/2024, 01/20/2024 Hypertension/CHF/CAD Annual BMP Blood Test 03/27/2026 03/27/2025, 10/27/2024, 04/04/2024, Additional history exists Medicare Annual Wellness Visit 04/03/2026 04/03/2025 Colorectal Cancer Screening: Colonoscopy 10/29/2026 10/29/2021 Cholesterol Screening (Lipid Panel) 03/27/2030 03/27/2025, 01/20/2024, 01/20/2024 RSV Immunization Adult Patients (1 - 1-dose 75+ series) 2030 DTaP,Tdap,and Td Vaccines (3 - Td or Tdap) 11/01/2034 11/01/2024, 08/31/2014 Hepatitis C Screening Completed 04/05/2020 Abdominal Aortic Aneurysm (AAA) Screen Discontinued 06/26/2021 COVID-19 Vaccine Discontinued 07/15/2021, 04/2021, 08/22/2020 Pneumococcal [...] Procedure Name Priority Date/Time Associated Diagnosis Comments TRANSTHORACIC ECHOCARDIOGRAM (TTE) COMPLETE Routine 04/11/2025 11:39 AM EDT Leg swelling Coronary artery disease involving [place] coronary artery of [place] heart without angina pectoris Ischemic cardiomyopathy TRIIODOTHYRONINE FREE Routine 03/27/2025 10:41 AM EDT Anxiety Coronary artery disease involving [place] coronary artery of [place] heart without angina pectoris Parkinson's disease, unspecified whether dyskinesia present, unspecified whether manifestations fluctuate (CMS/HCC V24, CMS/HCC V28) Abnormal TSH FREE THYROXINE WITH REFLEX TO FREE TRIIODOTHYRONINE Routine 03/27/2025 10:41 AM EDT Anxiety Coronary artery disease involving [place] coronary artery of [place] heart without angina pectoris Parkinson's disease, unspecified whether dyskinesia present, unspecified whether manifestations fluctuate (CMS/HCC V24, CMS/HCC V28) Abnormal TSH THYROID STIMULATING HORMONE WITH REFLEX TO FREE T4 AND FREE T3 Routine 03/27/2025 10:41 AM EDT Anxiety Coronary artery disease involving [place] coronary artery of [place] heart without angina pectoris Parkinson's disease, unspecified whether dyskinesia present, unspecified whether manifestations fluctuate (CMS/HCC V24, CMS/HCC V28) Abnormal TSH LIPID PANEL WITH REFLEX TO DIRECT LDL Routine 03/27/2025 10:41 AM EDT Encounter for screening for cardiovascular disorders BASIC METABOLIC PANEL Routine 03/27/2025 10:41 AM EDT Pericardial pain Chronic heart failure with preserved ejection fraction (HFpEF) (CMS/HCC V24, CMS/HCC V28) Mixed hyperlipidemia Encounter for examination following treatment at hospital Need for tetanus, diphtheria, and acellular pertussis (Tdap) vaccine Encounter for screening for cardiovascular disorders ECG 12-LEAD Routine 02/05/2025 10:26 AM EDT Bilateral carotid artery stenosis FALLS RISK ASSESSMENT Routine 01/20/2024 COLONOSCOPY Routine 10/29/2021 HEPATITIS C SCREENING Routine 04/05/2020 from Last 3 Months or Most Recently Relevant to Health Maintenance Results * (ABNORMAL) TRANSTHORACIC ECHOCARDIOGRAM (TTE) COMPLETE (04/11/2025 11:39 AM EDT) Left Atrium Minor [place] 6.0 cm CV PACS Left Atrium Major [place] 5.2 cm CV PACS LA Area Sys (A2C) 20 cm2 CV PACS LA Area Sys (A4C) 15 cm2 CV PACS LA Volume (BP) 45 mL CV PACS RA Area 16.4 cm2 CV PACS RA 2D Volume 41 mL CV PACS AV Mean Gradient 2 mmHg CV PACS AV Mean Gradient 2 mmHg CV PACS Ao VTI 24.8 cm CV PACS AV Peak Ubaldo 1.0 m/s CV PACS AV Peak Gradient 4 mmHg CV PACS AV Area Continuity Equation 3.1 cm2 CV PACS AV Area Peak Velocity 3.4 cm2 CV PACS Aortic Root 3.7 cm CV PACS Ascending Aorta 3.4 cm CV PACS IVC Proximal 1.7 cm CV PACS IVSD 0.8 0.6 - 1.0 cm CV PACS LVIDD 5.3 4.2 - 5.8 cm CV PACS LVIDS 3.5 2.5 - 4.0 cm CV PACS LVOT Diameter 2.2 cm CV PACS LVOT Mean Grad 2 mmHg CV PACS LVOT Peak VTI 20.5 cm CV PACS LVOT Mean Ubaldo 0.6 m/s CV PACS LVOT Peak Ubaldo 0.9 m/s CV PACS LVOT Peak Gradient 3 mmHg CV PACS LVPWD 0.7 0.6 - 1.0 cm CV PACS MV E' Tissue Velocity Lateral 13 cm/s CV PACS MV E' Tissue Velocity Septal 7 cm/s CV PACS LVOT Area 3.8 cm2 CV PACS LVOT Stroke Volume 78 mL CV PACS E Wave Deceleration Time 261(A) 119 - 242 ms CV PACS MV Peak A Ubaldo 0.56 m/s CV PACS MV Peak E Ubaldo 0.68 m/s CV PACS PV Acceleration Time 81 ms CV PACS PV Acceleration Time 81 ms CV PACS RV Diastolic Basal Dimension 3.6 2.5 - 4.1 cm CV PACS RV S' 11 cm/s CV PACS TAPSE 21 mm CV PACS TR Peak Velocity 2.54 m/s CV PACS TR Peak Gradient 26 mmHg CV PACS E/E' Ratio Septal 10 CV PACS E/E' Ratio Averaged 7 CV PACS Relative Wall Thickness ratio 0.26 CV PACS LVOT:AV VTI Index 0.83 CV PACS FS 34 % CV PACS LV Mass 2D 138 g CV PACS LVOT flow 228 mL/s CV PACS AV Velocity Ratio 0.90 CV PACS E/A Ratio 1.2 CV PACS E/E' Ratio Lateral 5 CV PACS BSA 1.86 m2 CV PACS LA Volume Index (BP) 24 mL/m2 CV PACS LVIDD Index 2.85 cm/m2 CV PACS LVIDS Index 1.88 cm/m2 CV PACS LV Mass Index 2D 74 50 - 102 g/m2 CV PACS LVOT Stroke Index 42 mL/m2 CV PACS RA 2D Volume Index 22 18 - 32 mL/m2 CV PACS YOHANA Index (VTI) 1.69 cm2/m2 CV PACS YOHANA Index (Pk Ubaldo) 1.83 cm2/m2 CV PACS Aortic Root Index 1.99 cm/m2 CV PACS Ascending Aorta Index 1.83 cm/m2 CV PACS Right Ventricular Peak Systolic Pressure 29 mmHg CV PACS Est. RA Pressure 3 mmHg CV PACS Anatomical Region Laterality Modality Ultrasound Narrative 04/12/2025 4:35 PM EDT Left Ventricle: Left ventricle cavity size is normal. Wall thickness is normal. Systolic function is normal with an ejection fraction of 55-60%. There are no regional LV wall motion abnormalities. There is no diastolic dysfunction. Left Atrium: Left atrium volume index is normal. Right Ventricle: Right ventricle cavity appears normal. Systolic function is normal. Normal TAPSE (> 17 mm). Right Atrium: Right atrium cavity is normal. Mitral Valve: There is trace regurgitation. Aortic Valve: There is no regurgitation or stenosis. Left Ventricle Left ventricle cavity size is normal. Wall thickness is normal. Systolic function is normal with an ejection fraction of 55-60%. There are no regional LV wall motion abnormalities. There is no diastolic dysfunction. Right Ventricle Right ventricle cavity appears normal. Systolic function is normal. Normal TAPSE (> 17 mm). Left Atrium Left atrium volume index is normal. Right Atrium Right atrium cavity is normal. IVC/SVC Inferior vena cava structure is normal. RA pressures is estimated to be 3 mmHg (IVC diameter <21 mm and decreases >50% during inspiration). Mitral Valve Mitral valve structure is normal. The leaflets are not thickened. There is trace regurgitation. There is no evidence of mitral valve stenosis. Tricuspid Valve Tricuspid valve structure is normal. There is mild regurgitation. There is no evidence of tricuspid valve stenosis. Aortic Valve The aortic valve is trileaflet. There is no regurgitation or stenosis. Pulmonic Valve Visualized portions of the pulmonic valve appear normal. There is no regurgitation or stenosis. Ascending Aorta The aorta appears normal in size. Pericardium Pericardium appears normal. There is no pericardial effusion. Study Details Overall the study quality was adequate. Study was difficult due to: patient body habitus. Eliz Nolasco NP CV ECHO PROCEDURES Final Resul t * (ABNORMAL) Thyroid stimulating hormone with reflex to free t4 and free t3 (03/27/2025 10:41 AM EDT) TSH 4.45(H) 0.40 - 4.00 mcIU/mL LAB CHEMISTRY METHOD 03/27/2025 4:26 PM EDT [facility] Blood Venous blood specimen / Unknown Venipuncture / Unknown 03/27/2025 10:41 AM EDT 03/27/2025 10:41 AM EDT us Miguel Chowdray MD LAB BLOOD ORDERABLES Final Resul t [facility] [address] [place] [address], [place] [phone] * Free thyroxine with reflex to free triiodothyronine (03/27/2025 10:41 AM EDT) Free T4 1.18 0.70 - 1.80 ng/dL LAB CHEMISTRY METHOD 03/27/2025 5:07 PM EDT [facility] Blood Venous blood specimen / Unknown Venipuncture / Unknown 03/27/2025 10:41 AM EDT 03/27/2025 10:41 AM EDT Miguel Chowdary MD LAB BLOOD ORDERABLES Final Resul t [facility] [address] [place] [address], [place] [phone] * Lipid panel with reflex to direct LDL (03/27/2025 10:41 AM EDT) Cholesterol 142 0 - 200 mg/dL LAB CHEMISTRY METHOD [facility] Triglycerides 49 0 - 150 mg/dL LAB CHEMISTRY METHOD 03/27/2025 3:45 PM EDT [facility] HDL 74 >=40 mg/dL LAB CHEMISTRY METHOD 03/27/2025 3:45 PM T [facility] LDL Calculated 58 0 - 100 mg/dL LAB CHEMISTRY METHOD 03/27/2025 3:45 PM T [facility] Comment:Estimated LDL Calcul ated using equation: Total cholesterol - HDL cholesterol - (Triglycerides/5) VLDL Cholesterol Kanu 9.8 mg/dL LAB CHEMISTRY METHOD 03/27/2025 3:45 PM T [facility] Non HDL Chol. (LDL+VLDL) 68 <145 mg/dL LAB CHEMISTRY METHOD 03/27[facility]2025 3[facility] Chol/HDL Ratio 1.9 0.0 - 4.4 LAB CHEMISTRY METHOD 03/27/2025 3:45 PM [facility] Blood Venous blood specimen / Unknown Venipuncture / Unknown 03/27/2025 10:41 AM EDT 03/27/2025 10:41 AM EDT Tess Cortes NP LAB BLOOD ORDERABLES Final R esult Performing Organization Address [facility]/ZIP Co de Phone Number [facility] [address] [place] [address], [place] [phone] * Triiodothyronine free (03/27/2025 10:41 AM EDT) T3, Free 360 230 - 420 pcg/dL LAB CHEMISTRY METHOD 03/27/2025 5:49 PM EDT [facility] Blood Venous blood specimen / Unknown Venipuncture / Unknown 03/27/2025 10:41 AM EDT 03/27/2025 10:41 AM EDT Miguel Chowdary MD LAB BLOOD ORDERABLES Final Resul t Performing Organization Address City/[facility]/ZIP Co de Phone Number [facility] [address] [place] [address], [place] [phone] * Basic metabolic panel (03/27/2025 10:41 AM EDT) Pathologist [facility] Sodium 138 133 - 145 mmol/L LAB CHEMISTRY METHOD 03/27/2025 3:43 PM EDT [facility] Potassium 4.4 3.5 - 5.5 mmol/L LAB CHEMISTRY METHOD 03/27/2025 3:43 PM EDT [facility] Chloride 105 96 - 110 mmol/L LAB CHEMISTRY METHOD 03/27/2025 3:43 PM EDT [facility] CO2 30 21 - 32 mmol/L LAB CHEMISTRY METHOD 03/27/2025 3:43 PM EDT [facility] Anion Gap 3 3 - 11 LAB CHEMISTRY METHOD 03/27/2025 3:43 PM EDT [facility] Glucose 94 70 - 100 mg/dL LAB CHEMISTRY METHOD 03/27/2025 3:43 PM EDT [facility] BUN 18 5 - 25 mg/dL LAB CHEMISTRY METHOD 03/27/2025 3:43 PM EDT [facility] Creatinine 0.86 0.70 - 1.30 mg/dL LAB CHEMISTRY METHOD 03/27/2025 3:43 PM EDT [facility] eGFR 94 >=60 mL/min/1. 73m2 LAB CHEMISTRY METHOD 03/27/2025 3:43 PM EDT [facility] Comment:Calculation based on the Chronic Kidney Disease Epidemiology Collaboration (CKD-EPI) equation refit without adjustment for race. BUN/Creatinine Ratio 20.9 LAB CHEMISTRY METHOD 03/27/2025 3:43 PM EDT [facility] Calcium 8.7 8.5 - 10.5 mg/dL LAB CHEMISTRY METHOD 03/27/2025 3:43 PM EDT [facility] Blood Venous blood specimen / Unknown Venipuncture / Unknown 03/27/2025 10:41 AM EDT 03/27/2025 10:41 AM EDT Tess Cortes OPERATIONS PROJECT MANAGER LAB BLOOD ORDERABLES Final R esult [facility] [address] [place] [address], * ECG 12 lead (02/05/2025 10:26 AM EDT) 02/05/2025 9:09 AM EDT us Eliz Nolasco OPERATIONS PROJECT MANAGER ECG ORDERABLES Final Result GEMUSE * Falls Risk Assessment (01/20/2024) Falls Risk Assessment abstracted us Historical Provider HEALTH MAINTENANCE Final Result * Colonoscopy (10/29/2021) Pathologist Counts include [facility] beds at the [facility] Colonoscopy no interpreta tion,abstr acted Anatomical Region Laterality Modality Other us Historical Provider HEALTH MAINTENANCE Final Result * Hepatitis C Screening (04/05/2020) [facility] Hepatitis C Screening abstracted Historical Provider HEALTH MAINTENANCE Final Result from Last 3 Months or Most Recently Relevant to Health Maintenance Insurance MEDICARE [facility] Care Teams Riding Coach Relationship Specialty Start Date End Date Miguel Chowdary MD [address] [place] [address] PCP - General Internal Medicine 01/24/19
--- OUTSIDE RECORDS SUMMARY | 2025-05-08 08:52 | XMS_ITS | Clinical Summary ---
Author Organization [facility] Address [address] [place] [phone] Phone Care Team Providers Care Fuel Pilot Engineer Name Role Phone Miguel Chowdary MD Primary Care Provider [phone] Social History Tobacco Use Types Packs/Day Years Used Date Smoking Tobacco: Never Assessed Education Answer Date Recorded Are you interested in more education? Not on jeffrey e 10/30/2022 Are you concerned about learning? Not on file 10/30/2022 No 10/30/2022 No 10/30/2022 Digital Access Answer Date Recorded No 11/28/2022 No 11/28/2022 No 11/28/2022 Reliable internet access at home? Not on file 11/28/2022 Device with a working camera? Not on file Sex and Gender Information Value Date Recorded Sex Assigned at Not on file Legal Sex Male 2:06 PM EDT Gender Identity Not on file Sexual [...] Hx and SMOKELESS TOBACCO SCREENING 1968 HEPATITIS C SCREENING 1973 COLOGUARD 2000 COLONOSCOPY 2000 COLORECTAL CANCER SCREENING 2000 FIT TEST 2000 FOBT 2000 SIGMOIDOSCOPY 2000 VIRTUAL COLONOSCOPY 2000 PNEUMOCOCCAL VACCINES (50+ years) (1 of 1 - PCV) 2005 ZOSTER VACCINES (1 of 2) 2005 Adult Td,Tdap Booster 08/31/2024 08/31/2014 INFLUENZA VACCINE (#1) 2025 03/19/2020 COVID-19 VACCINE (3 - 2024-2 6 season) 2025 09/11/2020, 08/22/2020 RSV VACCINE (1 - 1-dose 75+ series) 2030 HEPATITIS A VACCINES Aged Out No long er eligible based on patient's age to complete this topic HIB VACCINES Aged Out No longer eligi ble based on patient's age to complete this topic MENINGOCOCCAL VACCINES (ACWY) Aged Out No longer eligible based on patient's age to complete this topic MENINGOCOCCAL VACCINES (B) Aged Out N o longer eligible based on patient's age to complete this topic Medical Devices Not on file Insurance Care Teams Fuel Pilot Engineer Relationship Specialty Start Date End Date Miguel Chowdary MD [address] [place] [address] PCP - General Internal Medicine 10/26/19 Additional Source Comments The information contained in this document represents components of the legal health record. It is not the complete legal health record.[facility]
--- OUTSIDE RECORDS SUMMARY | 2025-05-08 08:52 | XMS_ITS ---
Author Name [facility] Organization Unknown Care Team Organization Name Specialty Phone Email Start Date End Da te [facility] ACO 02/21/2025 [facility] Chowdary Primary Care 09/09/2022 02/21/2024 [facility] Termed, PROVIDER Primary Care 05/12/202202/02
== END 2025-05-08 09:29 | disposition home or self-care (01) ==
LOC: HO.HSMS 08:28
PROVIDERS: PCP Internal Medicine; Visit Provider Psychiatry & Neurology Neurology
DX: G20.A1 Parkinson's disease without dyskinesia, without mention of fluctuations (principal); F41.9 Anxiety disorder, unspecified; G47.52 REM sleep behavior disorder; G47.33 Obstructive sleep apnea (adult) (pediatric)
CPT/HCPCS: 99214; G2211

== ENCOUNTER → 2025-05-08 08:28 | Outpatient (BNVA) | payer MEDICARE, SELFPAY | PROVIDERS: PCP Internal Medicine; Visit Provider Psychiatry & Neurology Neurology | DX: G47.52 REM sleep behavior disorder (principal); G47.33 Obstructive sleep apnea (adult) (pediatric); G20.C Parkinsonism, unspecified; F41.9 Anxiety disorder, unspecified | CPT/HCPCS: 99212 ==

== ENCOUNTER → 2025-07-04 08:47 | Outpatient (REF) | payer MEDICARE, SELFPAY ==
--- OUTSIDE RECORDS SUMMARY | 2025-07-04 08:52 | XMS_ITS | Encounter Summary ---
Author Organization [facility] Address [address] [place] [address] Care Team Providers Care Manager Strategy & Account Name Role Phone Miguel hCowdary MD Primary Care Provider [phone] Encounter Details Date Type Department Care Team (Late st Contact Info) Description 06/24/2025 Results Follow-Up [facility] [address] [place] [address] Dr [address]anto[address] [place] [address] Eliz Nolasco NP [address] [place] [address] Dr [address] [place] [address] Social History Tobacco Use Types [...] care for your loved ones. For example, childhood teacher or elderly care for an older adult? [...] on file documented as of this encounter Plan of Treatment Upcoming Encounters Date Type Department Care Team (Late st Contact Info) Description 07/13/2025 11:10 AM EST Office Visit [facility] [address] [place] [address] Eliz Nolasco NP [address] [place] [address] Dr [address]ig [address] [place] [phone] 10/02/2025 9:30 AM EDT Office Visit [facility] [place] [address] [place] [address] Miguel Chowdary MD [address] [place] [address] documented as of this encounter Visit Diagnoses Not on filedocumented in this encounter Additional Health Concerns Assessment Noted Time PHQ-9 Depression Total Score: 0 06/22/20 24 6:18 PM EST documented as of this encounter Care Teams Manager Strategy & Account Relationship Specialty Start Date End Date Miguel Chowdary MD [address] [place] [id number] PCP - General Internal Medicine 01/24/19 documented as of this encounter
--- OUTSIDE RECORDS SUMMARY | 2025-07-04 08:52 | XMS_ITS | Encounter Summary ---
Author Organization [facility] Address [address] [place] [address] Care Team Providers Care Ed Teacher Name Role Phone Miguel Chowdary MD Primary Care Provider Unavailabl e Encounter Details Date Type Department Care Team (Late st Contact Info) Description 01/01/2020 Scanned Document [facility] Heart & Vascular [address] [place] [phone] Rm Francois MD [address] [place] [address] Social History Tobacco Use Types Packs/Day Years [...] on filedocumented in this encounter Care Teams Ed Teacher Relationship Specialty Start Date End Date Miguel Chowdary MD PCP - General 09/28/19 documented as of this encounter
--- OUTSIDE RECORDS SUMMARY | 2025-07-04 08:52 | XMS_ITS | Encounter Summary ---
Author Organization [facility] Address [address] [place] [address] Care Team Providers Care Metabolic Specialist Name Role Phone Miguel Chowdary MD Primary Care Provider Unavailabl e Encounter Details Date Type Department Care Team (Late st Contact Info) Description 12/08/2019 Scanned Document [facility] Heart & Vascular [address] [place] [phone] Rm Francois MD [address] [place] [address] Social History Tobacco Use Types Packs/Day Years [...] on filedocumented in this encounter Care Teams Metabolic Specialist Relationship Specialty Start Date End Date Miguel Chowdary MD PCP - General 09/28/19 documented as of this encounter
--- OUTSIDE RECORDS SUMMARY | 2025-07-04 08:52 | XMS_ITS | Encounter Summary ---
Author Organization [facility] Address [address] [place] [address] Care Team Providers Care Bioinformatics Analyst Name Role Phone Miguel Chowdary MD Primary Care Provider Unavailabl e Encounter Details Date Type Department Care Team (Late st Contact Info) Description 10/10/2019 Scanned Document [facility] EXTERNAL DATA DEPARTMENT [address] [address] Social History Tobacco Use Types Packs/Day Years [...] on filedocumented in this encounter Care Teams Bioinformatics Analyst Relationship Specialty Start Date End Date Miguel Chowdary MD PCP - General 09/28/19 documented as of this encounter
--- OUTSIDE RECORDS SUMMARY | 2025-07-04 08:52 | XMS_ITS | Encounter Summary ---
Author Organization [facility] Address [address] [place] [address] Care Team Providers Care Rendering Equipment Tender Name Role Phone Miguel Chowdary MD Primary Care Provider Unavailabl e Encounter Details Date Type Department Care Team (Late st Contact Info) Description 11/22/[address] [facility] Heart & Vascular [address] [place] [phone] Rm Francois MD [address] [place] [address] Social History Tobacco Use Types Packs/Day Years [...] on filedocumented in this encounter Care Teams Rendering Equipment Tender Relationship Specialty Start Date End Date Miguel Chowdary MD PCP - General 09/28/19 documented as of this encounter
--- OUTSIDE RECORDS SUMMARY | 2025-07-04 08:52 | XMS_ITS | Clinical Summary ---
Author Organization [facility] Address [address] [place] [address] Phone Care Team Providers Care Display Designer Name Role Phone Miguel Chowdary MD Primary Care Provider [phone] Social History Tobacco Use Types Packs/Day Years [...] Devices Not on file Insurance Care Teams Display Designer Relationship Specialty Start Date End Date Miguel Chowdary MD [address] [place] [address] PCP - General Internal Medicine 10/26/19 Additional Source Comments The information contained in this document represents components of the legal health record. It is not the complete legal health record.[facility]
--- OUTSIDE RECORDS SUMMARY | 2025-07-04 08:52 | XMS_ITS | Encounter Summary ---
Author Organization [facility] Address [address] [place] [address] Care Team Providers Care Fitness Trainer Name Role Phone Miguel Chowdary MD Primary Care Provider [phone] Encounter Details Date Type Department Care Team (Late st Contact Info) Description 05/28/2025 Results Follow-Up [facility] [address] [place] [address] Dr [address]ja [address] [place] [address] Eliz Nolasco NP [address] [place] [address] Dr [address] [place] [address] Social History Tobacco Use Types [...] for your loved ones. For example, child and adolescent psychologist or elderly care for an older adult? [...] Description 07/13/2025 11:10 AM EST Office Visit [facility] [address] [place] [address] Eliz Nolasco NP [address] [place] [address] Dr [address]ig [address] [place] [phone] 10/02/2025 9:30 AM EDT Office Visit [facility] [place] [address] [place] [address] Miguel Chowdary MD [address] [place] [address] documented as of this encounter Visit Diagnoses Not on filedocumented in this encounter Additional Health Concerns Assessment Noted Time PHQ-9 Depression Total Score: 0 06/22/20 24 6:18 PM EST documented as of this encounter Care Teams Fitness Trainer Relationship Specialty Start Date End Date Miguel Chowdary MD [address] [place] [address] PCP - General Internal Medicine 01/24/19 documented as of this encounter
--- OUTSIDE RECORDS SUMMARY | 2025-07-04 08:52 | XMS_ITS | Clinical Summary ---
Author Organization [facility] Address [address] [place] [address] Phone Care Team Providers Care Caddy/Caddie Supervisor Name Role Phone Miguel Chowdary MD Primary Care Provider [phone] Allergies Active Allergy Reactions Criticality Noted Date Comments Bee Venom Protein (Honey Bee) Swelling High 2010 Medications aspirin 81 mg EC tablet Take 1 tablet (81 mg total) by mouth 1 (one) time each day. OTC Active carbidopa-levodo pa (SINEMET) 25-100 mg per tablet Take 1.5 tablets by mouth 4 (four) times a day. Neurologist prescribed meds Active carbidopa-levodo pa (Rytary) 23.75-95 mg per XR capsule Neurologist prescribed meds Active citalopram (CeleXA) 10 mg tablet Take 1 tablet (10 mg total) by mouth 1 (one) time each day. Neurologist prescribed meds Active clonazePAM (KlonoPIN) 0.5 mg tablet Neurologist prescribed meds Active polyethylene glycol (MIRALAX) 17 gram packet OTC Activ e evolocumab (Repatha SureClick) 140 mg/mL pen injector injection INJECT 1 ML INTO THE SKIN EVERY 14 DAYS 6 mL 1 5 Active fludrocortisone (FLORINEF) 0.1 mg tabletIndication s:Hypotension, unspecified hypotension type Take 1 tablet (0.1 mg total) by mouth 1 (one) time each day. 90 each 2 5 Active Active Problems Problem Noted Date [...] reserved ejection fraction (HFpEF) 10/08/2023 Anxiety 12/21/2022 Assessment & Plan (04/03/2025 2:53 PM EDT): Parkinson disease 12/21/2022 Overview (04/19/2024): Somewhat complex [...] with routine medical care. STEMI involving right coronary artery 02/13/2022 Bilateral [...] AM EDT): Coronary artery disease invo lving circle coronary artery of circle heart without angina pectoris 12/21/2019 Overview (04/19/2024): STEMI 09/2019 s/p stent to distal RCA Assessment & Plan (05/15/2025 10:45 AM EST): Patient with a history of CAD. Continues on aspirin and Repatha. Denies any exertional symptoms. LDL cholesterol from January 2024 showing an LDL level of 53. Continue on Repatha. He is within goal range of less than 70. Assessment & Plan (04/03/2025 11:54 AM EDT): [...] Encounters Date Type Department Care Team Description 06/24/2025 Results Follow-Up [facility] Cardiology [facility] [address] [place] [address] [place] [address] Eliz Nolasco NP 05/29/2025 7:00 AM EST Ancillary Procedure [facility] [address] [place] [phone] Syncope, unspecified syncope type 05/28/2025 Telephone [facility] [address] [place] [facility] [address] [place] [address] Eliz Nolasco NP 05/28/2025 Results Follow-Up [facility] [address] [place] [facility] [address] [place] [address] Eliz Nolasco NP 05/16/2025 Telephone [facility] [address] [place] [facility] [address] [place] [address] Alberto Amanda MD 05/16/2025 Telephone [facility] [address] [place] [facility] [address] [place] [address] Eliz Nolasco NP 05/15/2025 9:10 AM EST Office Visit [facility] Cardiology [facility] [address] [facility] [address] [place] [address] Eliz Nolasco NP Primary hypertension (Primary Dx); Hypotension, unspecified hypotension type; Syncope, unspecified syncope type; Coronary artery disease involving circle coronary artery of circle heart without angina pectoris 05/15/2025 Telephone [facility] [address] [place] [address] Alberto Amanda MD 05/08/2025 Telephone [facility] [address] [place] [facility] [address] [place] [address] Alberto Amanda MD 04/13/2025 Results Follow-Up [facility] [address] [facility] [address] [place] [address] Eliz Nolasco NP 04/13/2025 Telephone [facility] [address] [facility] [address] [place] [address] Eliz Nolasco NP 04/11/2025 11:00 AM EDT Ancillary Procedure [facility] [address] [place] [address] Leg swelling; Coronary artery disease involving circle coronary artery of circle heart without angina pectoris; Ischemic cardiomyopathy 04/03/2025 11:15 AM EDT Office Visit Adult Medicine [address] [phone] Miguel Chowdary MD Routine general medical examination at a health care facility (Primary Dx); Peyronie's disease; Coronary artery disease involving circle coronary artery of circle heart without angina pectoris; Mixed hyperlipidemia; Anxiety; Parkinson's disease, unspecified whether dyskinesia present, unspecified whether manifestations fluctuate (CMS/HCC V24, CMS/HCC V28); Primary hypertension; Primary insomnia; Elevated PSA from Last 3 Months Immunizations Immunization Administration [...] PROCEDURE: HISTORICAL TONSILLECTOMY OTHER SURGICAL HISTORY PROCEDURE: MT REPAIR PRIMARY OPEN/PRQ RUPTURED ACHILLES TENDON ANGIOPLASTY 09/2019 PROCEDURE: HISTORICAL ANGIOPLASTY W/STENT; COMMENT: [facility] of mid RCA with Xience 3.5 x 18mm stent performed dy Dr. Francois @ [facility] COLONOSCOPY 08/11/2006 PROCEDURE: HISTORICAL COLONOSCOPY; COMMENT: Diverticulosis, [...] CMS/HCC V28) CHF (congestive heart failur e) ([facility] V24, [facility] V28) Parkinson's disease ([facility] V24, [facility] V28) 2019 Head injury Concussion Fall Family History Medical History Relation Name Comments [...] your loved ones. For example, child care associate teacher or elderly care for an older [...] Sign Reading Time Taken Comments Blood Pressure 104/62 05/15/2025 8:51 AM EST Pulse 60 05/15/2025 8:51 AM EST Temperature 36.3 C (97.3 F) 04/03/2025 11:31 AM EDT Respiratory Rate 12 04/03/2025 11:31 AM EDT Oxygen Saturation 96% 05/15/2025 8:51 AM EST Inhaled Oxygen Concentration - - Weight 69.9 kg (154 lb) 05/15/2025 8:51 AM EST Height 175.3 cm (5' 9 ) 05/15/2025 8:51 AM EST Body Mass Index 22.74 05/15/2025 8:51 AM EST Plan of Treatment Upcoming Encounters Date Type Department Care Team (Late st Contact Info) Description 07/13/2025 11:10 AM EST Office Visit [facility] [address] [place] [phone] Eliz Nolasco NP [address] [place] [address] Dr [address] [place] [phone] 10/02/2025 9:30 AM EDT Office Visit Adult Medicine [address] [phone] Miguel Chowdary MD [address] [place] [address] Health Maintenance Due Date Last Done Comments Drug Screen 1955 Non-Opioid Controlled Substance Agreement 1955 Zoster Vaccines (1 of 2) 1974 RSV Immunization Adult Patients (1 - Risk 50-74 years 1-dose series) 2005 Depression Screening 07/05/2024 06/22/2024 Influenza Vaccine (#1) 2025 , 06/22/2022, 07/21/2021, Additional history exists Social Influencers of Health Screening 06/22/2025 06/22/2024 Falls Risk Assessment 06/29/2025 06/29/2024, 024 Medicare Annual Wellness Visit 04/03/2026 04/03/2025 Hypertension/CHF/CAD Annual BMP Blood Test 05/26/2026 05/26/2025, 03/27/2025, 10/27/2024, Additional history exists Colorectal Cancer Screening: Colonoscopy 10/29/2026 10/29/2021 Cholesterol Screening (Lipid Panel) 03/27/2030 03/27/2025, 01/20/2024, 01/20/2024 DTaP,Tdap,and Td Vaccines (3 - [...] Procedure Name Priority Date/Time Associated Diagnosis Comments CARDIAC CONE CLEANER W/ CONNECTION (MCOT) Routine 05/30/2025 7:06 AM EST Syncope, unspecified syncope type BASIC METABOLIC PANEL Routine 05/26/2025 11:06 AM EST Hypotension, unspecified hypotension type ECG 12-LEAD Routine 05/15/2025 10:45 AM EST Primary hypertension TRANSTHORACIC ECHOCARDIOGRAM (TTE) COMPLETE Routine 04/11/2025 11:39 AM EDT Leg swelling Coronary artery disease involving circle coronary artery of circle heart without angina pectoris Ischemic cardiomyopathy LIPID PANEL WITH REFLEX TO DIRECT LDL Routine 03/27/2025 10:41 AM EDT Encounter for screening for cardiovascular disorders FALLS RISK ASSESSMENT Routine 01/20/2024 COLONOSCOPY Routine 10/29/2021 HEPATITIS C SCREENING Routine 04/05/2020 from Last 3 Months or Most Recently Relevant to Health Maintenance Results * CARDIAC CONE CLEANER W/ CONNECTION (MCOT) (05/30/2025 7:06 AM EST) Anatomical Region Laterality Modality Cardiac Diagnost ic Impressions 06/19/2025 6:06 PM EST 1. The predominant rhythm was sinus. 2. The average heart rate was 67 bpm, minimum heart rate was 48 bpm, maximum heart rate was 105 bpm. 3. Total VE burden: 0.6% consisting of singles. 4. Total SVE burden: 0.8% consisting of singles, & SVE Couplet. 5. There were 2 patient triggered symptomatic events. Narrative 06/19/2025 6:06 PM EST [facility] DIAGNOSTIC TESTING DEPARTMENT [address] [facility], [id number], [place] [address] TEL: FAX: TYPE OF TEST 7 day ROCT monitor. DATES OF MONITORIN05/29/25- 06/05/25 REQUESTING PHYSICIAN: Eliz Nolasco NP PRIMARY CARE PROVIDER: Miguel Chowdary MD INDICATION: Syncope Eliz Nolasco NP CV CARDIAC SERVICES PROCEDURES Final Result * (ABNORMAL) Basic metabolic panel (05/26/2025 11:06 AM EST) Glucose 77 70 - 99 mg/dL [facility] Blood Urea Nitrogen (BUN) 13 8 - 27 mg/dL [facility] Creatinine 0.80 0.76 - 1.27 mg/dL [facility] 1 eGFR 96 >59 mL/min/1.7 3 [facility] 1 BUN/Creatinine Ratio 16 10 - 24 [facility] 1 Sodium 140 134 - 144 mmol/L [facility] Potassium 4.4 3.5 - 5.2 mmol/L [facility] 1 Chloride 103 96 - 106 mmol/L [facility] 1 Carbon Dioxide 31(H) 20 - 29 mmol/L [facility] 1 Calcium 8.8 8.6 - 10.2 mg/dL [facility] 1 Blood Venous blood specimen / Unknown 05/26/2025 11:06 AM EST 05/26/2025 Narrative [facility] 1 - 05/27/2025 2:06 AM EST Performed at: 01 - [facility] [place], [address], [place] [id number] [employer] Supervisor: Gilbert Byers MD, Phone: [phone] us Eliz Nolasco NP LAB BLOOD ORDERABLES Final Res ult [facility] 1 * ECG 12 lead (05/15/2025 10:45 AM EST) Ventricular Rate ECG 59 BPM GEMUSE Atrial Rate 59 BPM GEMUSE P-R Interval 148 ms GEMUSE QRS Duration 82 ms GEMUSE Q-T Interval 428 ms GEMUSE QTc 423 ms GEMUSE P Wave [place] 78 degrees GEMUSE R [place] 77 degrees GEMUSE T [place] 66 degrees GEMUSE ECG Interpretation Sinus bradycardia Otherwise normal ECG When compared with ECG of 05-FEB-2025 09:09, No significant change was found Confirmed by MD CRISTIANO, OLIVA ([id number]) on 05/17/2025 5:11:33 PM GEMUSE 05/15/2025 9:22 AM EST 05/17/2025 5:11 PM EST us Eliz Nolasco NP ECG ORDERABLES Edited Result - Final GEMUSE * (ABNORMAL) TRANSTHORACIC ECHOCARDIOGRAM (TTE) COMPLETE (04/11/2025 11:39 AM EDT) Left Atrium Minor [place] 6.0 cm CV PACS Left Atrium Major [place] 5.2 cm CV PACS [place] Area Sys [...] was difficult due to: patient body habitus. us Eliz Nolasco NP CV ECHO PROCEDURES Final Resul t * Lipid panel with reflex to direct LDL (03/27/2025 10:41 AM EDT) Cholesterol 142 0 - 200 mg/dL LAB CHEMISTRY METHOD 03/27/2025 3:45 PM EDT [facility] Triglycerides 49 0 - 150 mg/dL LAB CHEMISTRY METHOD 03/27/2025 3:45 PM EDT [facility] HDL 74 >=40 mg/dL LAB CHEMISTRY METHOD 03/27/2025 3:45 PM EDT [facility] LDL Calculated 58 0 - 100 mg/dL LAB CHEMISTRY METHOD 03/27/2025 3:45 PM EDT [facility] Comment:Estimated LDL Calcul ated using equation: Total cholesterol - HDL cholesterol - (Triglycerides/5) VLDL Cholesterol Kanu 9.8 mg/dL LAB CHEMISTRY METHOD 03/27/2025 3:45 PM EDT [facility] Non HDL Chol. (LDL+VLDL) 68 <145 mg/dL LAB CHEMISTRY METHOD 03/27/2025 3:45 PM EDT [facility] Chol/HDL Ratio 1.9 0.0 - 4.4 LAB CHEMISTRY METHOD 03/27/2025 3:45 PM EDT [facility] Blood Venous blood specimen / Unknown Venipuncture / Unknown 03/27/2025 10:41 AM EDT 03/27/2025 10:41 AM EDT Tess Cortes MARBLEIZING MACHINE TENDER LAB BLOOD ORDERABLES Final R esult [facility] [address] [place] [address], * Falls Risk Assessment (01/20/2024) [facility] Falls Risk Assessment abstracted Historical Provider HEALTH MAINTENANCE Final Result * Colonoscopy (10/29/2021) [facility] Colonoscopy no interpreta tion,abstr acted Anatomical Region Laterality Modality Other [facility] Provider HEALTH MAINTENANCE Final Result * Hepatitis C Screening (04/05/2020) [facility] Hepatitis C Screening abstracted Historical Provider HEALTH MAINTENANCE Final Result from Last 3 Months or Most Recently Relevant to Health Maintenance Insurance MEDICARE [facility] Care Teams Caddy/Caddie Supervisor Relationship Specialty Start Date End Date Miguel Chowdary MD [address] [place] [address] PCP - General Internal Medicine 01/24/19
--- OUTSIDE RECORDS SUMMARY | 2025-07-04 08:52 | XMS_ITS | Encounter Summary ---
Author Organization [facility] Address [address] [place] [address] Care Team Providers Care Metal Ceiling Builder Name Role Phone Miguel Chowdary MD Primary Care Provider Unavailabl e Encounter Details Date Type Department Care Team (Late st Contact Info) Description 12/08/2019 Scanned Document [facility] Heart & Vascular [address] [place] [phone] Rm Francois MD [address] [place] [address] Social History Tobacco Use Types Packs/Day Years [...] on filedocumented in this encounter Care Teams Metal Ceiling Builder Relationship Specialty Start Date End Date Miguel Chowdary MD PCP - General 09/28/19 documented as of this encounter
--- OUTSIDE RECORDS SUMMARY | 2025-07-04 08:52 | XMS_ITS | Encounter Summary ---
Author Organization [facility] Address [address] [place] [address] Care Team Providers Care Spray Machine Tender Name Role Phone Miguel Chowdary MD Primary Care Provider Unavailabl e Encounter Details Date Type Department Care Team (Late st Contact Info) Description 12/08/2019 Scanned Document [facility] Heart & Vascular [address] [place] [phone] Rm Francois MD [address] [place] [address] Social History Tobacco Use Types Packs/Day Years [...] on filedocumented in this encounter Care Teams Spray Machine Tender Relationship Specialty Start Date End Date Miguel Chowdary MD PCP - General 09/28/19 documented as of this encounter
--- OUTSIDE RECORDS SUMMARY | 2025-07-04 08:52 | XMS_ITS | Encounter Summary ---
Author Organization [facility] Address [address] [place] [address] Care Team Providers Care Travel Ticketing Reviewer Name Role Phone Miguel Chowdary MD Primary Care Provider Unavailabl e Encounter Details Date Type Department Care Team (Late st Contact Info) Description 10/10/2019 Scanned Document [facility] EXTERNAL DATA DEPARTMENT [address] [address] Social History Tobacco Use Types Packs/Day Years [...] on filedocumented in this encounter Care Teams Travel Ticketing Reviewer Relationship Specialty Start Date End Date Miguel Chowdary MD PCP - General 09/28/19 documented as of this encounter
--- OUTSIDE RECORDS SUMMARY | 2025-07-04 08:52 | XMS_ITS | Clinical Summary ---
Author Organization [facility] Address [address] [place] [address] Care Team Providers Care Oracle Database Developer Name Role Phone Miguel Chowdary MD Primary Care Provider Unavailabl e Allergies No known active allergies Medications nitroglycerin (NITROSTAT) 0.[address] 0.3 mg under the tongue every 5 (five) minutes as needed. Active lisinopril (PRINIVIL,ZeSTRIL) 5 MG tabletIndications:C oronary artery disease involving mohegan coronary artery of mohegan heart without angina pectoris Take 1 tablet (5 mg total) by mouth daily. 90 tablet 3 0 Active atorvastatin (LIPITOR) 40 MG tabletIndications:C oronary artery disease involving mohegan coronary artery of mohegan heart without angina pectoris Take 1 tablet (40 mg total) by mouth daily. 90 tablet 3 0 Active BRILINTA 90 MG tabletIndications:C oronary artery disease involving mohegan coronary artery of mohegan heart without angina pectoris Take 1 tablet (90 mg total) by mouth 2 (two) times a day. 180 tablet 3 0 Active aspirin enteric coated (aspirin enteric coated) 81 MG EC tabletIndications:C oronary artery disease involving mohegan coronary artery of mohegan heart without angina pectoris Take 1 tablet [...] Influenza Vaccine 02/02/2025 COVID-19 Vaccine (1 - 2024-2 6 season) 2025 Hepatitis B Vaccines Aged Out No long er eligible based on patient's age to complete this topic Insurance [facility] Care Teams Oracle Database Developer Relationship Specialty Start Date End Date Miguel Chowdary MD PCP - General 09/28/19
--- OUTSIDE RECORDS SUMMARY | 2025-07-04 08:52 | XMS_ITS | Encounter Summary ---
Author Organization [facility] Address [address] [place] [address] Care Team Providers Care Bilingual Speech Therapist Name Role Phone Miguel Chowdary MD Primary Care Provider Unavailabl e Encounter Details Date Type Department Care Team (Late st Contact Info) Description 01/01/2020 Scanned Document [facility] Heart [facility] V[facility] [address] [place] [address] [phone] Rm Francois MD [address] [place] [address] Social History Tobacco Use Types Packs/Day Years [...] on filedocumented in this encounter Care Teams Bilingual Speech Therapist Relationship Specialty Start Date End Date Miguel Chowdary MD PCP - General 09/28/19 documented as of this encounter
--- OUTSIDE RECORDS SUMMARY | 2025-07-04 08:52 | XMS_ITS | Encounter Summary ---
Author Organization [facility] Address [address] [place] [address] Care Team Providers Care Sole Edge Inker Machine Name Role Phone Miguel Chowdary MD Primary Care Provider Unavailabl e Encounter Details Date Type Department Care Team (Late st Contact Info) Description 10/10/2019 Scanned Document [facility] [address] [id number] Social History Tobacco Use Types Packs/Day Years [...] filedocumented in this encounter Care Teams Sole Edge Inker Machine Relationship Specialty Start Date End Date Miguel Chowdary MD PCP - General 09/28/19 documented as of this encounter
== END ==
LOC: HO.SL 08:47
PROVIDERS: PCP Internal Medicine; Visit Provider Psychiatry & Neurology Neurology
DX: G47.33 Obstructive sleep apnea (adult) (pediatric) (principal); R40.0 Somnolence; G47.52 REM sleep behavior disorder
CPT/HCPCS: 95806